=== PATIENT | male | born 1985 | race Two or more races ===

== ENCOUNTER 2025-02-09 20:00 | Emergency (ER) | payer MEDICAID, SELFPAY ==
[2025-02-09 20:20] VITALS: BP 121/69; PULSE 95; RESP 18; TEMP 36.6; O2SAT 96
--- NOTE | 2025-02-09 20:49 | PD.EDRME ---
Rapid Medical Screening Exam RME Arrival date/time: 02/09/25 20:00 40M with history of DM presents to ED after being sent by PCP for possible blood transfusion. POC Hgb at PCP was around 6. Patient denies recent unintentional weight loss, obvious source of bleeding, and red/black stools. Chief Complaint: General Adult/Misc Complain Vital signs: Vital Signs Temperature 97.9 F 02/09/25 20:20 Pulse Rate 95 02/09/25 20:20 Respiratory Rate 18 02/09/25 20:20 Blood Pressure 121/69 02/09/25 20:20 Pulse Oximetry (%) 96 02/09/25 20:20 Oxygen Delivery Method Room Air 02/09/25 20:20
[2025-02-09 21:06] LABS: Basophils % (Auto) 0 % (0-2.5); Eosinophils % (Auto) 1 % (0-10); Immature Granulocytes % (Auto) 0 % (0-0); Immature Granulocytes Auto 0.01 Thou/mm3 (0.00-0.00); Lymphocytes # (Auto) 1.7 Thou/mm3 (1.0-4.8); Lymphocytes % (Auto) 66 % (10-50); Mean Corpuscular HGB Conc 33.8 g/dl (31.0-37.0); Mean Corpuscular Volume 103 fL (80-100); Monocytes # (Auto) 0.3 Thou/mm3 (0.0-0.8); Monocytes % (Auto) 12 % (0-12); Neutrophils # (Auto) 0.5 Thou/mm3 (1.8-7.7); Neutrophils % (Auto) 20 % (37-80); Nucleated Red Blood Cell % 4 /100 WBC (0); Platelet Count 192 Thou/mm3 (140-440); RDW Standard Deviation 93.3 fL (35.1-43.9); Red Blood Count 2.06 Miln/mm3 (4.50-5.90)
[2025-02-09 21:20] LABS: Collection Type, Urine Clean Catch
[2025-02-09 21:26] LABS: Alanine Aminotransferase 21 U/L (10-49); Albumin, Serum 4.2 gm/dL (3.5-5.0); Albumin/Globulin Ratio 1.4 (1.2-2.2); Alkaline Phosphatase 102 U/L (46-116); Anion Gap 7 (7-16); Aspartate Amino Transferase 20 U/L (0-34); BUN/Creatinine Ratio 15 Ratio (12-20); Bilirubin,Total 0.3 mg/dL (0.3-1.2); Blood Urea Nitrogen 15 mg/dL (9-23); Calcium 9.5 mg/dL (8.3-10.6); Calcium (Corrected) 9.5 mg/dL (8.5-10.1); Carbon Dioxide 27.4 mMol/L (20.0-31.0); Chloride 105 mMol/L (98-107); Globulin 3.1 gm/dL (2.3-3.5); Glucose 244 mg/dL (74-106); Osmolality,Calculated 286 (275-295); Potassium 3.7 mMol/L (3.4-5.1); Sodium 139 mMol/L (136-145); Total Protein 7.3 gm/dL (5.7-8.2); eGFR > 60 See Note
[2025-02-09 21:27] LABS: Bilirubin,Urine Negative (Negative); Blood,Urine Negative (Negative); Clarity,Urine Clear (Clear/Hazy); Color,Urine Lt-Yellow (Lt Yel-Yel); Glucose, Urine 4+ (Negative); Ketones,Urine Negative (Negative); Leukocyte Esterase,Urine Negative (Negative); Nitrite,Urine Negative (Negative); PH,Urine 6.5 (5.0-7.0); Protein,Urine Trace (Neg - Trace); RBC,Urine 2 /hpf (0-3); Specific Gravity,Urine 1.031 (1.001-1.035); Squamous Epithelial Cell,Urine 4 /hpf (0-5); Urobilinogen,Urine Negative mg/dL (0.0-1.0); WBC,Urine < 1 /hpf (0-5)
[2025-02-09 22:08] LABS: Hematocrit 21.3 % (41.0-53.0); Hemoglobin 7.2 g/dL (13.5-16.0); White Blood Count 2.6 Thou/mm3 (3.8-10.6)
[2025-02-09 23:25] VITALS: BP 135/82; PULSE 72; RESP 15; TEMP 36.6; O2SAT 100
[2025-02-10] VITALS (10 sets, daily range): BP systolic 115–146; BP diastolic 78–88; PULSE 54–73; RESP 15–20; TEMP 36.4–36.8; O2SAT 98–100
--- NOTE | 2025-02-10 02:09 | PD.EDADULT ---
ED General RME/HPI General Chief complaint: General Adult/Misc Complain Stated complaint: POSSIBLE BLOOD TRANSFUSION Arrival date/time: 02/09/25 20:00 Limitations: no limitations RME / HPI RME / HPI narrative: 02/09/25 20:00 40M with history of DM presents to ED after being sent by PCP for possible blood transfusion. POC Hgb at PCP was around 6. Patient denies recent unintentional weight loss, obvious source of bleeding, and red/black stools. ------- Dr. Khan's Main ED Evaluation: 40yo male with a history of DM presents to the ED for a possible blood transfusion. Patient states he recently had outpatient labs done by his PCP and was sent over for evaluation due to having a low hemoglobin of 6. He denies any palpitations, chest pain, shortness of breath, dizziness, N/V, hematuria, hematemesis, rectal bleeding or any other associated symptoms. No known allergies. Related Data Previous Rx's ?Medication ?Instructions ?Recorded azithromycin 250 mg tablet See Rx Instructions PO .COMPLEX #6 07/28/24 tabs Allergies Allergy/AdvReac Type Severity Reaction Status Date / Time No Known Allergies Allergy Verified 02/09/25 20:01 Review of Systems Review of Systems Systems Reviewed: All systems reviewed, normal except as documented Past Medical History Past Medical History CARDIAC: Negative Congestive Heart Failure RESPIRATORY: Negative Chronic Obstructive Pulmonary Disease (COPD) GENITOURINARY: Negative Renal Disease ENDOCRINE: Positive Diabetes Mellitus Type 2; Negative Diabetes Mellitus Type 1 Social History SMOKING STATUS: Never smoker SECOND HAND EXPOSURE: No ED Exam Narrative Physical exam: Patient appears pale, otherwise no acute distress. General Limitations: Present no limitations General appearance: Present alert; Absent obtunded or in distress Head Head exam: Present atraumatic Eye Eye exam: Present normal appearance, PERRL and EOMI; Absent scleral icterus ENT ENT exam: Present normal exam, normal oropharynx and mucous membranes moist Neck Neck exam: Present normal inspection, full ROM and trachea midline Chest Chest inspection: Present normal inspection and symmetric chest wall rise Respiratory Respiratory exam: Present normal lung sounds bilaterally Cardiovascular Cardiovascular exam: Present regular rate, normal rhythm and normal heart sounds Abdominal Exam Abdominal exam: Present soft and normal bowel sounds Extremities Exam Extremities exam: Present normal inspection and full ROM Back Exam Back exam: Present normal inspection and full ROM Neurological Exam Neurological exam: Present alert, oriented X3 and CN II-XII intact Psychiatric Psychiatric exam: Present normal affect and normal mood Skin Skin exam: Present warm, dry, intact and other (Normal cap refill) Course Course Course Narrative: Patient is placed in the bed. All labs are sent. Hemoglobin shows that the number is low at 7.2/23. The patient denies prior blood per rectum or black stools. We discussed plus minuses for transfusion at this time the patient accepts transfusion. 0242-Blood transfusion is ordered Quality Measures none Orders Category Date Time Status Transfuse,blood/blood products NOW Care 02/10/25 02:11 Completed CBC Stat Lab 02/09/25 20:52 Completed CMP [Comprehensive Metabolic Panel] Stat Lab 02/09/25 20:52 Completed Packed Cells [Red Blood Cells] Stat Lab 02/10/25 02:11 Completed Path Review Blood Smear Stat Lab 02/09/25 20:52 Completed Type and Screen Stat Lab 02/09/25 20:52 Completed Urinalysis Stat Lab 02/09/25 21:10 Completed Vital Signs Vital signs: Vital Signs Temperature 97.9 F 02/09/25 20:20 Pulse Rate 95 02/09/25 20:20 Respiratory Rate 18 02/09/25 20:20 Blood Pressure 121/69 02/09/25 20:20 Pulse Oximetry (%) 96 02/09/25 20:20 Oxygen Delivery Method Room Air 02/09/25 20:20 [facility] Patient data [place] records [place] [facility] [place] (Per chart review, patient has no previous ED visits or admissions to this facility.) Clinical information provided by:: patient Social determinants that could affect healthcare access:: none Patient has the following chronic illnesses:: DM How is presenting disease/condition affected by chronic disease/condition?: uneffected by Evaluation data The following diagnostics were reviewed and interpreted by me:: lab results Lab and/or radiology exams considered but not ordered:: none Interpretation Summary: HnH is low at 7.2/21.3, Platelets are normal, Glucose is 244, UA is unremarkable, according to my interpretation. Medications Medications considered but not ordered:: none Medication administrations:: 1U PRBCs Consultations Consultation(s) initiated? (list below): No Diagnosis Differential Diagnosis ED Complaint MDM: chronic anemia, undiagnosed GI bleed, anemia secondary to diabetes Most likely diagnosis given after review of the tests above:: see clinical impression below Admission Indicated Admission indicated?: not indicated Explain why admission is indicated or not indicated:: No criteria for admission. Admission Request Was there a request for admission?: No Disposition Plan Disposition Plan: Discharge Discharge Attestation Discharge Attestation: The patient and all family members were given an opportunity to ask questions and understood the discharge instructions. Discharge instructions specifically effects, indications for sooner follow up or return to the emergency department, and the expected course of current diagnosis. Patient condition: Stable Medical Decision Making Differential Diagnosis Differential Diagnosis: chronic anemia, undiagnosed GI bleed, anemia secondary to diabetes Lab Data 02/09/25 20:52 02/09/25 20:52 Labs: Lab Results 02/09/25 02/09/25 Range/Units 20:52 21:10 WBC 2.6 L (3.8-10.6) Thou/mm3 RBC 2.06 L (4.50-5.90) Miln/mm3 Hgb 7.2 L (13.5-16.0) g/dL Hct 21.3 L* (41.0-53.0) % MCV 103 H (80-100) fL MCH 35.0 (25.0-35.0) pg MCHC 33.8 (31.0-37.0) g/dl RDW Std Deviation 93.3 H (35.1-43.9) fL Plt Count 192 (140-440) Thou/mm3 Neut % (Auto) 20 L (37-80) % Lymph % (Auto) 66 H (10-50) % Josephine % (Auto) 12 (0-12) % Eos % (Auto) 1 (0-10) % Baso % (Auto) 0 (0-2.5) % Neut # (Auto) 0.5 L (1.8-7.7) Thou/mm3 Lymph # (Auto) 1.7 (1.0-4.8) Thou/mm3 Josephine # (Auto) 0.3 (0.0-0.8) Thou/mm3 Eos # (Auto) 0.0 (0.0-0.5) Thou/mm3 Baso # (Auto) 0.0 (0.0-0.2) Thou/mm3 Immature Gran # (Auto) 0.01 H (0.00-0.00) Thou/mm3 Absolute Nucleated RBC 0.10 H (0.00-0.00) Thou/mm3 Immature Gran % 0 (0-0) % Nucleated RBC % 4 H (0) /100 WBC Smear Path Review Sent to Pathologist Sodium 139 (136-145) mMol/L Potassium 3.7 (3.4-5.1) mMol/L Chloride 105 (98-107) mMol/L Carbon Dioxide 27.4 (20.0-31.0) mMol/L Anion Gap 7 (7-16) BUN 15 (9-23) mg/dL Creatinine 1.0 (0.6-1.3) mg/dL Estim Creat Clear Calc Not Performed. eGFR > 60 (60 - ) See Note BUN/Creatinine Ratio 15 (12-20) Ratio Glucose 244 H (74-106) mg/dL Calculated Osmolality 286 (275-295) Calcium 9.5 (8.3-10.6) mg/dL Corrected Calcium 9.5 (8.5-10.1) mg/dL Total Bilirubin 0.3 (0.3-1.2) mg/dL AST 20 (0-34) U/L ALT 21 (10-49) U/L Alkaline Phosphatase 102 (46-116) U/L Total Protein 7.3 (5.7-8.2) gm/dL Albumin 4.2 (3.5-5.0) gm/dL Globulin 3.1 (2.3-3.5) gm/dL Albumin/Globulin Ratio 1.4 (1.2-2.2) Ur Collection Type Clean Catch Urine Color Lt-Yellow (Lt Yel-Yel) Urine Clarity Clear (Clear/Hazy) Urine pH 6.5 (5.0-7.0) Ur Specific [place] 1.031 (1.001-1.035) Urine Protein Trace (Neg - Trace) Urine Glucose (UA) 4+ A (Negative) Urine Ketones Negative (Negative) Urine Blood Negative (Negative) Urine Nitrite Negative (Negative) Urine Bilirubin Negative (Negative) Urine Urobilinogen (Auto) Negative (0.0-1.0) mg/dL Ur Leukocyte Esterase Negative (Negative) Urine RBC 2 (0-3) /hpf Urine WBC < 1 (0-5) /hpf Ur Squamous Epith Cells 4 (0-5) /hpf Urine Bacteria None (None) Blood Type O Positive Antibody Screen NEGATIVE Crossmatch See Detail Blood Bank Wristband ID Yes Discharge Plan Plan Patient Disposition: HOME (Self Care) Prescriptions/Referrals Prescriptions/Med Rec: No Action azithromycin 250 mg tablet See Rx Instructions PO .COMPLEX Qty: 6 0RF Rx Instructions: For 250 mg dose pack: take 500 mg today (day 1), then 250 mg for 4 days (days 2-5) PO Referrals: Family healthcare network [Other] - In 1 week (You may need referral to specialist to figure out why you are having anemia.) No Primary/Family,Physician [Primary Care Provider] - In 1 week Problem List Clinical Impression: Anemia Patient/Caregiver Discharge Instructions Education Materials: Anemia Additional Instructions: Please follow-up with your primary care to continue the workup for your anemia. Return to the emergency department for any worsening symptoms, or any other concerns Print Language: Khmer Stand Alone Forms: Melly Award Info., Patient Portal Info Letter
--- NOTE | 2025-02-10 07:27 | PC.NURSE ---
Report received from pm nurse, patient lying in gurney queitly, no distress noted, patient to er stating he was sent by pmd for low H/H patient states he has h/o anemia, denies blood in stool, denies n/v, skin is warm dry and pink, patient has PRBC'S running via 18g left forearm, no s/s of adverse reaction, patient denies pain, patient has no other needs at this time. Call light within reach.
[2025-02-10 11:52] LABS: Path Review Blood Smear Sent to Pathologist
== END 2025-02-10 09:37 | disposition home or self-care (01) ==
PROVIDERS: Physician Assistant; Emergency Provider Emergency Medicine
DX: D64.9 Anemia, unspecified (principal); E11.9 Type 2 diabetes mellitus without complications
CPT/HCPCS: 36415; 36430; 80053; 81001; 85025; 86850; 86900; 86901; 86923; 99285; P9016

== ENCOUNTER 2025-06-14 16:08 | Inpatient (IN) | payer MEDICAID, SELFPAY ==
[2025-06-14 16:09] VITALS: BMI 23.8
[2025-06-14 16:58] VITALS: BP 111/68; PULSE 104; RESP 18; TEMP 37.2; O2SAT 98
--- NOTE | 2025-06-14 18:14 | PD.EDRME ---
Rapid Medical Screening Exam RME Arrival date/time: 06/14/25 16:08 Chief Complaint: Weakness Time Seen by Provider: 06/14/25 17:40 Vital signs: Vital Signs Temperature 98.9 F 06/14/25 16:58 Pulse Rate 104 H 06/14/25 16:58 Respiratory Rate 18 06/14/25 16:58 Blood Pressure 111/68 06/14/25 16:58 Pulse Oximetry (%) 98 06/14/25 16:58 Oxygen Delivery Method Room Air 06/14/25 16:58 Vital signs reviewed by provider: Yes RME Narrative: 40-year-old insulin-dependent diabetic male presents to the ED with a complaint of chest pain and epigastric pain that comes on every 5 minutes since this past . He has had associated mild shortness of breath as well as reflux symptoms up into his throat. He has had a cough as well as the need to clear his throat. He has had vomiting but no diarrhea. He denies any fever or chills. I have greeted and performed a focused initial assessment of this patient. A comprehensive ED assessment and evaluation of the patient, analysis of all test results, and completion of the medical decision making process will be conducted by additional ED providers.
--- NOTE | 2025-06-14 18:18 | XR_ITS ---
Examination: PA chest single view TECHNIQUE: Upright PA chest single view. Date and time: June 14, 2025, 1856 hours. INDICATIONS: Chest pain today coughing 3 days FINDINGS: Normal heart size. No pneumonia or pulmonary edema. Osseous structures intact. IMPRESSION: No pneumonia or pulmonary edema
--- NOTE | 2025-06-14 18:18 | XR_ITS ---
Examination: Abdomen sonogram, complete Date and time of exam: June 14, 2025 1917 hours INDICATIONS: Jaundice right upper abdominal pain beginning one week ago. Technique: Multiple real-time grayscale transabdominal sonographic images of the abdomen have been obtained. Findings: Contracted gallbladder Gallbladder wall 0.4 cm Common bile duct 0.2 cm Pancreatic head 2.6 cm Liver 13.9 cm fatty infiltration no focal liver lesions Normal hepatopedal portal venous flow Patent IVC Right kidney 8.5 cm cortex 1.3 cm Left kidney 9.7 cm renal cortex 1.8 cm Spleen obscured by bowel gas IMPRESSION: Recommend repeating the gallbladder portion of the study with fasting Normal common bile duct Liver normal size fatty infiltration
[2025-06-14 19:13] VITALS: BP 108/69; PULSE 96; RESP 19; TEMP 36.7; O2SAT 100
[2025-06-14 19:14] LABS: Beta Hydroxybutyrate 0.0 mmol/L (<0.6)
--- NOTE | 2025-06-14 19:21 | PC.NURSE ---
medical tech at bedside
[2025-06-14 19:34] LABS: Alanine Aminotransferase 92 U/L (10-49); Albumin, Serum 3.7 gm/dL (3.5-5.0); Albumin/Globulin Ratio 1.5 (1.2-2.2); Alkaline Phosphatase 112 U/L (46-116); Amylase 127 U/L (30-118); Anion Gap 9 (7-16); Aspartate Amino Transferase 39 U/L (0-34); BUN/Creatinine Ratio 10 Ratio (12-20); Bilirubin,Total 0.4 mg/dL (0.3-1.2); Blood Urea Nitrogen 10 mg/dL (9-23); Calcium 8.3 mg/dL (8.3-10.6); Calcium (Corrected) 8.5 mg/dL (8.5-10.1); Carbon Dioxide 22.4 mMol/L (20.0-31.0); Chloride 112 mMol/L (98-107); Creatinine (Component) 1.0 mg/dL (0.6-1.3); Estimated Creatinine Clearance 68.8 mL/min (>60); Globulin 2.5 gm/dL (2.3-3.5); Glucose 136 mg/dL (74-106); Lipase 73 U/L (12-53); Magnesium 1.7 mg/dL (1.6-2.6); Osmolality,Calculated 285 (275-295); Phosphorous 3.2 mg/dL (2.4-5.1); Potassium 3.7 mMol/L (3.4-5.1); Sodium 143 mMol/L (136-145); Total Protein 6.2 gm/dL (5.7-8.2); Troponin I < 0.020 ng/mL (0.0-0.045); eGFR > 60 See Note
[2025-06-14 19:54] LABS: Amphetamine/Methamp Scrn,U Negative (Negative); Barbiturate Screen,Urine Negative (Negative); Benzodiazepines Screen,Urine Negative (Negative); Benzoylecgonine Screen, Ur Negative (Negative); Fentanyl Screen,Urine Negative (Negative); Opiate Screen,Urine Negative (Negative); THC Screen,Urine Negative (Negative)
[2025-06-14] MEDS: ONDANSETRON INJ 2 MG/ML INJ 2 ML 4 MG IVP (20:28)
[2025-06-14] MEDS: SODIUM CHLORIDE 0.9% 1000 ML 1,000 ML 999 ML IV (20:29)
[2025-06-14 20:33] VITALS: BP 103/62; PULSE 94; RESP 18; TEMP 36.7; O2SAT 100
--- NOTE | 2025-06-14 20:45 | EDNOTE_ITS ---
ED Chest Pain RME/HPI General Chief Complaint: Weakness Stated Complaint: WEAKNESS/ N/V Time Seen by Provider: 06/14/25 17:40 Arrival date/time: 06/14/25 16:08 RME / HPI RME / HPI narrative: 40-year-old insulin-dependent diabetic male presents to the ED with a complaint of chest pain and epigastric pain that comes on every 5 minutes since this past . He has had associated mild shortness of breath as well as reflux symptoms up into his throat. He has had a cough as well as the need to clear his throat. He has had vomiting but no diarrhea. He denies any fever or chills. I have greeted and performed a focused initial assessment of this patient. A comprehensive ED assessment and evaluation of the patient, analysis of all test results, and completion of the medical decision making process will be conducted by additional ED providers. DR. RAHMAN MAIN ED EVALUATION: 40 y/o male with Hx of Type II DM presents to ED c/o non-radiating, centralized chest pain with cough, dizziness, and some vomiting x 5 days. Denies fever without a formal temperature and diarrhea. Patient experienced chills on one occasion after a shower. Patient has also been eating less stating he feels something stuck in his chest when he coughs and swallows. Related Data Allergies Allergy/AdvReac Type Severity Reaction Status Date / Time No Known Allergies Allergy Verified 02/09/25 20:01 Review of Systems Review of Systems Systems Reviewed: All systems reviewed, normal except as documented Past Medical History Past Medical History ENDOCRINE: Positive Endocrine Disorders and Diabetes Mellitus Type 2 ED Exam Narrative Physical exam: GENERAL APPEARANCE: alert and oriented x 4, well-developed, well-nourished, no acute distress VITALS: All vitals were reviewed and the pulse ox is 100% on room air, which is normal according to my interpretation. HEENT: Normocephalic, atraumatic; pupils equal, round, reactive to light; EOMI; mucous membranes pink, moist; oropharynx clear NECK: Supple LUNGS: CTABL; no wheezes, no rales, no rhonchi HEART: Regular rate, regular rhythm; normal S1, S2; no murmurs ABDOMEN: non distended; normal BS; soft, mild epigastric tenderness, no guarding, no rebound; no masses, no organomegaly, no hernia BACK: no CVA tenderness EXTREMITIES: atraumatic; no edema NEUROLOGIC: awake; alert and oriented x4; cranial nerves II-XII grossly intact; no focal sensory or motor deficits PSYCHIATRIC: appropriate mood and affect SKIN: warm, dry, palor; no rashes Course Course Course Narrative: CXR is ordered for determining the etiology of shortness of breath. Quality Measures none Orders Category Date Time Status Bedside Blood Glucose NOW Care 06/14/25 19:11 Active EKG (ED ONLY) *Do not use* NOW Care 06/14/25 18:19 Completed IV [Insert IV] NOW Care 06/14/25 18:18 Active NPO STAT Care 06/14/25 18:18 Active Transfuse,blood/blood products NOW Care 06/14/25 22:39 Active Consult to Gastroenterology Stat Cons 06/14/25 22:58 Ordered EKG (ED Only) Stat Exams 06/14/25 18:18 Ordered US abdomen Stat Exams 06/14/25 18:18 Completed XR chest 1V portable Stat Exams 06/14/25 18:18 Completed Acetone [Beta Hydroxybutyrate] Stat Lab 06/14/25 18:51 Completed Amylase Stat Lab 06/14/25 18:51 Completed BNP [B-Type Natriuretic Peptide] Stat Lab 06/14/25 22:09 Completed CBC Stat Lab 06/14/25 22:09 Results Comprehensive Metabolic Panel Stat Lab 06/14/25 18:51 Completed Drug Screen,Urine Stat Lab 06/14/25 19:17 Completed Folate Stat Lab 06/14/25 20:26 Completed Iron Panel Stat Lab 06/14/25 20:26 Completed Lipase Stat Lab 06/14/25 18:51 Completed Magnesium Stat Lab 06/14/25 18:51 Completed Phosphorous Stat Lab 06/14/25 18:51 Completed Red Blood Cells Stat Lab 06/14/25 22:50 Results Troponin I Stat Lab 06/14/25 18:51 Completed Troponin I Stat Lab 06/14/25 22:09 Completed Type and Screen Stat Lab 06/14/25 22:50 Results Vitamin B12 Stat Lab 06/14/25 20:26 Completed Lidocaine 2% Viscous [Xylocaine 2% Viscous] Med 06/14/25 21:03 Discontinued 15 ml PO X1 ONE Ondansetron Inj [Zofran Inj] Med 06/14/25 18:18 Discontinued 4 mg IVP X1 ONE Sodium Chloride 0.9% 1000 ml [Ns] 1,000 ml Med 06/14/25 18:18 Discontinued IV 999 mls/hr mg Hyd/Al Hyd/Stephanie Susp [Maalox Susp] Med 06/14/25 21:03 Discontinued 30 ml PO X1 ONE Vital Signs Vital signs: Vital Signs Temperature 98.9 F 06/14/25 16:58 Pulse Rate 104 H 06/14/25 16:58 Respiratory Rate 18 06/14/25 16:58 Blood Pressure 111/68 06/14/25 16:58 Pulse Oximetry (%) 98 06/14/25 16:58 Oxygen Delivery Method Room Air 06/14/25 16:58 PROCEDURES: Stool Hemoccult Procedural Steps Taken: stool placed in appropriate test area, developer placed on stool and control areas and controls appropriately positive and negative Hemoccult result: positive Chest Pain MDM Narrative MDM Narrative:: Scribe Attestation: Shanta Viera, am scribing for and in the presence of Dr. Rahman. Provider Notation: Although this document has been carefully reviewed, there may still be some phonetic and other typographical errors.? These errors are purely grammatical due to imperfections in the software program and should not be construed in any way to? compromise the substance of the patient's medical care during this visit. Patient data External records reviewed:: [facility] previous records (Reviewed prior ED records from 02/10/25. Patient was seen for Anemia.) Clinical information provided by:: patient Social determinants that could affect healthcare access:: none Patient has the following chronic illnesses:: Type II DM How is presenting disease/condition affected by chronic disease/condition?: exacerbated by Evaluation data The following diagnostics were reviewed and interpreted by me:: lab results and radiology exam(s) Lab and/or radiology exams considered but not ordered:: None Interpretation Summary: RADIOLOGY Chest X-Ray: FINDINGS: Normal heart size. No pneumonia or pulmonary edema. Osseous structures intact. IMPRESSION: No pneumonia or pulmonary edema Abdomen US: Findings: Contracted gallbladder Gallbladder wall 0.4 cm Common bile duct 0.2 cm Pancreatic head 2.6 cm Liver 13.9 cm fatty infiltration no focal liver lesions Normal hepatopedal portal venous flow Patent IVC Right kidney 8.5 cm cortex 1.3 cm Left kidney 9.7 cm renal cortex 1.8 cm Spleen obscured by bowel gas IMPRESSION: Recommend repeating the gallbladder portion of the study with fasting Normal common bile duct Liver normal size fatty infiltration Medications / Prescriptions Medications or Prescriptions considered but not ordered:: None Medication administrations:: Medication Administration History Acetaminophen (Acetaminophen 325 Mg Tablet) 650 mg PO Q6H PRN PRN Reason: PAIN SCALE 1-3 (mild Stop: 07/14/25 23:28 Dextrose (Dextrose 50%-Water Inj 50 Ml Syringe) 25 ml IV Q15MIN PRN PRN Reason: BG 50-70 responsive npo pt Stop: 07/14/25 23:40 Dextrose (Dextrose 50%-Water Inj 50 Ml Syringe) 50 ml IV Q15MIN PRN PRN Reason: BG <50 OR BG <70 & pt unresponsive Stop: 07/14/25 23:40 Glucagon (Glucagon Inj 1 Mg Vial) 1 mg IM Q15MIN PRN PRN Reason: BG <70, and no IV access Magnesium Sulfate (Magnesium Sulfate Ivpb) 4 gm in 50 mls @ 12.5 mls/hr IV X1 ONE Stop: 06/15/25 03:34 Last Admin: 06/15/25 01:01 Dose: 12.5 mls/hr Documented By: CCT Insulin Human Lispro (Insulin Lispro (Admelog) 1 Unit/0.01 Ml Unit) 0 unit SC [facility]; Protocol Stop: 07/15/25 07:29 Ondansetron HCl (Ondansetron Inj 2 Mg/Ml Inj 2 Ml) 4 mg IVP Q6H PRN; Protocol PRN Reason: NAUSEA OR VOMITING Stop: 07/14/25 23:28 Sennosides (Senna Tablet) 1 tab PO QDAY PRN; Protocol PRN Reason: constipation Stop: 07/14/25 23:28 Discontinued Medications Al Hydrox/Mg Hydrox/Simethicone (Mg Hyd/Al Hyd/Stephanie (Maalox Reg) Susp 30 Ml Udc) 30 ml PO X1 ONE Stop: 06/14/25 21:04 Last Admin: 06/14/25 21:17 Dose: 30 ml Documented By: CCT Sodium Chloride (Ns) 1,000 mls @ 999 mls/hr IV .Q1H1M ONE Stop: 06/14/25 19:18 Last Infusion: 06/14/25 21:30 Dose: Infused Documented By: Admin: 06/14/25 20:29 Dose: 999 mls/hr Documented By: CCT Lidocaine HCl (Lidocaine Viscous 2% 15 Ml Udc) 15 ml PO X1 ONE Stop: 06/14/25 21:04 Last Admin: 06/14/25 21:17 Dose: 15 ml Documented By: CCT Ondansetron HCl (Ondansetron Inj 2 Mg/Ml Inj 2 Ml) 4 mg IVP X1 ONE; Protocol Stop: 06/14/25 18:19 Last Admin: 06/14/25 20:28 Dose: 4 mg Documented By: CCT See above Consultations Consultation(s) initiated? (list below): Yes Consultation #1 (Physician, Specialty, Details): Discussed with Dr. Kennedy for consult. Reviewed the patient?s HPI, PMHx, lab and/or radiology results. Treatment plan was discussed. Time: 22:51 Consultation #2 (Physician, Specialty, Details): Discussed with Dr. Hussein's resident for admission. Reviewed the patient?s HPI, PMHx, lab and/or radiology results. Discussed treatment plan. Will consult an admission to the hospitalist. Time: 22:56 Diagnosis Chest Pain Differential Diagnosis: atypical chest pain, costochondritis, chest p ain and other (PNA, Bronchitis, Anemia, GI bleed) Most likely diagnosis given after review of the tests above:: Symptomatic anemia Admission Indicated Admission indicated?: indicated Explain why admission is indicated or not indicated:: Symptomatic anemia Admission Request Was there a request for admission?: Yes Admission Attestation Admission request attestation: Discussed case with [] from Hospitalist service regarding admission. Discussed patients ED course, exam findings, labs, and radiology results. The Hospitalist [agrees,declines] to accept the patient for admission. Disposition Plan Disposition Plan: Admit Discharge Plan Plan Patient Disposition: Admit Acute Care w/in Hospital Problem List Clinical Impression: Symptomatic anemia
[2025-06-14 20:49] VITALS: BP 117/64; PULSE 101; RESP 16; TEMP 36.8; O2SAT 100
[2025-06-14 21:03] LABS: Basophils # (Auto) 0.0 Thou/mm3 (0.0-0.2); Basophils % (Auto) 0 % (0-2.5); Eosinophils # (Auto) 0.0 Thou/mm3 (0.0-0.5); Neutrophils # (Auto) 0.4 Thou/mm3 (1.8-7.7); Nucleated Red Blood Cell % 16 /100 WBC (0); Red Blood Count < 0.90 Miln/mm3 (4.50-5.90)
[2025-06-14] MEDS: LIDOCAINE VISCOUS 2% 15 ML UDC PO (21:17)
[2025-06-14] MEDS: MG HYD/AL HYD/SIME (Maalox Reg) SUSP 30 ML UDC PO (21:17)
[2025-06-14 21:18] LABS: B-Type Natriuretic Peptide 67 pg/mL (0-100)
[2025-06-14 22:21] LABS: Eosinophils % (Auto) 1 % (0-10); Immature Granulocytes Auto 0.02 Thou/mm3 (0.00-0.00); Lymphocytes # (Auto) 1.5 Thou/mm3 (1.0-4.8); Lymphocytes % (Auto) 69 % (10-50); Mean Corpuscular HGB Conc 32.9 g/dl (31.0-37.0); Mean Corpuscular Hemoglobin 39.1 pg (25.0-35.0); Mean Corpuscular Volume 119 fL (80-100); Monocytes # (Auto) 0.2 Thou/mm3 (0.0-0.8); Monocytes % (Auto) 11 % (0-12); Neutrophils % (Auto) 19 % (37-80); Nucleated Red Blood Cell # 0.35 Thou/mm3 (0.00-0.00); Platelet Count 138 Thou/mm3 (140-440); RDW Standard Deviation 112.9 fL (35.1-43.9)
[2025-06-14 22:22] VITALS: BP 109/69; PULSE 105; RESP 22; TEMP 36.9; O2SAT 98
[2025-06-14 22:42] LABS: Troponin I < 0.020 ng/mL (0.0-0.045)
--- NOTE | 2025-06-14 23:07 | PC.NURSE ---
Resdient Dr. Bello at bedside to speak to pt regarding admission. Pt is alert/oriented x3. Respirations are even and unlabored. No s/s of acute distress noted.
[2025-06-14 23:36] LABS: Iron 184 mcg/dL (65-175); Percent Iron Saturation 60 % (20-55); Total Iron Binding Capacity 303 mcg/dL (250-425); Unsaturated Iron Binding 119 (225-295)
[2025-06-14 23:40] LABS: Folate 18.26 ng/mL (>5.38); Vitamin B12 383 pg/mL (211-911)
--- NOTE | 2025-06-14 23:52 | PD.RESHP ---
Documentation for date of: 06/14/25 [facility] History of Present Illness History of present illness: Paulie Luna is a 40-year-old M with a PMH of T2DM on insulin in the past and anemia who presents today with generalized weakness. He says he began feeling dizzy a week ago on Saturday and felt overexerted. He reports being able to take less steps before needing to stop and catch his breath and that he has never had a prior episode similar to this. He also endorses having night sweats over his entire body this morning, an episode of vomiting yesterday where he produced mostly saliva, and a fluttering sensation near the carotids with physical exertion. He denies any recent travel history or sick contacts. In the ED, vitals showed: BP 111/68 HR 104 RR 18 Temp 98.9 SpO2 98% on room air ED Course: CBC showed low WBC 2.2 with lymphocytic predominance, critically low RBC 0.90, critically low Hgb 2.5, critically low Hct 7.6, high MCV 119, high RDW 112.9, slightly low platelet count 138 and the abnormal presence of immature granulocytes and nucleated RBCs. CMP showed slightly high chloride 112, slightly high glucose 136, slightly high AST 39, high ALT 92, high amylase 127, and high lipase 73. Iron panel showed high iron 184, normal TIBC 303, high iron saturation 60%, low unsaturated iron binding 119. UDS was negative for everything. Patient was given 1 L NS bolus x1 and po lidocaine HCl 15 mL x1. On Imaging: Abdominal ultrasound showed a normal-sized liver with fatty infiltration (repeat study recommended with fasting). CXR was unremarkable. Patient was admitted for the work-up and management of symptomatic anemia. GI (Dr. Kennedy) was consulted and is closely following the case. Review of Systems Review of Systems Narrative Review of Systems: General: Endorses fatigue and generalized weakness. Endorsed night sweats. Denies fevers or chills HEENT: Denies congestion or sore throat Heart: Endorses chest pain. Endorses pedal edema. Denies palpitations Lungs: Endorses shortness of breath. Endorses cough productive of green sputum. Abdomen: Endorses nausea and vomiting mostly saliva. Endorses constipation. Endorses yellow discoloration of nonwatery stools. Denies abdominal pain, diarrhea, or blood in stool Genitourinary: Denies frequency, urgency, dysuria, or hematuria Neurology: Endorses leg numbness. Denies any changes in vision or difficulty speaking Review of systems otherwise negative except what is mentioned above. Past Medical History Past Medical History CARDIAC: Negative Congestive Heart Failure RESPIRATORY: Negative Chronic Obstructive Pulmonary Disease (COPD) GENITOURINARY: Negative Renal Disease ENDOCRINE: Positive Endocrine Disorders and Diabetes Mellitus Type 2; Negative Diabetes Mellitus Type 1 Social History SMOKING STATUS: Never smoker SECOND HAND EXPOSURE: No Past Medical History Comments PMH COMMENT: PMH: diabetes, anemia PSH: none Medications: received a prescription for an antitussive that he does not currently take Allergies: none FH: dad and brothers have T2DM SH: endorses binge drinking on weekends (10+ drinks in total), does not smoke, 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 Skin: Cool, dry, intact, no obvious rash. Head: Normocephalic, atraumatic. Eye: Conjunctival pallor present. PERRL. Throat: Oral mucosa moist. No obvious lesions in oropharynx. Cardiovascular: Slightly tachycardic. Regular rhythm, no murmur, +S1/S2. Respiratory: Lungs are clear to auscultation, respirations unlabored, no crackles, no wheezing. Gastrointestinal: Soft, nontender, non-distended. No guarding or rebound tenderness. Extremities: Palmar pallor present. 2+ pitting pedal edema. No cyanosis, no clubbing. 2+ radial pulse bilaterally, 2+ posterior tibial pulse bilaterally. Neuro: No focal deficits observed. Conversant, moving all extremities. No overt cerebellar signs/incoordination. Psychiatric: Cooperative, appropriate affect. Results: Labs 06/14/25 22:09 06/14/25 18:51 Labs: Short CBC 06/14/25 Range/Units 22:09 WBC 2.2 L (3.8-10.6) Thou/mm3 Hgb 2.5 L* (13.5-16.0) g/dL Hct 7.6 L* (41.0-53.0) % Plt Count 138 L (140-440) Thou/mm3 BMP 06/14/25 18:51 Sodium 143 Potassium 3.7 Chloride 112 H Carbon Dioxide 22.4 BUN 10 Creatinine 1.0 Glucose 136 H Calcium 8.3 Cardiac Enzymes 06/14/25 06/14/25 Range/Units 18:51 22:09 Troponin I < 0.020 < 0.020 (0.0-0.045) ng/mL Liver Function 06/14/25 Range/Units 18:51 Total Bilirubin 0.4 (0.3-1.2) mg/dL AST 39 H (0-34) U/L ALT 92 H (10-49) U/L Alkaline Phosphatase 112 (46-116) U/L Albumin 3.7 (3.5-5.0) gm/dL Quality Measures Quality Measures none Medications Home Medications and Allergies Home Medications ?Medication ?Instructions ?Recorded ?Confirmed ?Type albuterol sulfate 90 mcg/actuation 1 puff inhalation Q6H PRN 06/15/25 06/15/25 History aerosol inhaler shortness of breath or wheezing Allergies Allergy/AdvReac Type Severity Reaction Status Date / Time No Known Allergies Allergy Verified 02/09/25 20:01 Visit Medications Acetaminophen (Acetaminophen 325 Mg Tablet) 650 mg PO Q6H PRN PRN Reason: PAIN SCALE 1-3 (mild Stop: 07/14/25 23:28 Dextrose (Dextrose 50%-Water Inj 50 Ml Syringe) 25 ml IV Q15MIN PRN PRN Reason: BG 50-70 responsive npo pt Stop: 07/14/25 23:40 Dextrose (Dextrose 50%-Water Inj 50 Ml Syringe) 50 ml IV Q15MIN PRN PRN Reason: BG <50 OR BG <70 & pt unresponsive Stop: 07/14/25 23:40 Glucagon (Glucagon Inj 1 Mg Vial) 1 mg IM Q15MIN PRN PRN Reason: BG <70, and no IV access Magnesium Sulfate (Magnesium Sulfate Ivpb) 4 gm in 50 mls @ 12.5 mls/hr IV X1 ONE Stop: 06/15/25 03:34 Insulin Human Lispro (Insulin Lispro (Admelog) 1 Unit/0.01 Ml Unit) 0 unit SC [facility]; Protocol Stop: 07/15/25 07:29 Ondansetron HCl (Ondansetron Inj 2 Mg/Ml Inj 2 Ml) 4 mg IVP Q6H PRN; Protocol PRN Reason: NAUSEA OR VOMITING Stop: 07/14/25 23:28 Sennosides (Senna Tablet) 1 tab PO QDAY PRN; Protocol PRN Reason: constipation Stop: 07/14/25 23:28 Discontinued Medications Al Hydrox/Mg Hydrox/Simethicone (Mg Hyd/Al Hyd/Stephanie (Maalox Reg) Susp 30 Ml Udc) 30 ml PO X1 ONE Stop: 06/14/25 21:04 Last Admin: 06/14/25 21:17 Dose: 30 ml Sodium Chloride (Ns) 1,000 mls @ 999 mls/hr IV .Q1H1M ONE Stop: 06/14/25 19:18 Last Infusion: 06/14/25 21:30 Dose: Infused Lidocaine HCl (Lidocaine Viscous 2% 15 Ml Udc) 15 ml PO X1 ONE Stop: 06/14/25 21:04 Last Admin: 06/14/25 21:17 Dose: 15 ml Ondansetron HCl (Ondansetron Inj 2 Mg/Ml Inj 2 Ml) 4 mg IVP X1 ONE; Protocol Stop: 06/14/25 18:19 Last Admin: 06/14/25 20:28 Dose: 4 mg Assessment & Plan Assessment Paulie Luna is a 40-year-old M with a PMH of T2DM on insulin in the past and anemia who presents today with generalized weakness. Patient was admitted for the work-up and management of symptomatic anemia. #Symptomatic macrocytic anemia #Pancytopenia #Possible myelosuppression Upon admission, patient's WBC was low at 2.2 and had critically low RBC 0.90, Hgb 2.5, Hct 7.6 but platelet count was only slightly lower at 138 (pancytopenic). Anemia is macrocytic in nature (MCV 119) with high RDW 112.9 and there is an abnormal presence of immature granulocytes and nucleated RBCs, possibly indicating issues with bone marrow. Iron panel showed high iron 184, normal TIBC 303, high iron saturation 60%, and low unsaturated iron binding of 119. FOBT was positive. Patient has a prior admission in January 2025 where his Hgb was already low at 7.2 and he was given a blood transfusion. Differential Dx: malignancy (acute leukemias, myelodysplastic syndromes, multiple myeloma, etc.), infectious suppression (EBV, hepatitis), autoimmune (SLE, RA, sarcoidosis), malnutrition (vitamin B12, folate, alcoholism), hereditary (storage diseases) At this juncture, etiology of patient's anemia is unknown. -Ordered peripheral blood smear, reticulocyte count, ferritin levels, B12 and folate levels, and thyroid levels -Transfuse hemoglobin if Hgb<7 -Placed on neutropenic precautions (consider consulting ID for their recommendations on possible need for prophylactic antibiotics) -Consider consulting hematology (Dr. Briones) for further work-up recommendations -GI (Dr. Kennedy) has been consulted, awaiting recommendations -Follow up on patient's immunization status #T2DM Upon admission, patient's blood glucose was slightly high at 136 and UA showed 4+ glucose. -Started on insulin sliding scale #Hypomagnesemia Upon admission, patient's magnesium was low at 1.7. -Replete as necessary Hospital Management: Disposition: undergoing work-up and management of symptomatic anemia Fluids: none Diet: NPO DVT Prophylaxis: SCDs (anemic) CODE STATUS: Full Code I have examined the patient and conferred with my attending, Dr. Hussein, and my senior resident, Dr. Rios, regarding them. Rodney Bello DO PGY-1 Internal Medicine Attending Provider Attestation/Addendum And out on after examination of the patient and review of the clinical data I feel that this patient needs admission to the hospital for further treatment/evaluation. I have discussed and was present for the essential components of the history, physical examination, diagnosis, and treatment plan with the resident. I agree with the patient's care as documented by the resident and amended herein by me. Benjamin Hussein DO. Although this document has been carefully reviewed, there may still be some phonetic and other typographical errors. These errors are purely grammatical due to imperfections in the software program and should not be construed in any way to compromise the substance of the patient's medical care during this visit. Patient seen and evaluated in the ED. The patient is a 40-year-old male with a reported past medical history of type 2 diabetes on insulin in the past, and anemia, presented to the ED for feelings of worsening generalized weakness and worsening pedal edema. He also endorsed associated chest pain since as well as symptoms of GERD. Upon initial workup the patient was noted to be severely anemic and pancytopenic. It was noted that on his emergency department visit on 02/10/2025 he presented to the ED at the request of his PCP for possible blood transfusion for anemia however unknown underlying cause at this time. At that visit his hemoglobin was 6. At present the patient feels dizzy however denies any chest pain at time of bedside visit, palpitations, fever, chills, blurry vision or headache. In the ED, initial labs were significant for a WBC of 2.2, hemoglobin of 2.5, hematocrit of 7.6 and a platelet count of 138. MCV was 119. CMP demonstrated a normal sodium 143, potassium 3.7, chloride 112, bicarb 22, BUN 10 and a creatinine of 1. Lipase was 73, U tox unremarkable, UA demonstrated 4+ glucose. Liver enzymes revealed AST 39, ALT 92, alk phos 112 and a normal T. bili. Gallbladder ultrasound demonstrated fatty liver and a chest x-ray was unremarkable. The ED ordered a liter of NS and for the patient to be transfused 4 units PRBCs. Patient will subsequently be admitted to telemetry for pancytopenia, consisting of severe anemia and neutropenia, unclear etiology at this time with high MCV, the differential includes B12/folate deficiencies, possible liver disease, thyroid disease, MDS, MM, acute leukemia, Red cell aplasia, aplastic anemia, etc. Will continue to transfuse for hemoglobin less than 7, we have ordered a peripheral smear, reticulocyte count, B12 and folate levels, thyroid studies and place the patient on neutropenic precautions. IDSA guidelines do not specifically cover this scenario, the 2009/2017 guidelines only cover cancer and chemotherapy related neutropenia which this patient may in fact have however even with those guidelines his ANC is greater than 100 however I do project it to remain below 500 for the foreseeable future. His ANC back in January 2025 was 500. As such, day team may consider infectious disease consult for any prophylactic antibiotics that may be recommended however I am not going to start them tonight left the patient becomes febrile. Will also consult gastroenterology considering his FOBT was positive in the ED. And I recommend a team to consult hematology tomorrow, Dr. Briones for assistance in further workup. Will continue to monitor closely, patient is stable at present. Also of note, we will need to revisit the patient's vaccination status likely tomorrow if she is not feeling well tonight and has having trouble remembering
[2025-06-15] VITALS (26 sets, daily range): BP systolic 104–126; BP diastolic 63–86; PULSE 58–97; RESP 12–20; TEMP 35.6–36.9; O2SAT 97–100; BMI 25.9
[2025-06-15 00:18] LABS: Hemoglobin 2.5 g/dL (13.5-16.0)
[2025-06-15 00:19] LABS: Hematocrit 7.6 % (41.0-53.0); White Blood Count 2.2 Thou/mm3 (3.8-10.6)
[2025-06-15 00:47] LABS: Free T4 (Free Thyroxine) 0.81 ng/dL (0.89-1.76); Thyroid Stimulating Hormone 1.49 uIU/mL (0.55-4.78)
[2025-06-15 00:52] LABS: Band Neutrophils (Manual) 1 % (0-6); Basophils (Manual) 2 % (0-2); Lymphocytes (Manual) 63 % (20-44); Macrocytosis 3+; Metamyelocytes (Manual) 1 % (0-0); Monocytes (Manual) 6 % (2-9); Neutrophils (Manual) 24 % (50-70); Other Cell Type 2.0 %; Promyelocytes (Manual) 1 % (0-0)
[2025-06-15 00:53] LABS: Anisocytosis 3+
[2025-06-15 00:54] LABS: Ovalocytes 1+
[2025-06-15 00:55] LABS: Hypochromasia Few; Schistocytes Few
[2025-06-15] MEDS: Magnesium Sulfate 4 GM Ivpb 4 GM/50 ML BAG IV (01:01)
[2025-06-15 01:03] LABS: Immature Reticulocyte Fraction 25.2 % (2.3-13.4); Reticulocyte % (Auto) 2.3 % (0.5-1.5); Reticulocyte Absolute Auto 19.0 Biln/L (25.0-75.0); Reticulocyte Hgb Content 40.1 pg (28.0-35.0)
[2025-06-15 01:09] LABS: INR 1.0 (0.9-1.3); Partial Thromboplastin Time 23.1 Seconds (22.0-36.0); Prothrombin Time 11.2 Seconds (9.0-12.2)
[2025-06-15 01:22] LABS: Path Review Blood Smear Sent to Pathologist
[2025-06-15 06:18] LABS: Ferritin 310 ng/mL (10.5-307.3)
[2025-06-15 06:32] LABS: Basophils # (Auto) 0.0 Thou/mm3 (0.0-0.2); Basophils % (Auto) 1 % (0-2.5); Eosinophils # (Auto) 0.0 Thou/mm3 (0.0-0.5); Eosinophils % (Auto) 1 % (0-10); Immature Granulocytes Auto 0.03 Thou/mm3 (0.00-0.00); Lymphocytes # (Auto) 1.4 Thou/mm3 (1.0-4.8); Lymphocytes % (Auto) 76 % (10-50); Mean Corpuscular HGB Conc 34.9 g/dl (31.0-37.0); Mean Corpuscular Hemoglobin 34.1 pg (25.0-35.0); Mean Corpuscular Volume 98 fL (80-100); Monocytes # (Auto) 0.2 Thou/mm3 (0.0-0.8); Monocytes % (Auto) 11 % (0-12); Neutrophils # (Auto) 0.2 Thou/mm3 (1.8-7.7); Neutrophils % (Auto) 11 % (37-80); Nucleated Red Blood Cell # 0.35 Thou/mm3 (0.00-0.00); Nucleated Red Blood Cell % 19 /100 WBC (0); Platelet Count 110 Thou/mm3 (140-440); RDW Standard Deviation 51.7 fL (35.1-43.9); Red Blood Count 1.76 Miln/mm3 (4.50-5.90)
[2025-06-15 06:34] LABS: Alanine Aminotransferase 73 U/L (10-49); Albumin, Serum 3.3 gm/dL (3.5-5.0); Albumin/Globulin Ratio 1.4 (1.2-2.2); Alkaline Phosphatase 87 U/L (46-116); Anion Gap 9 (7-16); Aspartate Amino Transferase 28 U/L (0-34); BUN/Creatinine Ratio 11 Ratio (12-20); Bilirubin,Total 0.5 mg/dL (0.3-1.2); Blood Urea Nitrogen 9 mg/dL (9-23); Calcium 8.2 mg/dL (8.3-10.6); Calcium (Corrected) 8.8 mg/dL (8.5-10.1); Carbon Dioxide 21.7 mMol/L (20.0-31.0); Cardiac Risk Estimate 2.9 RATIO (4.0-6.7); Chloride 113 mMol/L (98-107); Cholesterol 70 mg/dL (132-200); Creatinine (Component) 0.8 mg/dL (0.6-1.3); Estimated Creatinine Clearance 85.5 mL/min (>60); Globulin 2.3 gm/dL (2.3-3.5); Glucose 88 mg/dL (74-106); HDL Cholesterol 24 mg/dL (40-60); LDL Cholesterol,Calculated 36 mg/dL (0-130); Osmolality,Calculated 284 (275-295); Potassium 3.8 mMol/L (3.4-5.1); Sodium 144 mMol/L (136-145); Total Protein 5.6 gm/dL (5.7-8.2); Triglycerides 49 mg/dL (30-150); eGFR > 60 See Note
[2025-06-15 06:49] LABS: Collection Type, Urine Clean Catch
[2025-06-15 06:51] LABS: Hematocrit 17.2 % (41.0-53.0); Hemoglobin 6.0 g/dL (13.5-16.0); White Blood Count 1.9 Thou/mm3 (3.8-10.6)
[2025-06-15 07:13] LABS: Bilirubin,Urine Negative (Negative); Blood,Urine Negative (Negative); Clarity,Urine Clear (Clear/Hazy); Color,Urine Lt-Yellow (Lt Yel-Yel); Glucose, Urine Negative (Negative); Ketones,Urine Negative (Negative); Leukocyte Esterase,Urine Negative (Negative); Nitrite,Urine Negative (Negative); PH,Urine 6.0 (5.0-7.0); Protein,Urine Negative (Neg - Trace); RBC,Urine < 1 /hpf (0-3); Specific Gravity,Urine 1.014 (1.001-1.035); Squamous Epithelial Cell,Urine 1 /hpf (0-5); Urobilinogen,Urine Negative mg/dL (0.0-1.0); WBC,Urine < 1 /hpf (0-5)
[2025-06-15 08:54] LABS: Misc Send Out* See Sep Rpt
--- NOTE | 2025-06-15 10:07 | PC.SS ---
Patient Paulie Luna is a 40 Year old male admitted for Anemia and Weakness. SS met with patient at bedside to discuss discharge plan and verify demographic information. Patient reports he lives at home with his life partner. Patient reports that his surrogate decision maker is his sister, Kayla Luna, [phone]. Choice of pharmacy is [facility]. Patient does not have a PCP. Patient is able to ambulate and does not utilize any source of DME to assist with ambulation. At time of discharge patient will return back home. family will provide transportation. Next of Kin: Sister, Kayla Luna [phone] Discharge plan: Home
--- NOTE | 2025-06-15 10:32 | XR_ITS ---
Examination: CT abdomen with intravenous contrast CT pelvis with intravenous contrast 2-D coronal reconstructions 2-D sagittal reconstructions Date and time of exam:June 15, 2025 12:29 PM INDICATIONS: Diagnosis cirrhosis, generalized weakness anemia abdominal pain 2 days. CTDI: vol (mGy) 5.35 DLP: (mGycm) 305 Technique: Multiple axial sections of the abdomen and pelvis have been obtained. 64 slice high-resolution scanner used. 3 mm axial sections have been obtained, post intravenous injection 60 cc [id number] 2-D sagittal, coronal reconstructions obtained. Low dose protocols were performed. One or more of the following dose reduction techniques were used; automated exposure control, adjustment of the mA and/or KV according to patient size, use of iterative reconstruction technique. Findings: Heart failure pattern with cardiomegaly vascular congestion and basilar pulmonary edema and small pleural effusions Cirrhosis, liver irregular in contour with fatty infiltration Tiny gallstones Gallbladder wall is thickened and edematous Spleen is not enlarged No pancreatic or adrenal mass No hydronephrosis or renal calculi Aorta normal size Trace ascites Normal appendix No bowel obstruction No prostatomegaly IMPRESSION: Heart failure pattern Cirrhosis Acute calculus cholecystitis, consider HIDA scan or MRCP follow-up
[2025-06-15] MEDS: FOLIC ACID 1 MG TABLET PO ×2 (11:03→21:22)
[2025-06-15] MEDS: PANTOPRAZOLE 40 MG TABLET PO (11:03)
[2025-06-15] MEDS: cefTRIAXone/D5w 1gm IV premix 1 GM/50 ML BAG IV (11:03)
[2025-06-15] MEDS: THIAMINE 100 MG TABLET PO (11:03)
[2025-06-15 14:22] LABS: Basophils # (Auto) 0.0 Thou/mm3 (0.0-0.2); Basophils % (Auto) 1 % (0-2.5); Eosinophils # (Auto) 0.0 Thou/mm3 (0.0-0.5); Eosinophils % (Auto) 0 % (0-10); Hematocrit 27.3 % (41.0-53.0); Hemoglobin 9.4 g/dL (13.5-16.0); Immature Granulocytes Auto 0.03 Thou/mm3 (0.00-0.00); Lymphocytes # (Auto) 1.2 Thou/mm3 (1.0-4.8); Lymphocytes % (Auto) 69 % (10-50); Mean Corpuscular HGB Conc 34.4 g/dl (31.0-37.0); Mean Corpuscular Hemoglobin 31.5 pg (25.0-35.0); Mean Corpuscular Volume 92 fL (80-100); Monocytes # (Auto) 0.2 Thou/mm3 (0.0-0.8); Monocytes % (Auto) 11 % (0-12); Neutrophils # (Auto) 0.3 Thou/mm3 (1.8-7.7); Neutrophils % (Auto) 18 % (37-80); Nucleated Red Blood Cell # 0.33 Thou/mm3 (0.00-0.00); Nucleated Red Blood Cell % 19 /100 WBC (0); Platelet Count 98 Thou/mm3 (140-440); RDW Standard Deviation 47.8 fL (35.1-43.9); Red Blood Count 2.98 Miln/mm3 (4.50-5.90)
[2025-06-15 14:34] LABS: White Blood Count 1.8 Thou/mm3 (3.8-10.6)
[2025-06-15 14:38] LABS: INR 1.0 (0.9-1.3); Prothrombin Time 11.0 Seconds (9.0-12.2)
--- NOTE | 2025-06-15 15:22 | PC.SS ---
SS follow up note; Endoscopy pending ID consult pending. SS also attempted to contact financial counselor in regards to having patient apply for medical. SS left voicemail with contact number.
[2025-06-15] MEDS: FUROSEMIDE INJ 10 MG/ML VIAL 2 ML 20 MG IVP (15:25)
--- NOTE | 2025-06-15 18:57 | ESCONSULT_ITS ---
HPI Data of Consult Consult date: 06/15/25 Requesting Physician: Rahat Hussein DO Admitting Provider: Rahat Hussein DO Attending Provider: Rahat Hussein DO Primary Care Provider: Physician No Primary/Family Consult Narrative Reason for consult: Anemia History of present illness: Patient is a 40-year-old male with past medical history of diabetes (type unknown) and anemia. Patient states that starting last Saturday he began to feel short of breath while walking at work, with dizziness (like the room was spinning) but did not pass out. He went to [facility] on Saturday, and had some bloodwork done at that time. Patient still felt ill, then came to er yesterday. Per nursing, patient has received 4 units packed RBCs, was receiving 1 unit platelets, and will receive 1 unit FFP tonight. Patient is on reverse isolation. cc:: cc: Rahat Hussein DO Review of Systems Review of Systems Narrative Review of Systems: General: Endorses fatigue and generalized weakness. Heart: Endorses chest pain. Lungs: Endorses shortness of breath. Skin: Endorses pedal edema. Abdomen: Denies abdominal pain, diarrhea, or blood in stool Past Medical History Past Medical History Comments PMH COMMENT: PMH: diabetes, anemia PSH: none SH: endorses previous drinking (3-4 drinks/day during week, 4-5 drinks/day in on weekend), does not smoke, previous cocaine use Exam Vital Signs Temp Pulse Resp BP Pulse Ox O2 Del Method 96.7 F L 60 15 121/75 99 Room Air 06/15/25 16:00 06/15/25 16:00 06/15/25 16:00 06/15/25 16:00 06/15/25 16:00 06/15/25 16:00 Routine Respiratory Exam Respiratory: Present chest non-tender, lungs clear, normal breath sounds and no resp distress Routine Cardiovascular Exam Cardiovascular: Present RRR, S1 and S2 Routine Abdominal Exam Abdominal: Present soft and normoactive bowel sounds Comments: nontender Routine Extremities Exam Extremities: Present edema Comments: Trace pedal edema Results Labs 06/15/25 14:00 06/15/25 05:10 Labs: Short CBC 06/14/25 06/15/25 06/15/25 Range/Units 22:09 05:10 14:00 WBC 2.2 L 1.9 L 1.8 L (3.8-10.6) Thou/mm3 Hgb 2.5 L* 6.0 L* D 9.4 L D (13.5-16.0) g/dL Hct 7.6 L* 17.2 L* 27.3 L D (41.0-53.0) % Plt Count 138 L 110 L D 98 L (140-440) Thou/mm3 BMP 06/14/25 06/15/25 18:51 05:10 Sodium 143 144 Potassium 3.7 3.8 Chloride 112 H 113 H Carbon Dioxide 22.4 21.7 BUN 10 9 Creatinine 1.0 0.8 Glucose 136 H 88 Calcium 8.3 8.2 L Cardiac Enzymes 06/14/25 06/14/25 Range/Units 18:51 22:09 Troponin I < 0.020 < 0.020 (0.0-0.045) ng/mL Liver Function 06/14/25 06/15/25 Range/Units 18:51 05:10 Total Bilirubin 0.4 0.5 (0.3-1.2) mg/dL AST 39 H 28 (0-34) U/L ALT 92 H 73 H (10-49) U/L Alkaline Phosphatase 112 87 D (46-116) U/L Albumin 3.7 3.3 L (3.5-5.0) gm/dL Urine 06/15/25 Range/Units 06:29 Urine Color Lt-Yellow (Lt Yel-Yel) Urine Clarity Clear (Clear/Hazy) Urine pH 6.0 (5.0-7.0) Ur Specific [place] 1.014 (1.001-1.035) Urine Protein Negative (Neg - Trace) Urine Glucose (UA) Negative (Negative) Quality Measures Quality Measures none Medications Home Medications and Allergies Home Medications ?Medication ?Instructions ?Recorded ?Confirmed ?Type albuterol sulfate 90 mcg/actuation 1 puff inhalation Q 6H PRN 06/15/25 06/15/25 History aerosol inhaler shortness of breath or wheez ing Allergies Allergy/AdvReac Type Severity Reaction Status Date / Time No Known Allergies Allergy Verified 02/09/25 20:01 Visit Medications Acetaminophen (Acetaminophen 325 Mg Tablet) 650 mg PO Q6H PRN PRN Reason: PAIN SCALE 1-3 (mild Stop: 07/14/25 23:28 Dextrose (Dextrose 50%-Water Inj 50 Ml Syringe) 25 ml IV Q15MIN PRN PRN Reason: BG 50-70 responsive npo pt Stop: 07/14/25 23:40 Dextrose (Dextrose 50%-Water Inj 50 Ml Syringe) 50 ml IV Q15MIN PRN PRN Reason: BG <50 OR BG <70 & pt unresponsive Stop: 07/14/25 23:40 Folic Acid (Folic Acid 1 Mg Tablet) 1 mg PO BID [facility] Stop: 06/20/25 10:44 Last Admin: 06/15/25 11:03 Dose: 1 mg Glucagon (Glucagon Inj 1 Mg Vial) 1 mg IM Q15MIN PRN PRN Reason: BG <70, and no IV access Ceftriaxone Sodium/Dextrose (Rocephin/D5w 1gm Iv Premix) 1 gm in 50 mls @ 100 mls/hr IV QDAY [facility] Stop: 06/22/25 10:33 Last Admin: 06/15/25 11:03 Dose: 100 mls/hr Insulin Human Lispro (Insulin Lispro (Admelog) 1 Unit/0.01 Ml Unit) 0 unit SC [facility]; Protocol Stop: 07/15/25 07:29 Last Admin: 06/15/25 17:25 Dose: Not Given Lorazepam (Lorazepam 0.5 Mg Tablet) 0.5 mg PO Q4HR PRN PRN Reason: CIWA Score 2-6 Stop: 06/20/25 15:21 Lorazepam (Lorazepam 0.5 Mg Tablet) 1 mg PO Q4HR PRN PRN Reason: CIWA SCORE 7-11 Stop: 06/20/25 15:21 Lorazepam (Lorazepam 0.5 Mg Tablet) 2 mg PO Q4HR PRN PRN Reason: CIWA SCORE 12-15 Stop: 06/20/25 15:21 Ondansetron HCl (Ondansetron Inj 2 Mg/Ml Inj 2 Ml) 4 mg IVP Q6H PRN; Protocol PRN Reason: NAUSEA OR VOMITING Stop: 07/14/25 23:28 Pantoprazole Sodium (Pantoprazole 40 Mg Tablet) 40 mg PO QDAY [facility] Stop: 07/15/25 10:44 Last Admin: 06/15/25 11:03 Dose: 40 mg Sennosides (Senna Tablet) 1 tab PO QDAY PRN; Protocol PRN Reason: constipation Stop: 07/14/25 23:28 Thiamine HCl (Thiamine 100 Mg Tablet) 100 mg PO QDAY NITZA Stop: 07/15/25 10:44 Last Admin: 06/15/25 11:03 Dose: 100 mg Discontinued Medications Acetaminophen (Acetaminophen 325 Mg Tablet) 650 mg PO Q6H PRN PRN Reason: PAIN SCALE 1-3 (mild Stop: 07/14/25 23:28 Al Hydrox/Mg Hydrox/Simethicone (Mg Hyd/Al Hyd/Stephanie (Maalox Reg) Susp 30 Ml Udc) 30 ml PO X1 ONE Stop: 06/14/25 21:04 Last Admin: 06/14/25 21:17 Dose: 30 ml Cyanocobalamin (Cyanocobalamin Inj 1,000 Mcg/Ml Vial) 1,000 mcg IM X1 ONE Stop: 06/15/25 07:07 Last Admin: 06/15/25 09:27 Dose: 1,000 mcg Furosemide (Furosemide Inj 10 Mg/Ml Vial 2 Ml) 20 mg IVP X1 ONE Stop: 06/15/25 14:50 Last Admin: 06/15/25 15:25 Dose: 20 mg Sodium Chloride (Ns) 1,000 mls @ 999 mls/hr IV .Q1H1M ONE Stop: 06/14/25 19:18 Last Infusion: 06/14/25 21:30 Dose: Infused Magnesium Sulfate (Magnesium Sulfate Ivpb) 4 gm in 50 mls @ 12.5 mls/hr IV X1 ONE Stop: 06/15/25 03:34 Last Admin: 06/15/25 01:01 Dose: 12.5 mls/hr Lidocaine HCl (Lidocaine Viscous 2% 15 Ml Udc) 15 ml PO X1 ONE Stop: 06/14/25 21:04 Last Admin: 06/14/25 21:17 Dose: 15 ml Ondansetron HCl (Ondansetron Inj 2 Mg/Ml Inj 2 Ml) 4 mg IVP X1 ONE; Protocol Stop: 06/14/25 18:19 Last Admin: 06/14/25 20:28 Dose: 4 mg Assessment & Plan Plan Patient is a 40-year-old male with past medical history of diabetes (type unknown) and anemia, presenting for dizziness and shortness of breath. GI consulted due to low hemoglobin on admission (2.5). #Pancytopenia of unknown origin On admission, patient had a hemoglobin of 2.5 (requiring 4 units of PRBCs), MCV of 119, platelet count of 138 downtrending to 98 (requiring 1 unit of platelets), WBC count of 2.2 downtrending to 1.8; patient will also receive 1 unit of FFP tonight. Ferritin is 310, B12 is 383. Fecal occult blood test positive. Plan: Though FOBT is positive, pancytopenic nature of anemia suggest potential non-GI causes. Will perform EGD tomorrow, with potential colonoscopy afterwards. Patient will be n.p.o. after midnight for procedure. Suggest consultation with interventional radiology for bone marrow biopsy. #Diabetes Plan: Per primary team Attending Provider Attestation/Addendum 40 years old male evaluated at the request of the ER physician and the internal medicine team for a very low hemoglobin hematocrit and pancytopenia Gallbladder ultrasound shows fatty liver size 13.9 cm and a contracted gallbladder CT scan of the abdomen pelvis showed cirrhotic liver disease congestive heart failure gallbladder wall thickening and cardiomegaly and heart failure B12 folate level is normal iron saturation is 60% which is normal patient definitely FOBT positive pancytopenia may be related to underlying chronic liver disease/cirrhotic liver disease due to previous consumption of alcohol FOBT positivity with very low hemoglobin hematocrit still has to be explained recommend the following consent obtained for fiberoptic esophagogastroduodenoscopy with possible biopsy possible therapeutic intervention under intravenous moderate sedation scheduled for tomorrow N.p.o. midnight tonight also recommend IR guided bone marrow biopsy and aspirate thank you very much for the opportunity to participate in the care of this patient
--- NOTE | 2025-06-15 19:40 | ESPR_ITS ---
<Statement entered by Adryan Grimaldo MD - 06/16/25 07:39> I discussed and supervised with the technology intern physician who took care of this patient. I personally saw and examined the patient. I agree with most of the assessment and plan. Disclaimer: Despite multiple revisions, due to the dictation software being used, the document bellow may not be free of grammatical errors including phonetic/typographic errors. However, this does not deter from our commitment to providing health care in the patient's best interest in mind. Plan of care discussed with attending Physician Dr. Kyle Grimaldo MD PGY-3 Documentation for date of: 06/15/25 Subjective Subjective Interval history: 40-year-old male with history of type 2 diabetes, chronic anemia, and chronic cough, admitted for generalized weakness, fatigue, and dizziness. He reports feeling slightly better today after transfusion. Denies chest pain, fever, chills, or SOB this morning. Denies bleeding, bruising, or GI symptoms overnight. Awaiting bone marrow biopsy by IR per Dr. Villagomez. Exam Vital Signs Temp Pulse Resp BP Pulse Ox O2 Del Method 96.7 F L 60 15 121/75 99 Room Air 06/15/25 16:00 06/15/25 16:00 06/15/25 16:00 06/15/25 16:00 06/15/25 16:00 06/15/25 16:00 Narrative Exam General: Appears lethargic but alert; no acute distress. Skin: Cool, dry, intact; no rash or bruising noted. Head: Normocephalic, atraumatic. Eyes: Conjunctival pallor present. Pupils equal, round, reactive to light. Mouth/Throat: Oral mucosa moist. No oropharyngeal lesions. Cardiovascular: Slight tachycardia. Regular rhythm. No murmurs. Normal S1/S2. No JVD. Respiratory: Lungs clear to auscultation bilaterally. No crackles, wheezes, or rales. Abdomen: Soft, non-tender, non-distended. No guarding, rebound, or hepatosplenomegaly. Extremities: Palmar pallor noted. 2+ bilateral pedal edema. No cyanosis or clubbing. Pulses 2+ radial and posterior tibial bilaterally. Neuro: Alert, oriented x3. Moves all extremities spontaneously. No focal deficits. No cerebellar signs or tremor. Psychiatric: Cooperative, normal mood and affect. No agitation or confusion. Objective Labs 06/18/25 04:20 06/18/25 04:20 Labs: Laboratory Results - last 24 hr 06/14/25 06/14/25 06/14/25 19:17 20:26 22:09 WBC 2.2 L RBC < 0.90 L* Hgb 2.5 L* Hct 7.6 L* MCV 119 H MCH 39.1 H MCHC 32.9 RDW Std Deviation 112.9 H Plt Count 138 L Neut % (Auto) 19 L Lymph % (Auto) 69 H [place] % (Auto) 11 Eos % (Auto) 1 Baso % (Auto) 0 Neut # (Auto) 0.4 L Lymph # (Auto) 1.5 [place] # (Auto) 0.2 Eos # (Auto) 0.0 Baso # (Auto) 0.0 Immature Gran # (Auto) 0.02 H Absolute Nucleated RBC 0.35 H Immature Gran % 1 H Neutrophils % (Manual) 24 L Monocytes % (Manual) 6 Basophils % (Manual) 2 Metamyelocytes % 1 H Promyelocytes % 1 H Nucleated RBC % 16 H Band Neutrophils 1 Lymphocytes (Manual) 63 H Differential Comment Other Cell Type 2.0 Hypochromasia Few Anisocytosis 3+ Macrocytosis 3+ Ovalocytes 1+ Schistocytes Few Smear Path Review Retic Count (auto) Absolute Retic Immature Retic Fraction Retic Hgb Content CHr PT INR APTT Sodium Potassium Chloride Carbon Dioxide Anion Gap BUN Creatinine Estim Creat Clear Calc eGFR BUN/Creatinine Ratio Glucose Estimated Ave Glu mg/dL Cancelled Hemoglobin A1c Cancelled Calculated Osmolality Calcium Corrected Calcium Iron 184 H TIBC 303 Iron Saturation 60 H Unsat Iron Binding 119 L Ferritin Total Bilirubin AST ALT Alkaline Phosphatase Troponin I < 0.020 B-Natriuretic Peptide 67 Total Protein Albumin Globulin Albumin/Globulin Ratio Triglycerides Cholesterol LDL Cholesterol, Calc HDL Cholesterol Cholesterol/HDL Ratio Vitamin B12 383 Folate 18.26 TSH Free T4 Ur Collection Type Urine Color Urine Clarity Urine pH Ur Specific [place] Urine Protein Urine Glucose (UA) Urine Ketones Urine Blood Urine Nitrite Urine Bilirubin Urine Urobilinogen (Auto) Ur Leukocyte Esterase Urine RBC Urine WBC Ur Squamous Epith Cells Urine Bacteria Urine Opiates Screen Negative Urine Fentanyl Screen Negative Ur Barbiturates Screen Negative U Amphetamin/Meth Scrn Negative U Benzodiazepines Scrn Negative U Cocaine Metab Screen Negative U Marijuana (THC) Screen Negative Blood Type Antibody Screen Crossmatch Blood Bank Wristband ID Blood Bank Comment 06/14/25 06/14/25 06/15/25 22:50 23:57 05:10 WBC 1.9 L RBC 1.76 L* Hgb 6.0 L* D Hct 17.2 L* MCV 98 MCH 34.1 MCHC 34.9 RDW Std Deviation 51.7 H Plt Count 110 L D Neut % (Auto) 11 L Lymph % (Auto) 76 H [place] % (Auto) 11 Eos % (Auto) 1 Baso % (Auto) 1 Neut # (Auto) 0.2 L Lymph # (Auto) 1.4 [place] # (Auto) 0.2 Eos # (Auto) 0.0 Baso # (Auto) 0.0 Immature Gran # (Auto) 0.03 H Absolute Nucleated RBC 0.35 H Immature Gran % 2 H Neutrophils % (Manual) Monocytes % (Manual) Basophils % (Manual) Metamyelocytes % Promyelocytes % Nucleated RBC % 19 H Band Neutrophils Lymphocytes (Manual) Differential Comment Other Cell Type Hypochromasia Anisocytosis Macrocytosis Ovalocytes Schistocytes Smear Path Review Sent to Pathologist Retic Count (auto) 2.3 H Absolute Retic 19.0 L Immature Retic Fraction 25.2 H Retic Hgb Content CHr 40.1 H PT 11.2 INR 1.0 APTT 23.1 Sodium 144 Potassium 3.8 Chloride 113 H Carbon Dioxide 21.7 Anion Gap 9 BUN 9 Creatinine 0.8 Estim Creat Clear Calc 85.5 eGFR > 60 BUN/Creatinine Ratio 11 L Glucose [address] Glu mg/dL Hemoglobin A1c Calculated Osmolality 284 Calcium 8.2 L Corrected Calcium 8.8 Iron TIBC Iron Saturation Unsat Iron Binding Ferritin 310 H Total Bilirubin 0.5 AST 28 ALT 73 H Alkaline Phosphatase 87 D Troponin I B-Natriuretic Peptide Total Protein 5.6 L Albumin 3.3 L Globulin 2.3 Albumin/Globulin Ratio 1.4 Triglycerides 49 Cholesterol 70 L LDL Cholesterol, Calc 36 HDL Cholesterol 24 L Cholesterol/HDL Ratio 2.9 L Vitamin B12 Folate TSH 1.49 Free T4 0.81 L Ur Collection Type Urine Color Urine Clarity Urine pH Ur Specific [place] Urine Protein Urine Glucose (UA) Urine Ketones Urine Blood Urine Nitrite Urine Bilirubin Urine Urobilinogen (Auto) Ur Leukocyte Esterase Urine RBC Urine WBC Ur Squamous Epith Cells Urine Bacteria Urine Opiates Screen Urine Fentanyl Screen Ur Barbiturates Screen U Amphetamin/Meth Scrn U Benzodiazepines Scrn U Cocaine Metab Screen U Marijuana (THC) Screen Blood Type O Positive Antibody Screen NEGATIVE Crossmatch See Detail Blood Bank Wristband ID Yes Blood Bank Comment PLATP Ready 06/15/25 06/15/25 06:29 14:00 WBC 1.8 L RBC 2.98 L Hgb 9.4 L D Hct 27.3 L D MCV 92 MCH 31.5 MCHC 34.4 RDW Std Deviation 47.8 H Plt Count 98 L Neut % (Auto) 18 L Lymph % (Auto) 69 H [place] % (Auto) 11 Eos % (Auto) 0 Baso % (Auto) 1 Neut # (Auto) 0.3 L Lymph # (Auto) 1.2 [place] # (Auto) 0.2 Eos # (Auto) 0.0 Baso # (Auto) 0.0 Immature Gran # (Auto) 0.03 H Absolute Nucleated RBC 0.33 H Immature Gran % 2 H Neutrophils % (Manual) Monocytes % (Manual) Basophils % (Manual) Metamyelocytes % Promyelocytes % Nucleated RBC % 19 H Band Neutrophils Lymphocytes (Manual) Differential Comment Other Cell Type Hypochromasia Anisocytosis Macrocytosis Ovalocytes Schistocytes Smear Path Review Retic Count (auto) Absolute Retic Immature Retic Fraction Retic Hgb Content CHr PT 11.0 INR 1.0 APTT Sodium Potassium Chloride Carbon Dioxide Anion Gap BUN Creatinine Estim Creat Clear Calc eGFR BUN/Creatinine Ratio Glucose Estimated Ave Glu mg/dL Hemoglobin A1c Calculated Osmolality Calcium Corrected Calcium Iron TIBC Iron Saturation Unsat Iron Binding Ferritin Total Bilirubin AST ALT Alkaline Phosphatase Troponin I B-Natriuretic Peptide Total Protein Albumin Globulin Albumin/Globulin Ratio Triglycerides Cholesterol LDL Cholesterol, Calc HDL Cholesterol Cholesterol/HDL Ratio Vitamin B12 Folate TSH Free T4 Ur Collection Type Clean Catch Urine Color Lt-Yellow Urine Clarity Clear Urine pH 6.0 Ur Specific [place] 1.014 Urine Protein Negative Urine Glucose (UA) Negative Urine Ketones Negative Urine Blood Negative Urine Nitrite Negative Urine Bilirubin Negative Urine Urobilinogen (Auto) Negative Ur Leukocyte Esterase Negative Urine RBC < 1 Urine WBC < 1 Ur Squamous Epith Cells 1 Urine Bacteria None Urine Opiates Screen Urine Fentanyl Screen Ur Barbiturates Screen U Amphetamin/Meth Scrn U Benzodiazepines Scrn U Cocaine Metab Screen U Marijuana (THC) Screen Blood Type Antibody Screen Crossmatch Blood Bank Wristband ID Blood Bank Comment Quality Measures Quality Measures VTE prophylaxis Assessment & Plan Assessment Current Active Medications: Generic Name Dose Route Start Last Admin Trade Name Ashley PRN Reason Stop Dose Admin Acetaminophen 650 mg 06/15/25 08:12 Acetaminophen 325 Mg Tablet PO 07/14/25 23:28 Q6H PRN PAIN SCALE 1-3 (mild Dextrose 25 ml 06/14/25 23:41 Dextrose 50%-Water Inj 50 Ml Syringe IV 07/14/25 23:40 Q15MIN PRN BG 50-70 responsive npo pt Dextrose 50 ml 06/14/25 23:41 Dextrose 50%-Water Inj 50 Ml Syringe IV 07/14/25 23:40 Q15MIN PRN BG <50 OR BG <70 & pt unresponsive Folic Acid 1 mg 06/15/25 10:45 06/15/25 11:03 Folic Acid 1 Mg Tablet PO 06/20/25 10:44 1 mg BID NITZA Administration Glucagon 1 mg 06/14/25 23:41 Glucagon Inj 1 Mg Vial IM Q15MIN PRN BG <70, and no IV access Ceftriaxone Sodium/Dextrose 1 gm in 50 mls @ 100 mls/hr 06/15/25 10:34 06/15/25 11:03 Rocephin/D5w 1gm Iv Premix IV 06/22/25 10:33 100 mls/hr QDAY NITZA Administration Insulin Human Lispro 0 unit 06/15/25 07:30 06/15/25 17:25 Insulin Lispro (Admelog) 1 Unit/0.01 Ml Unit SC 07/15/25 07:29 Not Given ACHS NITZA Protocol Lorazepam 0.5 mg 06/15/25 15:22 Lorazepam 0.5 Mg Tablet PO 06/20/25 15:21 Q4HR PRN CIWA Score 2-6 Lorazepam 1 mg 06/15/25 15:22 Lorazepam 0.5 Mg Tablet PO 06/20/25 15:21 Q4HR PRN CIWA SCORE 7-11 Lorazepam 2 mg 06/15/25 15:22 Lorazepam 0.5 Mg Tablet PO 06/20/25 15:21 Q4HR PRN CIWA SCORE 12-15 Ondansetron HCl 4 mg 06/14/25 23:29 Ondansetron Inj 2 Mg/Ml Inj 2 Ml IVP 07/14/25 23:28 Q6H PRN NAUSEA OR VOMITING Protocol Pantoprazole Sodium 40 mg 06/15/25 10:45 06/15/25 11:03 Pantoprazole 40 Mg Tablet PO 07/15/25 10:44 40 mg QDAY NITZA Administration Sennosides 1 tab 06/14/25 23:29 Senna Tablet PO 07/14/25 23:28 QDAY PRN constipation Protocol Thiamine HCl 100 mg 06/15/25 10:45 06/15/25 11:03 Thiamine 100 Mg Tablet PO 07/15/25 10:44 100 mg QDAY NITZA Administration Plan 40-year-old male with type 2 diabetes, chronic anemia, and chronic cough, admitted for symptomatic macrocytic anemia and pancytopenia. Now post- transfusion with improving hemoglobin, but persistent leukopenia and thrombocytopenia. Bone marrow biopsy pending with IR. Awaiting GI evaluation for occult GI bleed. #Symptomatic Macrocytic Anemia + Pancytopenia Critically low Hgb at admission (2.5) with macrocytosis (MCV 119), pancytopenia, and low retic response suggests hypoproliferative marrow. peripheral smear shows nucleated RBCs, immature granulocytes. Etiology likely marrow-based (e.g., MDS, leukemia, aplastic anemia). Hgb improved to 9.4 (from 2.5) after 4 units PRBC. Hct now 27.3. MCV trending down (now 92 from 119). Persistent WBC 1.8, Plt 98. Retic % high, but absolute retic low. No overt bleeding or hemolysis. High iron, high saturation, normal B12/folate/TSH, mildly elevated ferritin. Plan: * Transfuse PRBCs to keep Hgb >7 (3 units given, 4th pending) * Bone marrow biopsy accepted by Dr. Villagomez (IR), pending * Peripheral smear sent * Continue neutropenic precautions * Monitor daily CBC and retic * Follow up iron panel, smear path review #GI Bleed (Occult) FOBT positive. No overt GI bleeding. Denies melena or hematochezia. GI (Dr. Kennedy) consulted and following. Plan: * GI to evaluate for source * Monitor for signs of overt bleeding * Consider EGD/colonoscopy depending on stability #Neutropenia WBC 1.9. ANC likely <1000. No current signs of infection. Risk for opportunistic infection if ANC <500. Plan: * Continue neutropenic precautions * Monitor for fever/infectious symptoms * Consider ID consult if febrile or ANC drops further * IDSA neutropenic risk score (if febrile): pending, currently afebrile #Thrombocytopenia Platelets trended from 138 --> 110 -->98 . Denies bleeding, bruising. Stable for now. Plan: * Monitor platelet count daily * No transfusion unless <10 or actively bleeding * Bleeding precautions * Trend with ongoing bone marrow workup #Possible Alcohol-Related Liver Disease #Liver Cirrhosis Reports drinking 3?4 drinks/week, last drink 1 month ago; however, prior history of binge drinking. LFTs mildly elevated. Fatty liver on US. Need to assess for cirrhosis. 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 No clinical signs of hypothyroidism. Plan: * Monitor thyroid function over time * No treatment at this time * Reassess if symptoms emerge #Type 2 Diabetes Mellitus UA with 4+ glucose. BG 136 on admission. Patient on sliding scale Plan: * Consider Continuing insulin 10u with meals * Check glucose before meals/bed * Educate on home glucose monitoring #Chronic Cough Productive cough for 6?7 years. Denies fever or new symptoms. On chronic meds: azithro, benzonatate, montelukast, methylpred, promethazine. Plan: * Continue home cough regimen * Rule out active infection (currently afebrile) * Pulm referral outpatient for chronic cough evaluation #History of Anemia Previous admission in January 2025 for low Hgb (7.2) requiring transfusion. No prior workup completed at that time. Plan: * Document prior anemia episode * Current workup ongoing #Health Maintenance Code: Full Diet: Regular, Dispo: Inpatient, pending marrow biopsy DVT Prophylaxis: SCDs only GI prophylaxis: Consider PPI if steroids continued Vaccines: Review status during hospitalization ----- Plan discussed with attending physician Dr. Wright and senior resident Dr. Dillan Ritchie MD PGY-1 Internal Medicine Attending Provider Attestation/Addendum I attest that I was physically present for the evaluation, physical examination, lab and imaging review of the patient with the residents. I discussed the case with the residents and agree with the findings and plans of care as documented above. Christopher Wright MD
--- NOTE | 2025-06-15 19:53 | PD.RESDS ---
Planned Discharge Date 06/15/25 DS: Providers Provider Date of admission: 06/14/25 23:29 Primary care physician: Physician No Primary/Family Admitting Provider: Rahat Hussein DO Attending Provider on Admission: Rahat Hussein DO Consults: 06/14/25 22:58 Consult to Gastroenterology Stat Comment: Consulting Provider: James Kennedy 06/15/25 09:12 Consult to Hematology Routine Comment: Consulting Provider: Montserrat Briones Attending Provider on DC: RESIDENT Anita Discharging Provider: RESIDENT Anita Hospital Course Hospital Course Hospital course: Patient is a 40-year-old male with past medical history of diabetes (type unknown) and anemia. Patient states that starting last Saturday he began to feel short of breath while walking at work, with dizziness (like the room was spinning) but did not pass out. He went to [facility] on Saturday, and had some bloodwork done at that time. Patient still felt ill, then came to [facility] yesterday. Patient has received 4 units packed RBCs, was receiving 1 unit platelets, and will receive 1 unit FFP tonight. Time Spent with Patient Time attestation: Total time spent providing and/or coordinating discharge services: Exam Vital Signs Temp Pulse Resp BP Pulse Ox O2 Del Method 96.7 F L 60 15 121/75 99 Room Air 06/15/25 16:00 06/15/25 16:00 06/15/25 16:00 06/15/25 16:00 06/15/25 16:00 06/15/25 16:00 Discharge Plan Prescriptions/Referrals Prescriptions/Med Rec: No Action albuterol sulfate 90 mcg/actuation HFA aerosol inhaler 1 puff INHALATION Q6H PRN (Reason: shortness of breath or wheezing) Patient Comments: INHALE 1 PUFF POR V A ORAL CADA CUATRO HORAS CUANDO SEA NECESARIO Referrals: No Primary/Family,Physician [Primary Care Provider] - Patient/Caregiver Discharge Instructions Print Language: Czech
[2025-06-16] VITALS (29 sets, daily range): BP systolic 100–151; BP diastolic 60–81; PULSE 51–99; RESP 12–20; TEMP 36.2–36.9; O2SAT 95–100; BMI 25.9
[2025-06-16 06:20] LABS: Basophils # (Auto) 0.0 Thou/mm3 (0.0-0.2); Basophils % (Auto) 1 % (0-2.5); Eosinophils # (Auto) 0.0 Thou/mm3 (0.0-0.5); Eosinophils % (Auto) 1 % (0-10); Hematocrit 27.3 % (41.0-53.0); Hemoglobin 9.8 g/dL (13.5-16.0); Immature Granulocytes Auto 0.04 Thou/mm3 (0.00-0.00); Lymphocytes # (Auto) 1.2 Thou/mm3 (1.0-4.8); Lymphocytes % (Auto) 57 % (10-50); Mean Corpuscular HGB Conc 35.9 g/dl (31.0-37.0); Mean Corpuscular Hemoglobin 32.6 pg (25.0-35.0); Mean Corpuscular Volume 91 fL (80-100); Monocytes # (Auto) 0.3 Thou/mm3 (0.0-0.8); Monocytes % (Auto) 16 % (0-12); Neutrophils # (Auto) 0.5 Thou/mm3 (1.8-7.7); Neutrophils % (Auto) 23 % (37-80); Nucleated Red Blood Cell # 0.36 Thou/mm3 (0.00-0.00); Nucleated Red Blood Cell % 17 /100 WBC (0); Platelet Count 132 Thou/mm3 (140-440); RDW Standard Deviation 49.6 fL (35.1-43.9); Red Blood Count 3.01 Miln/mm3 (4.50-5.90)
[2025-06-16 06:25] LABS: INR 1.0 (0.9-1.3); Partial Thromboplastin Time 26.2 Seconds (22.0-36.0); Prothrombin Time 11.2 Seconds (9.0-12.2)
[2025-06-16 06:34] LABS: White Blood Count 2.1 Thou/mm3 (3.8-10.6)
[2025-06-16 06:49] LABS: Alanine Aminotransferase 139 U/L (10-49); Albumin, Serum 3.6 gm/dL (3.5-5.0); Albumin/Globulin Ratio 1.3 (1.2-2.2); Alkaline Phosphatase 130 U/L (46-116); Anion Gap 9 (7-16); Aspartate Amino Transferase 84 U/L (0-34); BUN/Creatinine Ratio 9 Ratio (12-20); Bilirubin,Total 0.7 mg/dL (0.3-1.2); Blood Urea Nitrogen 8 mg/dL (9-23); Calcium 8.6 mg/dL (8.3-10.6); Calcium (Corrected) 8.9 mg/dL (8.5-10.1); Carbon Dioxide 26.5 mMol/L (20.0-31.0); Chloride 106 mMol/L (98-107); Creatinine (Component) 0.9 mg/dL (0.6-1.3); Estimated Creatinine Clearance 76.0 mL/min (>60); Globulin 2.7 gm/dL (2.3-3.5); Glucose 69 mg/dL (74-106); Magnesium 1.9 mg/dL (1.6-2.6); Osmolality,Calculated 277 (275-295); Phosphorous 3.8 mg/dL (2.4-5.1); Potassium 3.6 mMol/L (3.4-5.1); Sodium 141 mMol/L (136-145); Total Protein 6.3 gm/dL (5.7-8.2); eGFR > 60 See Note
[2025-06-16] MEDS: DEXTROSE 50%-WATER INJ 50 ML SYRINGE 25 ML IV ×2 (07:48→17:19)
--- NOTE | 2025-06-16 08:33 | XR_ITS ---
Examination: CT-guided percutaneous bone marrow aspiration right posterior superior iliac crest CT-guided percutaneous bone biopsy deep right posterior superior iliac crest INDICATIONS: Anemia unknown etiology Date and time of procedure: June 16, 2025 0937 hours Informed consent provided. A timeout was completed verifying correct patient, procedure, site and positioning. Technique: Axial 3 mm sections were obtained for localization of the lung abnormality. Appropriate area is marked. The patient's site was prepped and draped in sterile fashion Maximal sterile barrier technique utilized, including hand hygiene Local anesthesia was obtained with 1% lidocaine. Low dose protocols were performed. One or more of the following dose reduction techniques were used; automated exposure control, adjustment of the mA and/or KV according to patient size, use of iterative reconstruction technique. Utilizing CT fluoroscopic guidance 14-gauge bone biopsy needle placed in the right posterior superior iliac crest 5 cc marrow aspirate and 5 cm bone core obtained Patient appears in stable condition during this procedure. At completion of the procedure, the patient is in satisfactory condition. Estimated blood loss 2 cc Complete pathology report to follow. Impression: Successful CT-guided percutaneous bone marrow aspiration right posterior superior iliac crest Successful CT-guided percutaneous bone biopsy deep right posterior superior iliac crest
[2025-06-16] MEDS: fentaNYL CIT INJ 50 mCg/ML AMP 2ML 100 MCG IVP (09:57)
[2025-06-16 10:21] LABS: Flow Cytometry* See Sep Rpt
[2025-06-16 10:46] LABS: Hepatitis A Antibody IgM Non Reactive (Non React); Hepatitis B Core Antibody IgM Non Reactive (Non React); Hepatitis B Surface Antigen Non Reactive (Non React); Hepatitis C Antibody Non Reactive (Non React)
--- NOTE | 2025-06-16 11:11 | PC.NURSE ---
1018 patient is awake, alert, breathing unlabored, s/p bone marrow biopsy and aspiration, dressing to lower back dry with no bleeding, report given to Melly RN, patient trasnferred bakc to room 279
[2025-06-16] MEDS: cefTRIAXone/D5w 1gm IV premix 1 GM/50 ML BAG IV (11:23)
[2025-06-16] MEDS: FOLIC ACID 1 MG TABLET PO ×2 (11:24→21:43)
[2025-06-16] MEDS: THIAMINE 100 MG TABLET PO (11:24)
[2025-06-16] MEDS: PANTOPRAZOLE 40 MG TABLET PO (11:24)
[2025-06-16] MEDS: ACETAMINOPHEN 325 MG TABLET 650 MG PO (13:48)
--- NOTE | 2025-06-16 14:34 | PC.SS ---
SS follow up note; Patient is pending an endoscopy, pending EGD with Dr. Kennedy. Patient will discharge home when medically cleared.
--- NOTE | 2025-06-16 16:13 | ESPR_ITS ---
<Statement entered by Adryan Grimaldo MD - 06/16/25 16:44> Patient was seen and examined at the bedside. No acute overnight events reported. Hemoglobin improved around 9. Patient endorses mild abdominal discomfort. Patient had underwent bone marrow biopsy today. Restaurant Lead however deferred doing the procedure although it was already done later since he is attributing pancytopenia to liver cirrhosis more however will follow with biopsy results. Patient will be continued on Lasix 20 mg p.o. daily due to history of liver cirrhosis. Currently awaiting EGD per GI recs. I discussed and supervised with the hospitality internship physician who took care of this patient. I personally saw and examined the patient. I agree with most of the assessment and plan. Disclaimer: Despite multiple revisions, due to the dictation software being used, the document bellow may not be free of grammatical errors including phonetic/typographic errors. However, this does not deter from our commitment to providing health care in the patient's best interest in mind. Plan of care discussed with attending Physician Dr. Kyle Grimaldo MD PGY-3 Documentation for date of: 06/16/25 Subjective Subjective Interval history: 40-year-old male with history of type 2 diabetes, chronic anemia, and chronic alcohol use, admitted for symptomatic macrocytic anemia and pancytopenia. Patient is currently undergoing bone marrow aspiration with IR (Dr. Villagomez). He is NPO for EGD scheduled today by GI. No overnight events reported. No new bleeding, chest pain, fever, or other complaints noted by nursing. Exam Vital Signs Temp Pulse Resp BP Pulse Ox O2 Del Method O2 Flow Rate 97.6 F 71 18 111/62 96 Room Air 3 06/16/25 16:06/16/25 16:06/16/25 16:06/16/25 16:06/16/25 16:06/16/25 16:06/16/25 10:15 Narrative Exam General: Appears lethargic but alert; no acute distress. Skin: Cool, dry, intact; no rash or bruising noted. Head: Normocephalic, atraumatic. Eyes: Conjunctival pallor present. Pupils equal, round, reactive to light. Mouth/Throat: Oral mucosa moist. No oropharyngeal lesions. Cardiovascular: Slight tachycardia. Regular rhythm. No murmurs. Normal S1/S2. No JVD. Respiratory: Lungs clear to auscultation bilaterally. No crackles, wheezes, or rales. Abdomen: Soft, non-tender, non-distended. No guarding, rebound, or hepatosplenomegaly. Extremities: Palmar pallor noted. 2+ bilateral pedal edema. No cyanosis or clubbing. Pulses 2+ radial and posterior tibial bilaterally. Neuro: Alert, oriented x3. Moves all extremities spontaneously. No focal deficits. No cerebellar signs or tremor. Psychiatric: Cooperative, normal mood and affect. No agitation or confusion. Objective Labs 06/18/25 04:20 06/18/25 04:20 Labs: Laboratory Results - last 24 hr 06/14/25 06/16/25 22:50 05:20 WBC 2.1 L RBC 3.01 L Hgb 9.8 L Hct 27.3 L MCV 91 MCH 32.6 MCHC 35.9 RDW Std Deviation 49.6 H Plt Count 132 L D Neut % (Auto) 23 L Lymph % (Auto) 57 H [place] % (Auto) 16 H Eos % (Auto) 1 Baso % (Auto) 1 Neut # (Auto) 0.5 L Lymph # (Auto) 1.2 [place] # (Auto) 0.3 Eos # (Auto) 0.0 Baso # (Auto) 0.0 Immature Gran # (Auto) 0.04 H Absolute Nucleated RBC 0.36 H Immature Gran % 2 H Nucleated RBC % 17 H PT 11.2 INR 1.0 APTT 26.2 Sodium 141 Potassium 3.6 Chloride 106 Carbon Dioxide 26.5 Anion Gap 9 BUN 8 L Creatinine 0.9 Estim Creat Clear Calc 76.0 eGFR > 60 BUN/Creatinine Ratio 9 L Glucose 69 L Calculated Osmolality 277 Calcium 8.6 Corrected Calcium 8.9 Phosphorus 3.8 Magnesium 1.9 Total Bilirubin 0.7 AST 84 H ALT 139 H Alkaline Phosphatase 130 H D Total Protein 6.3 Albumin 3.6 Globulin 2.7 Albumin/Globulin Ratio 1.3 Hepatitis A IgM Ab Non Reactive Hep Bs Antigen Non Reactive Hep B Core IgM Ab Non Reactive Hepatitis C Antibody Non Reactive Blood Type O Positive Antibody Screen NEGATIVE Crossmatch See Detail Blood Bank Wristband ID Yes Blood Bank Comment FFP Ready Quality Measures Quality Measures VTE prophylaxis Assessment & Plan Assessment Current Active Medications: Generic Name Dose Route Start Last Admin Trade Name Freq PRN Reason Stop Dose Admin Acetaminophen 650 mg 06/15/25 08:12 06/16/25 13:48 Acetaminophen 325 Mg Tablet PO 07/14/25 23:28 650 mg Q6H PRN Administration PAIN SCALE 1-3 (mild Dextrose 25 ml 06/14/25 23:41 06/16/25 07:48 Dextrose 50%-Water Inj 50 Ml Syringe IV 07/14/25 23:40 25 ml Q15MIN PRN Administration BG 50-70 responsive npo pt Dextrose 50 ml 06/14/25 23:41 Dextrose 50%-Water Inj 50 Ml Syringe IV 07/14/25 23:40 Q15MIN PRN BG <50 OR BG <70 & pt unresponsive Folic Acid 1 mg 06/15/25 10:45 06/16/25 11:24 Folic Acid 1 Mg Tablet PO 06/20/25 10:44 1 mg BID NITZA Administration Furosemide 20 mg 06/16/25 15:45 06/16/25 15:57 Furosemide 20 Mg Tablet PO 07/16/25 15:44 20 mg QAM NITZA Administration Glucagon 1 mg 06/14/25 23:41 Glucagon Inj 1 Mg Vial IM Q15MIN PRN BG <70, and no IV access Ceftriaxone Sodium/Dextrose 1 gm in 50 mls @ 100 mls/hr 06/15/25 10:34 06/16/25 11:53 Rocephin/D5w 1gm Iv Premix IV 06/22/25 10:33 Infused QDAY NITZA Infusion Insulin Human Lispro 0 unit 06/16/25 12:00 06/16/25 12:00 Insulin Lispro (Admelog) 1 Unit/0.01 Ml Unit SC 07/16/25 11:59 Not Given Q6HR [facility] Protocol Lorazepam 0.5 mg 06/15/25 15:22 Lorazepam 0.5 Mg Tablet PO 06/20/25 15:21 Q4HR PRN CIWA Score 2-6 Lorazepam 1 mg 06/15/25 15:22 Lorazepam 0.5 Mg Tablet PO 06/20/25 15:21 Q4HR PRN CIWA SCORE 7-11 Lorazepam 2 mg 06/15/25 15:22 Lorazepam 0.5 Mg Tablet PO 06/20/25 15:21 Q4HR PRN CIWA SCORE 12-15 Ondansetron HCl 4 mg 06/14/25 23:29 Ondansetron Inj 2 Mg/Ml Inj 2 Ml IVP 07/14/25 23:28 Q6H PRN NAUSEA OR VOMITING Protocol Pantoprazole Sodium 40 mg 06/15/25 10:45 06/16/25 11:24 Pantoprazole 40 Mg Tablet PO 07/15/25 10:44 40 mg QDAY NITZA Administration Sennosides 1 tab 06/14/25 23:29 Senna Tablet PO 07/14/25 23:28 QDAY PRN constipation Protocol Thiamine HCl 100 mg 06/15/25 10:45 06/16/25 11:24 Thiamine 100 Mg Tablet PO 07/15/25 10:44 100 mg QDAY NITZA Administration Plan 40-year-old male with type 2 diabetes, chronic anemia, and chronic cough, admitted for symptomatic macrocytic anemia and pancytopenia. Post-transfusion with improving hemoglobin, but persistent leukopenia and transaminitis. Bone marrow biopsy is currently in progress with IR. Awaiting EGD today for evaluation of occult GI bleed. General Surgery consulted for CT-diagnosed acute cholecystitis, deferred intervention due to cirrhosis. #Symptomatic Macrocytic Anemia + Pancytopenia Critically low Hgb at admission (2.5) with macrocytosis (MCV 119), pancytopenia, and low retic response suggests hypoproliferative marrow. Peripheral smear showed nucleated RBCs, immature granulocytes. Etiology likely marrow-based (e.g., MDS, leukemia, aplastic anemia). Hgb now 9.8; Hct 27.3; MCV 91. WBC remains low at 1.8. Plt up to 132. Plan: * Transfuse only if Hgb <7 or symptomatic * Bone marrow biopsy in progress (Dr. Villagomez) * Await path review of peripheral smear * Monitor CBC and retic daily * Continue neutropenic precautions #GI Bleed (Occult) FOBT positive. No overt bleeding. GI consulted; EGD scheduled today. Plan for colonoscopy depending on results. Plan: * NPO for EGD * Monitor H&H and clinical signs * Proceed with colonoscopy if EGD negative or inconclusive #Neutropenia WBC remains low at 1.8. Afebrile. Neutropenic precautions in place. Plan: * Continue neutropenic precautions * Monitor for fever/infection * ID consult if ANC <500 or febrile #Thrombocytopenia Platelets improved to 132. No bleeding symptoms. Plan: * Monitor daily * No transfusion unless <10 or active bleeding * Continue bleeding precautions #Liver Cirrhosis / Possible Alcohol-Related Liver Disease CT confirmed cirrhosis. History of past binge drinking, last drink 1 month ago. LFTs rising (AST 84, ALT 139). Hepatitis panel negative. 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 Surgery (Dr. Velazquez) deferred intervention due to cirrhosis. Will reconsider if varices are found on EGD. Plan: * Proceed with EGD today * Re-consult Surgery if varices seen * Monitor for abdominal pain, leukocytosis, fever #Subclinical Hypothyroidism TSH normal; free T4 low at 0.81. No clinical signs. Plan: * Monitor * No treatment at this time #Type 2 Diabetes Mellitus UA 4+ glucose. BG stable. Home insulin 10u with meals. Plan: * On insulin sliding scale * Monitor pre-meal/bedtime BG * Consider checking A1c #Chronic Cough 6?7 years, productive. No current fever or new symptoms. Plan: * Continue outpatient meds * Consider outpatient pulmonary referral #History of Anemia Previous admission in January 2025 (Hgb 7.2). No formal workup done then. Plan: * Document as chronic condition * Current marrow workup ongoing #Health Maintenance * Code: Full * Dispo: Inpatient, pending EGD and marrow results * Diet: NPO for EGD * DVT Prophylaxis: SCDs only * GI Prophylaxis: PPI if methylpred continued * Vaccines: Review on stabilization ----- Plan discussed with attending physician Dr. Wright and senior resident Dr. Dillan Ritchie MD PGY-1 Internal Medicine Attending Provider Attestation/Addendum I attest that I was physically present for the evaluation, physical examination, lab and imaging review of the patient with the residents. I discussed the case with the residents and agree with the findings and plans of care as documented above. Christopher Wright MD
--- NOTE | 2025-06-16 16:53 | ESCONSULT_ITS ---
HPI Consult details Consult date: 06/16/25 Reason for consultation narrative: Patient was seen in consultation because of cholecystitis Meds Home Medications and Allergies Home Medications ?Medication ?Instructions ?Recorded ?Confirmed ?Type albuterol sulfate 90 mcg/actuation 1 puff inhalation Q 6H PRN 06/15/25 06/15/25 History aerosol inhaler shortness of breath or wheez ing Allergies Allergy/AdvReac Type Severity Reaction Status Date / Time No Known Allergies Allergy Verified 06/16/25 08:04 Exam Vital Signs Temp Pulse Resp BP Pulse Ox O2 Del Method O2 Flow Rate 97.6 F 71 18 111/62 96 Room Air 3 06/16/25 16:00 06/16/25 16:00 06/16/25 16:00 06/16/25 16:00 06/16/25 16:00 06/16/25 16:00 06/16/25 10:15 Assessment & Plan Additional Assessment Additional comments: Impression: Patient does not have any pain in the gallbladder shows no gallstones. There is thickening of the gallbladder wall with contraction and it is a nonspecific finding Plan Plan: I do not know whether the patient has cirrhosis but he does not require surgical intervention for the contracted gallbladder
--- NOTE | 2025-06-16 20:27 | SUR.PHASEI ---
2026 Patient arrived to recovery resting comfortably in [facility], oxygen 2L via nasal cannula initiated, breathing unlabored, vital signs stable, denies pain and nausea, report received from Shayna GAUTAM
--- NOTE | 2025-06-16 21:20 | SUR.PHASEI ---
2114 Report given to David GAUTAM, patient meets discharge criteria from recovery, awake and responding to staff, breathing unlabored, vital signs stable, denies pain and nausea 2119 Patient transported via gurney to room 355 without incident, patient able to ambulate from rney to bed with stand-by assist, patient resting comfortably in bed with David GAUTAM at bedside when this card writer hand left patients room
[2025-06-16] MEDS: NA SU/NAHCO3/KC/PEG (Golytely) 4,000 ML BTL 4000 ML PO (21:47)
[2025-06-17] VITALS (20 sets, daily range): BP systolic 99–177; BP diastolic 32–93; PULSE 57–85; RESP 15–20; TEMP 36.1–36.8; O2SAT 93–100; BMI 25.8; BMI 25.9
[2025-06-17 06:38] LABS: Basophils # (Auto) 0.0 Thou/mm3 (0.0-0.2); Basophils % (Auto) 1 % (0-2.5); Eosinophils # (Auto) 0.0 Thou/mm3 (0.0-0.5); Eosinophils % (Auto) 1 % (0-10); Hematocrit 29.6 % (41.0-53.0); Hemoglobin 10.1 g/dL (13.5-16.0); Immature Granulocytes Auto 0.03 Thou/mm3 (0.00-0.00); Lymphocytes # (Auto) 1.1 Thou/mm3 (1.0-4.8); Lymphocytes % (Auto) 68 % (10-50); Mean Corpuscular HGB Conc 34.1 g/dl (31.0-37.0); Mean Corpuscular Hemoglobin 32.4 pg (25.0-35.0); Mean Corpuscular Volume 95 fL (80-100); Monocytes # (Auto) 0.2 Thou/mm3 (0.0-0.8); Monocytes % (Auto) 15 % (0-12); Neutrophils # (Auto) 0.2 Thou/mm3 (1.8-7.7); Neutrophils % (Auto) 14 % (37-80); Nucleated Red Blood Cell # 0.21 Thou/mm3 (0.00-0.00); Nucleated Red Blood Cell % 13 /100 WBC (0); Platelet Count 111 Thou/mm3 (140-440); RDW Standard Deviation 52.0 fL (35.1-43.9); Red Blood Count 3.12 Miln/mm3 (4.50-5.90)
[2025-06-17 06:48] LABS: White Blood Count 1.7 Thou/mm3 (3.8-10.6)
[2025-06-17 07:04] LABS: Alanine Aminotransferase 239 U/L (10-49); Albumin, Serum 3.4 gm/dL (3.5-5.0); Albumin/Globulin Ratio 1.2 (1.2-2.2); Alkaline Phosphatase 122 U/L (46-116); Anion Gap 12 (7-16); Aspartate Amino Transferase 129 U/L (0-34); BUN/Creatinine Ratio 6 Ratio (12-20); Bilirubin,Total 0.6 mg/dL (0.3-1.2); Blood Urea Nitrogen 5 mg/dL (9-23); Calcium 8.7 mg/dL (8.3-10.6); Calcium (Corrected) 9.2 mg/dL (8.5-10.1); Carbon Dioxide 22.9 mMol/L (20.0-31.0); Chloride 106 mMol/L (98-107); Creatinine (Component) 0.9 mg/dL (0.6-1.3); Estimated Creatinine Clearance 75.9 mL/min (>60); Globulin 2.8 gm/dL (2.3-3.5); Glucose 91 mg/dL (74-106); Magnesium 1.7 mg/dL (1.6-2.6); Osmolality,Calculated 278 (275-295); Phosphorous 3.0 mg/dL (2.4-5.1); Potassium 4.0 mMol/L (3.4-5.1); Sodium 141 mMol/L (136-145); Total Protein 6.2 gm/dL (5.7-8.2); eGFR > 60 See Note
[2025-06-17] MEDS: cefTRIAXone/D5w 1gm IV premix 1 GM/50 ML BAG IV (08:46)
[2025-06-17] MEDS: FOLIC ACID 1 MG TABLET PO ×2 (08:46→20:40)
[2025-06-17] MEDS: THIAMINE 100 MG TABLET PO (08:46)
[2025-06-17] MEDS: PANTOPRAZOLE 40 MG TABLET PO (08:46)
[2025-06-17] MEDS: Magnesium Sulfate 4 GM Ivpb 4 GM/50 ML BAG IV (08:47)
--- NOTE | 2025-06-17 10:05 | ECHO_ITS ---
Transthoracic Echo Report Ht (in): 57 Wt (lb): 123 Exam Location: Echo Lab Status: Inpatient Systems Test Analyst: Marcia Fernandez Indications: Procedure Performed: BP: 107 / 69 HR: 64 Technical Quality: Technically difficult study MEASUREMENTS (Male / Female) Normal Values 2D ECHO LV Diastolic Diameter PLAX 4.7 cm 4.2 - 5.9 / 3.9 - 5.3 cm LV Systolic Diameter PLAX 3.1 cm IVS Diastolic Thickness 0.7 cm 0.6 - 1.0 / 0.6 - 0.9 cm LVPW Diastolic Thickness 0.8 cm 0.6 - 1.0 / 0.6 - 0.9 cm LV Relative Wall Thickness 0.3 LVOT Diameter 1.8 cm Aortic Root Diameter 2.6 cm LA Systolic Diameter LX 2.6 cm 3.0 - 4.0 / 2.7 - 3.8 cm LA Volume Index 17.5 cm?/m? 16 - 28 cm?/m? M-MODE Aortic Root Diameter MM 2.6 cm LA Systolic Diameter MM 3.2 cm LA Ao Ratio MM 1.2 AV Cusp Separation MM 1.5 cm DOPPLER AV Peak Velocity 173.0 cm/s AV Peak Gradient 12.0 mmHg AV Mean Gradient 6.0 mmHg AV Velocity Time Integral 39.1 cm LVOT Peak Velocity 136.5 cm/s LVOT Peak Gradient 7.5 mmHg LVOT Velocity Time Integral 26.2 cm LVOT Cardiac Index 2814.1 cm?/min?m? AV Area Cont Eq vti 1.7 cm? AV Area Cont Eq pk 2.0 cm? MV Area PHT 4.2 cm? MR Peak Velocity 390.0 cm/s MR Peak Gradient 60.8 mmHg Mitral E Point Velocity 115.0 cm/s Mitral A Point Velocity 81.5 cm/s Mitral E to A Ratio 1.4 LV E' Lateral Velocity 14.1 cm/s Mitral E to LV E' Lateral Ratio 8.2 LV E' Septal Velocity 10.1 cm/s Mitral E to LV E' Septal Ratio 11.4 TR Peak Velocity 232.5 cm/s TR Peak Gradient 21.6 mmHg PV Peak Velocity 115.0 cm/s PV Peak Gradient 5.3 mmHg FINDINGS Left Ventricle Normal left ventricular size, wall thickness, systolic function with no obvious regional wall motion abnormalities. Normal left ventricular diastolic filling pattern for age. The ejection fraction is visually estimated at 55-60%. Right Ventricle The right ventricle is normal in size and systolic function. Left Atrium The left atrium is normal by two-dimensional, color flow and Doppler imaging with no structural abnormalities, no thrombus formation present. Right Atrium The right atrium is normal by two-dimensional imaging, color flow and Doppler imaging with no structural abnormalities, no thrombus formation present. Atrial Septum The interatrial septum appears normal with no evidence of a shunt. Aorta The aorta is normal by two-dimensional, color flow and Doppler interrogation. Mitral Valve The mitral valve is normal by two-dimensional, color flow and Doppler interrogation. Trace mitral regurgitation. Aortic Valve The aortic valve is trileaflet and normal by two-dimensional, color flow and Doppler interrogation. There is no significant aortic valve regurgitation. Tricuspid Valve The tricuspid valve is normal by two-dimensional, color flow and Doppler interrogation. There is mild tricuspid valve regurgitation. Pulmonic Valve The pulmonic valve is not well visualized. There is no significant pulmonic valve regurgitation. Vessels The pulmonary artery appears normal. The inferior vena cava pulmonary and hepatic veins appear normal. Pericardium The pericardium is normal by two-dimensional imaging. There is no significant pericardial effusion. CONCLUSIONS Indication: Cardiomegaly with HF pattern Normal LV size and wall thickness. Normal left ventricular diastolic function. Estimated EF at 55-60%. The RV is normal in size and systolic function. Trace mitral and trace tricuspid regurgitation Veronica Abarca (Electronically Signed) Final Date: 17 June 2025 21:42
--- NOTE | 2025-06-17 14:37 | ESPR_ITS ---
<Statement entered by Yoseph Saucedo MD - 06/17/25 19:00> Patient seen and examined at bedside. I discussed and supervised with the editorial intern physician who took care of this patient. I personally saw and examined the patient. I agree with most of the assessment and plan. Colonoscopy performed,only showed hemorrhoids. Pending bone marrow aspiration path report. Pending biopsy of duodenal mass found on EGD. Plan of care discussed with attending Dr. Calhoun. Yoseph Saucedo MD PGY-2 Documentation for date of: 06/17/25 Subjective Subjective Interval history: Patient seen and evaluated this morning. Reports continued improvement and feeling overall well. No abdominal pain, nausea, vomiting, or change in bowel habits. Denies chest pain, dizziness, or shortness of breath. Tolerating clear liquids. No bleeding reported. No post-EGD or bone marrow biopsy complaints. States he was informed of an upcoming colonoscopy and has started the prep. Exam Vital Signs Temp Pulse Resp BP Pulse Ox O2 Del Method O2 Flow Rate 97.0 F 64 20 107/69 97 Room Air 2 06/17/25 12:00 06/17/25 12:00 06/17/25 12:00 06/17/25 12:00 06/17/25 12:06/17/25 12:06/16/25 20:42 Narrative Exam General: Appears lethargic but alert; no acute distress. Skin: Cool, dry, intact; no rash or bruising noted. Head: Normocephalic, atraumatic. Eyes: Conjunctival pallor present. Pupils equal, round, reactive to light. Mouth/Throat: Oral mucosa moist. No oropharyngeal lesions. Cardiovascular: Regular rhythm. No murmurs. Normal S1/S2. No JVD. Respiratory: Lungs clear to auscultation bilaterally. No crackles, wheezes, or rales. Abdomen: Soft, non-tender, non-distended. No guarding, rebound, or hepatosplenomegaly. Extremities: No edema. No cyanosis or clubbing. Pulses 2+ radial and posterior tibial bilaterally. Neuro: Alert, oriented x3. Moves all extremities spontaneously. No focal deficits. No cerebellar signs or tremor. Psychiatric: Cooperative, normal mood and affect. No agitation or confusion. Objective Labs 06/18/25 04:20 06/18/25 04:20 Labs: Laboratory Results - last 24 hr 06/17/25 05:36 WBC 1.7 L RBC 3.12 L Hgb 10.1 L Hct 29.6 L MCV 95 MCH 32.4 MCHC 34.1 RDW Std Deviation 52.0 H Plt Count 111 L Neut % (Auto) 14 L Lymph % (Auto) 68 H [place] % (Auto) 15 H Eos % (Auto) 1 Baso % (Auto) 1 Neut # (Auto) 0.2 L Lymph # (Auto) 1.1 [place] # (Auto) 0.2 Eos # (Auto) 0.0 Baso # (Auto) 0.0 Immature Gran # (Auto) 0.03 H Absolute Nucleated RBC 0.21 H Immature Gran % 2 H Nucleated RBC % 13 H Sodium 141 Potassium 4.0 Chloride 106 Carbon Dioxide 22.9 Anion Gap 12 BUN 5 L Creatinine 0.9 Estim Creat Clear Calc 75.9 eGFR > 60 BUN/Creatinine Ratio 6 L Glucose 91 Calculated Osmolality 278 Calcium 8.7 Corrected Calcium 9.2 Phosphorus 3.0 Magnesium 1.7 Total Bilirubin 0.6 AST 129 H ALT 239 H Alkaline Phosphatase 122 H Total Protein 6.2 Albumin 3.4 L Globulin 2.8 Albumin/Globulin Ratio 1.2 Quality Measures Quality Measures VTE prophylaxis Assessment & Plan Assessment Current Active Medications: Generic Name Dose Route Start Last Admin Trade Name Freq PRN Reason Stop Dose Admin Acetaminophen 650 mg 06/15/25 08:12 06/16/25 13:48 Acetaminophen 325 Mg Tablet PO 07/14/25 23:28 650 mg Q6H PRN Administration PAIN SCALE 1-3 (mild Dextrose 25 ml 06/14/25 23:41 06/16/25 17:19 Dextrose 50%-Water Inj 50 Ml Syringe IV 07/14/25 23:40 25 ml Q15MIN PRN Administration BG 50-70 responsive npo pt Dextrose 50 ml 06/14/25 23:41 Dextrose 50%-Water Inj 50 Ml Syringe IV 07/14/25 23:40 Q15MIN PRN BG <50 OR BG <70 & pt unresponsive Folic Acid 1 mg 06/15/25 10:45 06/17/25 08:46 Folic Acid 1 Mg Tablet PO 06/20/25 10:44 1 mg BID NITZA Administration Furosemide 20 mg 06/16/25 15:45 06/17/25 08:46 Furosemide 20 Mg Tablet PO 07/16/25 15:44 20 mg QAM NITZA Administration Glucagon 1 mg 06/14/25 23:41 Glucagon Inj 1 Mg Vial IM Q15MIN PRN BG <70, and no IV access Ceftriaxone Sodium/Dextrose 1 gm in 50 mls @ 100 mls/hr 06/15/25 10:34 06/17/25 08:46 Rocephin/D5w 1gm Iv Premix IV 06/22/25 10:33 100 mls/hr QDAY NITZA Administration Insulin Human Lispro 0 unit 06/17/25 07:30 06/17/25 11:33 Insulin Lispro (Admelog) 1 Unit/0.01 Ml Unit SC 07/17/25 07:29 Not Given ACHS NTIZA Protocol Lorazepam 0.5 mg 06/15/25 15:22 Lorazepam 0.5 Mg Tablet PO 06/20/25 15:21 Q4HR PRN CIWA Score 2-6 Lorazepam 1 mg 06/15/25 15:22 Lorazepam 0.5 Mg Tablet PO 06/20/25 15:21 Q4HR PRN CIWA SCORE 7-11 Lorazepam 2 mg 06/15/25 15:22 Lorazepam 0.5 Mg Tablet PO 06/20/25 15:21 Q4HR PRN CIWA SCORE 12-15 Ondansetron HCl 4 mg 06/14/25 23:29 Ondansetron Inj 2 Mg/Ml Inj 2 Ml IVP 07/14/25 23:28 Q6H PRN NAUSEA OR VOMITING Protocol Pantoprazole Sodium 40 mg 06/15/25 10:45 06/17/25 08:46 Pantoprazole 40 Mg Tablet PO 07/15/25 10:44 40 mg QDAY NITZA Administration Sennosides 1 tab 06/14/25 23:29 Senna Tablet PO 07/14/25 23:28 QDAY PRN constipation Protocol Thiamine HCl 100 mg 06/15/25 10:45 06/17/25 08:46 Thiamine 100 Mg Tablet PO 07/15/25 10:44 100 mg QDAY NITZA Administration Plan 40-year-old male with type 2 diabetes, chronic anemia, and chronic alcohol use, admitted for symptomatic macrocytic anemia and pancytopenia. EGD revealed a duodenal mass (biopsied), and bone marrow aspiration was completed by IR. CT abdomen showed cirrhosis, heart failure pattern, and cholecystitis. Colonoscopy scheduled. Patient continues to improve clinically. #Symptomatic Macrocytic Anemia + Pancytopenia Patient presented with macrocytic anemia and pancytopenia. Peripheral smear showed immature granulocytes and nucleated RBCs. Retic % elevated but absolute count low. Iron studies and B12/folate/TSH unremarkable. Bone marrow biopsy completed, pathology pending. Plan: * Monitor CBC and retic daily * Maintain neutropenic precautions * No transfusions needed currently * Await marrow pathology and smear review #Duodenal Mass (Possible GI Source) FOBT positive. EGD revealed large frond-like/villous duodenal bulb mass, biopsied. No active bleeding. Gastritis also noted. GI following. Plan: * Await duodenal biopsy pathology * Patient on clear liquid diet and GoLytely bowel prep * Colonoscopy planned with consent for possible biopsy/polypectomy * Monitor for overt GI bleeding or drop in H/H #Neutropenia Persistent leukopenia. Patient remains afebrile and asymptomatic. Plan: * Continue neutropenic precautions * Monitor for fever or infection * No ID consult or antibiotics unless febrile or ANC drops #Thrombocytopenia Platelets remain mildly low. No bleeding reported. Plan: * Monitor platelet trend * No transfusion unless bleeding or critically low * Continue bleeding precautions #Liver Cirrhosis / Alcohol-Related Liver Disease Cirrhotic liver seen on CT. Hepatitis panel negative. AST elevated, ALT normalized. Albumin slightly low. History of prior binge drinking. Imaging also showed CHF pattern and cardiomegaly. 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 No current symptoms. Surgery deferred due to cirrhosis. Will reconsider if GI findings evolve. Plan: * Monitor for RUQ pain, fever, or leukocytosis * Reconsult surgery if clinical change or if biopsy alters plan * Consider HIDA/MRCP outpatient if symptoms develop #Type 2 Diabetes Mellitus On insulin at home. Glucose stable during hospitalization. Plan: * Continue insulin with meals * Monitor fingerstick glucose #Subclinical Hypothyroidism Low-normal free T4 with normal TSH. Asymptomatic. Plan: * Monitor thyroid function * No intervention at this time #Chronic Cough Longstanding, stable. No acute infectious symptoms. Plan: * Continue current medications * Consider outpatient pulmonary referral #History of Anemia (Resolved) Previously transfused in January 2025. Anemia now improving. Plan: * Document as part of chronic problem list * No acute issues currently #Symptomatic Anemia / Transfusion Need (Resolved) Transfused on admission. Currently stable and transfusion-independent. Plan: * No transfusion indicated #Electrolyte Abnormalities (Magnesium) Magnesium low-normal at 1.7. Plan: * Repleting with 4g IV today * Monitor daily #Health Maintenance * Code status: Full * Disposition: Inpatient, clinically stable, pending biopsy results * Diet: Clear liquids for colonoscopy * DVT prophylaxis: SCDs only * GI prophylaxis: Continue PPI (on Protonix) * Vaccines: To be reviewed prior to discharge Attending Provider Attestation/Addendum Isis Viera DO, attest that I was physically present for the leblanc portions of the service and evaluated the patient with the resident and I reviewed and discussed the case with the resident and agree with the resident's findings and plans of care as documented above Patient seen and evaluated this AM. He underwent endoscopy yesterday during which patient was found to have a duodenal mass and biopsy was obtained. Patient underwent bone marrow BX yesterday as well. He jeremias any weight loss, loss of appetite and states that he works in [employer], but does not get much time to eat due to work. He denies any fevers or chills. He endorses drinking 10-11 beers on weekends. Patient is currently undergoing colon prep for colonoscopy this evening. Case was discussed with hematology and suspects bone marrow suppression from patient's alcohol use. Will f/u with colonoscopy results and bx results. H/H has otherwise been stable
[2025-06-17] MEDS: INSULIN LISPRO (AdmeLOG) 1 UNIT/0.01 ML UNIT SC (20:40)
[2025-06-18] VITALS: PULSE 70
[2025-06-18 04:00] VITALS: BP 96/69; PULSE 68; RESP 17; TEMP 36.5; O2SAT 95
[2025-06-18 05:35] VITALS: BMI 25.0
[2025-06-18 06:40] LABS: Basophils # (Auto) 0.0 Thou/mm3 (0.0-0.2); Basophils % (Auto) 0 % (0-2.5); Eosinophils # (Auto) 0.0 Thou/mm3 (0.0-0.5); Eosinophils % (Auto) 1 % (0-10); Hematocrit 30.2 % (41.0-53.0); Hemoglobin 10.3 g/dL (13.5-16.0); Immature Granulocytes Auto 0.02 Thou/mm3 (0.00-0.00); Lymphocytes # (Auto) 1.5 Thou/mm3 (1.0-4.8); Lymphocytes % (Auto) 69 % (10-50); Mean Corpuscular HGB Conc 34.1 g/dl (31.0-37.0); Mean Corpuscular Hemoglobin 32.6 pg (25.0-35.0); Mean Corpuscular Volume 96 fL (80-100); Monocytes # (Auto) 0.3 Thou/mm3 (0.0-0.8); Monocytes % (Auto) 13 % (0-12); Neutrophils # (Auto) 0.4 Thou/mm3 (1.8-7.7); Neutrophils % (Auto) 17 % (37-80); Nucleated Red Blood Cell # 0.15 Thou/mm3 (0.00-0.00); Nucleated Red Blood Cell % 7 /100 WBC (0); Platelet Count 116 Thou/mm3 (140-440); RDW Standard Deviation 51.1 fL (35.1-43.9); Red Blood Count 3.16 Miln/mm3 (4.50-5.90)
[2025-06-18 06:53] LABS: White Blood Count 2.2 Thou/mm3 (3.8-10.6)
[2025-06-18 07:01] LABS: Alanine Aminotransferase 171 U/L (10-49); Albumin, Serum 3.8 gm/dL (3.5-5.0); Albumin/Globulin Ratio 1.7 (1.2-2.2); Alkaline Phosphatase 116 U/L (46-116); Anion Gap 9 (7-16); Aspartate Amino Transferase 51 U/L (0-34); BUN/Creatinine Ratio 8 Ratio (12-20); Bilirubin,Total 0.4 mg/dL (0.3-1.2); Blood Urea Nitrogen 8 mg/dL (9-23); Calcium 9.0 mg/dL (8.3-10.6); Calcium (Corrected) 9.2 mg/dL (8.5-10.1); Carbon Dioxide 26.1 mMol/L (20.0-31.0); Chloride 105 mMol/L (98-107); Creatinine (Component) 1.0 mg/dL (0.6-1.3); Estimated Creatinine Clearance 65.3 mL/min (>60); Globulin 2.3 gm/dL (2.3-3.5); Glucose 99 mg/dL (74-106); Magnesium 2.4 mg/dL (1.6-2.6); Osmolality,Calculated 277 (275-295); Phosphorous 4.1 mg/dL (2.4-5.1); Potassium 4.1 mMol/L (3.4-5.1); Sodium 140 mMol/L (136-145); Total Protein 6.1 gm/dL (5.7-8.2); eGFR > 60 See Note
--- NOTE | 2025-06-18 07:32 | ESCONSULT_ITS ---
RE: WALTER BURGOS : 1985 DATE OF CONSULTATION: 06/15/2025 REFERRING PHYSICIAN: Bony Ritchie MD REASON FOR CONSULTATION: Pancytopenia. HISTORY OF PRESENT ILLNESS: Mr. Jeremy Apodaca is a 40-year-old gentleman with past medical history of diabetes mellitus type 2, on insulin in the past and anemia who came in today with a generalized weakness. He was feeling dizzy. A week ago on Saturday, he felt overexerted. He was able to take a few steps and then he has to stop and catch his breath. He did not have any kind of episode like this before. He denies any vomiting or use of nonsteroidal anti-inflammatory. He mentioned to me that he was taking iron pill. He was told he had anemia, but then he stopped taking that because his anemia got better and then recently he started taking them again, but he cannot give a lot of information. He denies gastroesophageal reflux disease or any episode of acute or chronic blood loss. He had an episode of vomiting the day before prior to admission where he produced mostly saliva and had a fluttering sensation near the carotids with physical exertion. In the emergency room, his blood count showed WBC of 2.2 with lymphocytic predominance, hemoglobin of 2.5, hematocrit of 7.6, MCV of 119, RDW of 112.9, low platelet count of 138,000 with abnormal presence of immature granulocytes and nucleated RBCs. His serum iron was 184. Total iron binding capacity was 303. Iron saturation was 60. PAST MEDICAL HISTORY: Significant for diabetes mellitus. No other major illness or surgeries. SOCIAL HISTORY: He is a nonsmoker. 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 FAMILY HISTORY: There is no history of cancer blood disorder in the family. ALLERGIES: NO KNOWN ALLERGIES. PHYSICAL EXAMINATION: GENERAL: He is alert. He is afebrile. VITAL SIGNS: Heart is stable. HEENT: Pupil are reactive to light. Sclerae are nonicteric. Conjunctiva is pale. NECK: Neck is supple. There is no JVD or palpable masses. LUNGS: There is good air entry bilaterally. They are clear to auscultation and percussion. HEART: Regular. ABDOMEN: Soft. Bowel sounds are present. EXTREMITIES: 3+ pedal pulses. No cyanosis or edema seen. CENTRAL NERVOUS SYSTEM: The patient is able to move and follow simple commands. RECOMMENDATION: His blood work done today. LABORATORY DATA: He had received blood transfusion, which showed WBC count of 1.8, hemoglobin 9.4, hematocrit 27.3 with normal indices, platelet count of 98,000. On 06/14/2025, his WBC count was 2.2, hemoglobin was 2.5, hematocrit was 7.6, and platelet count was 138,000. His vitamin B12 and folate levels are within normal limits along with iron studies and his differential on day one showed neutrophil count of 19%, lymphocyte count of 69%. Most of the differential was within normal limits. No immature cells were seen. His retic count was 2.3%. His chemistry panel on 06/15/2025 with sodium of 144, potassium 3.8, chloride was 113, BUN 9, creatinine 0.9, ferritin was 310, total bilirubin 0.5, ALT 73, which is elevated. Alkaline phosphatase 87. His sodium was 143, potassium 3.7, chloride was 112, BUN was 10, creatinine 1. Blood sugar was 136. Total bilirubin was 0.4, AST was 39, ALT was 92, alkaline phosphatase 112, TSH was 1.49 on 06/14. IMAGING: CT of the abdomen and pelvis showed a fatty liver infiltration. No other pathology was noted and chest x-ray did not show any type of infiltrate. ASSESSMENT AND PLAN: The patient has a severe myelosuppression and he has a pancytopenia. At the moment, he is receiving platelet transfusion, but he is not having any active bleeding, so one should stay away from platelet transfusion if he is not having any type of bleeding, but his hemoglobin has come up, but one has to find out why he becomes so much anemic. He could be having a problem because of possibly gastrointestinal bleed and he may not be aware of. He does not want to admit, but his leukocyte count is also low, so that has to be worked up. I did mention to the resident that they may consider a bone marrow aspiration to see why he is having such severe suppression of the bone marrow. I agree with your present plan of treatment. I thank you, Dr. Ritchie for letting me participate in the care of this interesting patient. If you have any questions, please feel free to contact me. DT: 17:44:27 TT: 18:53:00 Ref: [id number] - TID: [id number] MTDD
[2025-06-18 07:36] VITALS: BP 116/69; PULSE 83; RESP 17; TEMP 36.5; O2SAT 99
[2025-06-18 08:00] VITALS: PULSE 69
[2025-06-18 08:30] VITALS: BP 116/69; PULSE 83
[2025-06-18] MEDS: FOLIC ACID 1 MG TABLET PO (08:30)
[2025-06-18] MEDS: THIAMINE 100 MG TABLET PO (08:30)
[2025-06-18] MEDS: PANTOPRAZOLE 40 MG TABLET PO (08:30)
[2025-06-18] MEDS: cefTRIAXone/D5w 1gm IV premix 1 GM/50 ML BAG IV (08:31)
[2025-06-18 11:59] VITALS: BP 115/73; PULSE 76; RESP 16; TEMP 36.5; O2SAT 99
--- NOTE | 2025-06-18 13:32 | ESDS_ITS ---
<Statement entered by Isis Calhoun DO - 06/19/25 08:53> I, Isis Calhoun DO, attest that I was physically present for the leblanc portions of the service and evaluated the patient with the resident and I reviewed and discussed the case with the resident and agree with the resident's findings and plans of care as documented above <Statement entered by Yoseph Saucedo MD - 06/18/25 16:39> Patient seen and examined at bedside. I discussed and supervised with the sports marketing internship physician who took care of this patient. I personally saw and examined the patient. I agree with most of the assessment and plan. Plan of care discussed with attending Dr. Calhoun. Yoseph Saucedo MD PGY-2 Planned Discharge Date 06/18/25 DS: Providers Provider Date of admission: 06/14/25 23:29 Primary care physician: Physician No Primary/Family Admitting Provider: Rahat Hussein DO Attending Provider on Admission: Isis Calhoun DO Consults: 06/14/25 22:58 Consult to Gastroenterology Stat Comment: Consulting Provider: James Kennedy 06/15/25 09:12 Consult to Hematology Routine Comment: Consulting Provider: Montserrat Briones 06/16/25 10:33 Consult to General Surgery Routine Comment: pt with cirrhosis,fth acalculus cholecystitis,eval Consulting Provider: Mohsen Mayen Attending Provider on DC: Isis Calhoun DO Discharging Provider: RESIDENT Leslie DS: Diagnosis Problem List Completed Was Problem List Reviewed/Reconciled?: Yes Hospital Course Hospital Course Hospital course: Mr. Paulie Luna is a 40-year-old male with a history of type 2 diabetes mellitus, chronic anemia, chronic alcohol use, and a longstanding cough who presented with generalized weakness, fatigue, and dizziness. He reported progressive exertional intolerance and had a near-syncopal episode two days prior to admission. Initial workup revealed severe macrocytic anemia and pancytopenia, with a hemoglobin of 2.5, MCV of 119, and WBC and platelet counts also reduced. Peripheral smear showed nucleated RBCs and immature granulocytes. Iron studies were notable for high saturation; B12, folate, and TSH were normal. Reticulocyte percentage was elevated but absolute count was low, consistent with hypoproliferative anemia. The patient was transfused 4 units of PRBCs, resulting in improved hemoglobin levels (up to 10.3 at discharge). He remained clinically stable throughout admission without bleeding, hemodynamic instability, or active infection. He was placed on neutropenic precautions due to persistent leukopenia. A broad workup was initiated to evaluate the cause of pancytopenia: * Bone marrow aspiration was completed by Interventional Radiology (Dr. Villagomez). Pathology is pending. * GI evaluation was initiated due to a positive fecal occult blood test. EGD revealed a frond-like/villous mass in the duodenal bulb, which was biopsied. There was no active bleeding or evidence of esophageal varices. Colonoscopy showed a normal colon with only hemorrhoids on perianal exam. No specimens were collected. * Heme/Onc (Dr. Briones) was consulted and agreed with the ongoing plan, emphasizing the need for marrow pathology to further characterize the pancytopenia. * CT abdomen/pelvis showed findings of cirrhosis, a CHF pattern, and acute calculous cholecystitis. General Surgery (Dr. Velazquez) deferred intervention due to cirrhosis and advised reconsultation only if esophageal varices were found (none were). * Transthoracic echocardiogram showed normal LV and RV size and function, EF 55?60%, with only trace mitral and tricuspid regurgitation. Liver function tests were elevated on admission but trended down appropriately over the course of hospitalization. Magnesium was mildly low and repleted. Blood glucose remained stable on insulin. The patient tolerated a regular diet, remained afebrile, and reported complete symptom resolution. At the time of discharge, Mr. Luna is clinically stable, symptom-free, and ready for outpatient follow-up pending final pathology results. Diagnosis During Admission #Macrocytic Anemia #Pancytopenia #Duodenal Mass #Gastritis #Hemorrhoids #Cirrhosis #Elevated Liver Enzymes #Acute Calculous Cholecystitis #Cardiomegaly #Type 2 Diabetes Mellitus #Subclinical Hypothyroidism #Chronic Cough #History Of Anemia #Magnesium Deficiency #Neutropenia #Thrombocytopenia (resolved) #Symptomatic Anemia With Transfusion (resolved) Discharge Plans -Take folic acid and thiamine once daily -Takes Lasix 20 mg once in the morning -Take Protonix 40 mg once a day daily -Use albuterol as needed for wheezing or shortness of breath -Follow-up with GI specialist, Dr. Kennedy as outpatient within a week to follow- up with your duodenal biopsy results -Follow-up with account classification clerk, Dr. Hodge as outpatient within a week to follow- up with bone marrow biopsy results -Follow-up with your PCP as outpatient within a week -In case of emergency, call 911 or come back to the ED -In case if you do not have a PCP, call [facility] [place], and schedule an appointment from Saturday to Saturday from 9 to 4 PM, , next week morning ----- Plan discussed with attending physician Dr. Calhoun and senior resident Dr. Med MD PGY-1 Internal Medicine Time Spent with Patient Time attestation: Total time spent providing and/or coordinating discharge services: Time spent: Greater than 30 minutes Exam Vital Signs Temp Pulse Resp BP Pulse Ox O2 Del Method O2 Flow Rate 97.7 F 76 16 115/73 99 Room Air 3 06/18/25 11:59 06/18/25 11:59 06/18/25 11:59 06/18/25 11:59 06/18/25 11:59 06/18/25 11:59 06/17/25 16:45 Narrative Exam General: Alert, in no acute distress, comfortably resting in bed. Skin: Warm, dry, intact; no rashes, bruising, or petechiae. HEENT: Pupils equal, round, reactive to light; conjunctival pallor present; oropharynx moist, no lesions. Neck: No JVD or lymphadenopathy. Cardiovascular: Regular rate and rhythm, no murmurs, rubs, or gallops. Respiratory: Clear to auscultation bilaterally; no wheezes, rales, or rhonchi. Abdomen: Soft, non-tender, non-distended; no hepatosplenomegaly, no rebound or guarding. Extremities: No edema; pulses 2+ in all extremities; no cyanosis or clubbing. Neurologic: Alert and oriented x3; no focal deficits; moves all extremities. Psychiatric: Normal mood and affect; cooperative. Discharge Plan Plan Patient Disposition: HOME (Self Care) Care Plan Goals: Take folic acid and thiamine once daily Takes Lasix 20 mg once in the morning Take Protonix 40 mg once a day daily Use albuterol as needed for wheezing or shortness of breath Follow-up with GI specialist, Dr. Kennedy as outpatient within a week to follow-up with your duodenal biopsy results Follow-up with account classification clerk, Dr. Hodge as outpatient within a week to follow- up with bone marrow biopsy results Follow-up with your PCP as outpatient within a week In case of emergency, call 911 or come back to the ED In case if you do not have a PCP, call [facility] [address] [place], and schedule an appointment from Saturday to Saturday from 9 to 4 PM, , next week morning [place] folic acid y thiamine carolyn vez al d?a. [place] Lasix 20 mg carolyn vez por la ma?steffen. [place] Protonix 40 mg carolyn vez al d?a. Use albuterol seg?n sea necesario para la sibilancia o la dificultad para respirar. Consulte con el gastroenter?logo Dr. Kennedy alissa paciente ambulatorio dentro de carolyn semana para revisar los resultados de alvarez biopsia duodenal. Consulte con el hemat?logo Dr. Hodge alissa paciente ambulatorio dentro de carolyn semana para revisar los resultados de alvarez biopsia de m?dula ?sea. Consulte con alvarez m?dico de cabecera alissa paciente ambulatorio dentro de carolyn semana. En laila de emergencia, llame al 911 o regrese a urgencias. Si no tiene un m?dico de cabecera, llame al [facility], [address], [address], [place], y programe carolyn charles de lunes a viernes de 9:00 am a 16:00 pm, al [phone], o el jueves por la ma?steffen de la pr?xima semana. Prescriptions/Referrals Prescriptions/Med Rec: New folic acid 1 mg Tablet 1 mg PO BID Qty: 90 0RF furosemide 20 mg Tablet 20 mg PO QAM Qty: 90 0RF thiamine mononitrate (vit B1) 100 mg Tablet 100 mg PO QDAY Qty: 90 0RF pantoprazole 40 mg Tablet,Delayed Release (Dr/Ec) 40 mg PO QDAY Qty: 90 0RF Continued albuterol sulfate 90 mcg/actuation HFA aerosol inhaler 1 puff INHALATION Q6H PRN (Reason: shortness of breath or wheezing) Patient Comments: INHALE 1 PUFF POR V A ORAL CADA CUATRO HORAS CUANDO SEA NECESARIO Referrals: Montserrat Briones MD [Physician] - James Kennedy MD [Physician] - No Primary/Family,Physician [Primary Care Provider] - Jp Mari MD [Resident] - Patient/Caregiver Discharge Instructions Discharge Activity: activity as tolerated Education Materials: Anemia Print Language: [place] Leonean Stand Alone Forms: Melly Award Info., Patient Portal Info Letter Discharge Order Discharge Orders: Discharge (Routine); Ordered 06/18/25 Ordered By: Bony Ritchie Quality Discharge Quality Measures VTE prophylaxis
[2025-06-21 08:07] LABS: Folate, RBC* 998 ng/mL RBC (>280)
== END 2025-06-18 11:47 | disposition home or self-care (01) | DRG 241 ==
LOC: SERX 06-15 00:23 → SERHOLD 06-15 00:43 → S2NX 06-15 01:29 → S3NX 06-16 16:15
PROVIDERS: Physician Assistant; Radiology Diagnostic Radiology; Specialist; Student in an Organized Health Care Education/Training Program; Admitting Provider Student in an Organized Health Care Education/Training Program; Emergency Provider Emergency Medicine; Visit Provider Internal Medicine
PROC: (CPT 43239; principal; 2025-06-16 16:45)
PROC: 0DJD8ZZ Inspection of Lower Intestinal Tract, Via Natural or Artificial Opening Endoscopic (ICD-10-PCS; CPT 45378; principal; 2025-06-17 16:00)
DX: K29.70 Gastritis, unspecified, without bleeding (principal); K80.00 Calculus of gallbladder with acute cholecystitis without obstruction; D61.818 Other pancytopenia; E83.42 Hypomagnesemia; Z79.4 Long term (current) use of insulin; E11.65 Type 2 diabetes mellitus with hyperglycemia; D53.9 Nutritional anemia, unspecified; E03.8 Other specified hypothyroidism; E61.2 Magnesium deficiency; I50.9 Heart failure, unspecified; K64.9 Unspecified hemorrhoids; K74.60 Unspecified cirrhosis of liver; Z79.899 Other long term (current) drug therapy; D75.89 Other specified diseases of blood and blood-forming organs; K76.0 Fatty (change of) liver, not elsewhere classified
CPT/HCPCS: 36415; 71045; 74177; 76700; 77012; 80053; 80061; 80074; 80307; 81001; 82010; 82150; 82607; 82728; 82746; 82747; 83036; 83540; 83550; 83690; 83735; 83880; 84100; 84439; 84443; 84484; 85025; 85046; 85610; 85730; 86850; 86900; 86901; 86923; 86927; 86965; 87040; 93005; 93225; 93306; 96361; 96374; A4649; J0696; J1200; J1815; J1938; J2250; J2405; J3010; J3420; J3475; J3490; J7030; P9016; P9035; P9060; Q9967; A9270

== ENCOUNTER 2025-09-21 20:05 | Emergency (ER) | payer MEDICAID, SELFPAY ==
[2025-09-21 20:37] VITALS: BP 104/61; PULSE 96; RESP 16; TEMP 36.7; O2SAT 99
--- NOTE | 2025-09-21 20:41 | XR_ITS ---
Examination: Knee, right, 3 views Technique: Knee AP, lateral, oblique 3 views Date and time of exam: September 21, 2025, 210 hours INDICATIONS: Worsening knee pain 10 days. FINDINGS: Large knee effusion No fracture Recommend axial view of the patella to confirm normal position of the patella IMPRESSION: Large knee effusion, septic arthritis would be included in the differential This knee is amenable to fluoroscopically guided aspiration for culture and sensitivity as clinically warranted
--- NOTE | 2025-09-21 20:42 | PD.EDRME ---
Rapid Medical Screening Exam [facility] Arrival date/time: 09/21/25 20:05 40M with history of recent diagnosis of myelodysplastic syndrome, alcohol/drug abuse, and DM presents to ED with 1.5 week of worsening R knee pain and swelling. Patient denies fall/trauma and has not had surgery there before. Chief Complaint: Extremity Problem,Nontraumatic Vital signs: Vital Signs Temperature 98.1 F 09/21/25 20:37 Pulse Rate 96 09/21/25 20:37 Respiratory Rate 16 09/21/25 20:37 Blood Pressure 104/61 09/21/25 20:37 Pulse Oximetry (%) 99 09/21/25 20:37 Oxygen Delivery Method Room Air 09/21/25 20:37
[2025-09-21] MEDS: HYDROcodone/APAP 5/325 TABLET 1 TAB PO (20:55)
[2025-09-21 21:12] LABS: Basophils # (Auto) 0.0 Thou/mm3 (0.0-0.2); Basophils % (Auto) 0 % (0-2.5); Eosinophils # (Auto) 0.0 Thou/mm3 (0.0-0.5); Eosinophils % (Auto) 0 % (0-10); Immature Granulocytes Auto 0.03 Thou/mm3 (0.00-0.00); Lymphocytes # (Auto) 1.8 Thou/mm3 (1.0-4.8); Lymphocytes % (Auto) 72 % (10-50); Mean Corpuscular HGB Conc 33.7 g/dl (31.0-37.0); Mean Corpuscular Hemoglobin 30.3 pg (25.0-35.0); Mean Corpuscular Volume 90 fL (80-100); Monocytes # (Auto) 0.3 Thou/mm3 (0.0-0.8); Monocytes % (Auto) 11 % (0-12); Neutrophils # (Auto) 0.4 Thou/mm3 (1.8-7.7); Neutrophils % (Auto) 16 % (37-80); Nucleated Red Blood Cell # 0.05 Thou/mm3 (0.00-0.00); Nucleated Red Blood Cell % 2 /100 WBC (0); Platelet Count 185 Thou/mm3 (140-440); RDW Standard Deviation 46.5 fL (35.1-43.9); Red Blood Count 2.08 Miln/mm3 (4.50-5.90); White Blood Count 2.5 Thou/mm3 (3.8-10.6)
[2025-09-21 21:28] LABS: Hematocrit 18.7 % (41.0-53.0)
[2025-09-21 21:29] LABS: Alanine Aminotransferase 49 U/L (10-49); Albumin, Serum 4.1 gm/dL (3.5-5.0); Albumin/Globulin Ratio 1.7 (1.2-2.2); Alkaline Phosphatase 78 U/L (46-116); Anion Gap 8 (7-16); Aspartate Amino Transferase 41 U/L (0-34); BUN/Creatinine Ratio 12 Ratio (12-20); Bilirubin,Total 0.3 mg/dL (0.3-1.2); Blood Urea Nitrogen 12 mg/dL (9-23); C-Reactive Protein 6.3 mg/dL (0.0-0.9); Calcium 8.4 mg/dL (8.3-10.6); Calcium (Corrected) 8.4 mg/dL (8.5-10.1); Carbon Dioxide 25.1 mMol/L (20.0-31.0); Chloride 105 mMol/L (98-107); Creatinine (Component) 1.0 mg/dL (0.6-1.3); Globulin 2.4 gm/dL (2.3-3.5); Glucose 201 mg/dL (74-106); Osmolality,Calculated 281 (275-295); Potassium 3.8 mMol/L (3.4-5.1); Sodium 138 mMol/L (136-145); Total Protein 6.5 gm/dL (5.7-8.2); Uric Acid 3.4 mg/dL (3.7-9.2); eGFR > 60 See Note
[2025-09-21 21:30] LABS: Sed Rate (ESR) 67 mm/hr (0-15)
[2025-09-21 21:44] LABS: Hemoglobin 6.3 g/dL (13.5-16.0)
[2025-09-21 23:45] VITALS: BP 113/62; PULSE 85; RESP 18; TEMP 37; O2SAT 99
[2025-09-22] VITALS (10 sets, daily range): BP systolic 97–113; BP diastolic 60–76; PULSE 62–74; RESP 15–19; TEMP 36.4–37; O2SAT 100
--- NOTE | 2025-09-22 00:38 | EDNOTE_ITS ---
ED Extremity Problem RME/HPI General Chief complaint: Extremity Problem,Nontraumatic Stated complaint: RIGHT KNEE SWELLING Arrival date/time: 09/21/25 20:05 RME / HPI RME / HPI Narrative: 09/21/25 20:05 40M with history of recent diagnosis of myelodysplastic syndrome, alcohol/drug abuse, and DM presents to ED with 1.5 week of worsening R knee pain and swelling. Patient denies fall/trauma and has not had surgery there before. Dr. Mast?s Main ED Evaluation: 40yo male with a history of myelodysplastic syndrome, DM presents to the ED for a chief complaint of worsening right knee pain and swelling x 1 week. Patient was concerned when his pain and swelling continued to progressively get worse, so he came in for evaluation. Patient denies any fever, chills, or any other associated symptoms. Denies any recent falls or trauma to the area. Denies any history of similar symptoms. NKA. Related Data Home Medications ?Medication ?Instructions ?Recorded ?Confirmed albuterol sulfate 90 mcg/actuation 1 puff inhalation Q 6H PRN 06/15/25 06/15/25 aerosol inhaler shortness of breath or wheez ing Previous Rx's ?Medication ?Instructions ?Recorded folic acid 1 mg tablet 1 mg PO BID #90 tabs 5 furosemide 20 mg tablet 20 mg PO QAM #90 tabs pantoprazole 40 mg tablet,delayed 40 mg PO QDAY #90 ta bs 06/18/25 release thiamine mononitrate (vit B1) 100 100 mg PO QDAY #90 t abs 06/18/25 mg tablet Allergies Allergy/AdvReac Type Severity Reaction Status Date / Time No Known Allergies Allergy Verified 08/25/25 07:51 Review of Systems Review of Systems Systems Reviewed: All systems reviewed, normal except as documented Past Medical History Past Medical History NEUROLOGIC: Negative Neurological Disorders, Cerebrovascular Accident, Transient Ischemic Attacks (TIA), Dementia, Alzheimer's Disease, Parkinson's Disease, Brain Tumor, Meningitis, Seizures, Epilepsy, Multiple Sclerosis, Cerebral Palsy, Amyotrophic Lateral Sclerosis (ALS/Betsy Gehrig's), Guillain-[place] Syndrome, Spina Bifida, Paralysis, Peripheral Neuropathy, Cabral's Palsy, Subdural Hematoma, Migraine, Head Trauma, Spinal Cord Injury or Traumatic Brain Injury CARDIAC: Negative Cardiac Disorders, Myocardial Infarction, Cardiac Arrhythmia, Atrial Fibrillation, Angina, Heart Murmur, Coronary Artery Disease, Atherosclerotic Heart Disease, Peripheral Vascular Disease, Hypercholesterolemia, Aneurysm, Congestive Heart Failure, Congenital Heart Disease, Valvular Heart Disease, Rheumatic Fever, Cardiomyopathy, Edema, Pericar ditis, Cellulitis, Deep Vein Thrombosis, Hypertension, Hypotension or Varicose Veins RESPIRATORY: Positive Asthma; Negative Chronic Obstructive Pulmonary Disease (COPD), Bronchitis, Emphysema, Pneumonia, Pulmonary Fibrosis, Cystic Fibrosis, Tuberculosis, Pulmonary Embolism, Pulmonary Edema or Sleep Apnea GASTROINTESTINAL: Negative Gastrointestinal Disorders, Hepatitis, Cirrhosis, Pancreatitis, Celiac Disease, Gall Bladder Disease, Gastrointestinal Bleed, Esophageal Varices, Holcomb's Esophagus, Colitis, Ulcerative Colitis, Diverticulitis, Diverticulosis, Ulcer, Colorectal Cancer, Irritable Bowel, Crohn's Disease, Obstructive Bowel, Hiatal Hernia, Hemorrhoids, Gastroesophageal Reflux Disease or Obesity GENITOURINARY: Negative Genitourinary Disorders, Renal Disease, Kidney Stones, Polycystic Kidney Disease, Neurogenic Bladder, Inguinal Hernia, Dialysis, Prostate Cancer or Benign Prostatic Hyperplasia REPRODUCTIVE: Negative Breast Cancer, Genital Herpes, Gonorrhea, Syphilis or Testicular Cancer MUSCULOSKELETAL: Negative Musculoskeletal Disorders, Muscular Dystrophy, Myasthenia Gravis, Marfan's Syndrome, Bone Cancer, Arthritis, Rheumatoid Arthritis, Osteoporosis, Degenerative Disk Disease, Gout, Scoliosis, Carpal Tunnel Syndrome, Fibromyalgia, Fractures, Degenerative Joint Disease, Osteomyelitis or Poliovirus ENT: Negative Cataracts, Glaucoma, Blind, Retinal Detachment, Macular De generation, Ear Infection, Deafness, Head Trauma or Eye Prosthesis ENDOCRINE: Positive Endocrine Disorders and Diabetes Mellitus Type 2; Negative Diabetes Mellitus Type 1, Hypoglycemia, [place]'s Syndrome, [place]'s Disease, Hyperthyroidism, Hypothyroidism, Parathyroid Disease, Pituitary Disease, Systemic Lupus Erythematosus, Syndrome of Inappropriate Antidiuretic Hormone (SIADH), Adrenal Disease or Graves' Disease HEMATOLOGIC: Positive Anemia; Negative Blood Disorders, Leukemia, Hemophilia, Thalassemia, Sickle Cell Disease or Clotting Problems PSYCHO/SOCIAL: Negative Psychiatric Problems, Schizophrenia, Recreational Drug Use, Bipolar Disorder, Depression, Anxiety, Behavior Problems, Self-Mutilation, Attention Deficit Disorder, Attention Deficit Hyperactivity Disorder, Depression, Post Traumatic Stress Disorder or Eating Disorder OTHER HISTORY: Positive Blood Transfusions; Negative Hospitalization, Autoimmune Disease, Down Syndrome, Autism, Developmental Delay, Shingles, Falls, Blood Transfusion Reaction, Anesthesia Reactions, Organ Transplant, Chemotherapy, Radiation Therapy, Hyperbaric Therapy, MRSA, VRSA, Vancomycin-Resistant Enterococci, Human Immunodeficiency Virus (HIV), Chicken Pox, Measles, Mumps, Rubella (Kittitian Measles), Pertussis, Clostridium Difficile, Cancer, Breast Cancer, Colorectal Cancer, Lung Cancer, Prostate Cancer or Testicular Cancer Family History FAMILY HISTORY: Negative Family Psychiatric Problems, Family Respiratory Disorders, Family Cardiac Disorders, Family Gastrointestinal Problems, Family Cancer, Family Surgery or Family Anesthesia Reaction Surgical History SURGICAL: Negative Cardiac Surgery, Open Heart Surgery, Coronary Artery Bypass Graft, Valve Replacement, Vascular Surgery, Coronary Stent, Cardiac Catheterization, Pacemaker, Angiogram, Auto Implanted Cardiovert Defib, Carotid Endarterectomy, Endocrine Surgery, Thyroidectomy, Ear Surgery, Tympanostomy Tube, Eye Surgery, Nose Surgery, Oral Surgery, Tonsillectomy, Adenoidectomy, Cochlear Implant, Corneal Transplant, Throat Surgery, Abdominal Surgery, Tracheostomy, Gastric Bypass Surgery, Gastrostomy, Bowel Surgery, Nephrectomy, Transurethral Resection, Joint Replacement, Amputation, Open Reduction Internal Fixation, Arthroscopy, Neurologic Surgery, Brain Shunt, Mastectomy, Vasectomy or Organ Transplant Social History SMOKING STATUS: Never smoker SECOND HAND EXPOSURE: No ED Exam Narrative Physical exam: Generally patient is alert in no obvious distress, heart regular rate and rhythm, lungs clear to auscultation equal bilaterally, abdomen soft bowel sounds present nondistended nontender, extremities show swelling mostly above the right knee with minimal tenderness to flexion and extension. No overlying erythema. Neurologic exam Mindy Coma Scale is 15 without focal neurologic deficit Course Quality Measures none Orders Category Date Time Status Insert IV NOW Care 09/21/25 21:47 Active XR knee RT 3V Stat Exams 09/21/25 20:41 Completed Blood Culture (Lab) Stat Lab 09/21/25 22:00 Received Body Fld Culture & Gram Stain Routine Lab 09/22/25 01:24 Received CBC Stat Lab 09/21/25 20:55 Completed CMP [Comprehensive Metabolic Panel] Stat Lab 09/21/25 20:55 Completed CRP [C-Reactive Protein] Stat Lab 09/21/25 20:55 Completed ESR [Sed Rate (ESR)] Stat Lab 09/21/25 20:55 Completed Glucose,Synovial Fluid* Stat Lab 09/22/25 01:24 [address] Review Blood Smear Stat Lab 09/21/25 20:55 Completed Synovial Fluid, Cell Cnt/Diff Stat Lab 09/22/25 01:24 Completed Synovial Fluid, Crystals* Stat Lab 09/22/25 01:24 Received Type and Screen Stat Lab 09/21/25 22:06 Results Uric Acid Stat Lab 09/21/25 20:55 Completed rbc [Red Blood Cells] Stat Lab 09/21/25 22:06 Results HYDROcodone*/APAP 5/325 [[place] 5/325] Med 09/21/25 20:51 Discontinued 1 tab PO X1 ONE Lidocaine 1% 20 ml [Xylocaine 1% 20 ML] Med 09/22/25 00:47 Discontinued 10 ml INFL X1 ONE Vital Signs Vital signs: Vital Signs Temperature 98.1 F 09/21/25 20:37 Pulse Rate 96 09/21/25 20:37 Respiratory Rate 16 09/21/25 20:37 Blood Pressure 104/61 09/21/25 20:37 Pulse Oximetry (%) 99 09/21/25 20:37 Oxygen Delivery Method Room Air 09/21/25 20:37 Extremity Problem MDM Narrative MDM Narrative:: Scribe Attestation: 09/22/25 Mimi Hennessy am scribing for and in the presence of Dr. Mast. Patient has a history of myelodysplastic syndrome and has been anemic in the past. Hemoglobin is 6.3. Patient was typed and crossed and will be transfused with 2 units of packed RBCs. Procedure note: After consent was obtained a right knee arthrocentesis was performed after the skin was cleansed using Betadine to the lateral aspect of the right patella. It was then anesthetized 1% lidocaine without epinephrine. Using an 18-gauge needle the joint space was entered and approximately 200 cc of cloudy yellow fluid was removed from the right knee joint space. This was sent to lab for analysis and the WBC count was 7206. Patient does not have fever or leukocytosis. He is actually neutropenic due to his myelodysplastic syndrome. Tristan wrap was applied to the right knee. He denies having any trauma to the right knee. He is to use the Tristan wrap for comfort. Follow-up with his doctor. Return to ER as needed or if condition worsens. Patient data External records reviewed:: [facility] previous records (Per chart review, patient was admitted here on 08/25/25 for leukopenia.) Clinical information provided by:: patient Social determinants that could affect healthcare access:: none Patient has the following chronic illnesses:: myelodysplastic syndrome, DM How is presenting disease/condition affected by chronic disease/condition?: uneffected by Evaluation data The following diagnostics were reviewed and interpreted by me:: lab results and radiology exam(s) Lab and/or radiology exams considered but not ordered:: none Interpretation Summary: [facility] Report Signed Patient: WALTER BURGOS Record#: [id number] Birthdate: 1985 Age/Sex: 40 / M [facility] Att[facility] Dr: Ordering Physician: Sunday Bellamy PA-C Date of Service: 09/21/25 Procedure(s): XR knee RT 3V Accession Number(s): [id number] cc: Santhosh Telles MD; Darrel Ochoa MD; Sunday Bellamy PA-C~ Examination: Knee, right, 3 views Technique: Knee AP, lateral, oblique 3 views Date and time of exam: September 21, 2025, 210 hours INDICATIONS: Worsening knee pain 10 days. FINDINGS: Large knee effusion No fracture Recommend axial view of the patella to confirm normal position of the patella IMPRESSION: Large knee effusion, septic arthritis would be included in the differential This knee is amenable to fluoroscopically guided aspiration for culture and sensitivity as clinically warranted Dictated By: Darrel Ochoa MD Signed By: <Electronically signed by Darrel Ochoa MD in [place]> 09/21/252120 Medications / Prescriptions Medications or Prescriptions considered but not ordered:: none Medication administrations:: Medication Administration History Discontinued Medications Hydrocodone Bitart/Acetaminophen (Hydrocodone/Apap 5/325 Tablet) 1 tab PO X1 ONE Stop: 09/21/25 20:52 Last Admin: 09/21/25 20:55 Dose: 1 tab Documented By: SM Lidocaine HCl (Lidocaine Hcl 1% 20 Ml Vial) 10 ml INFL X1 ONE Stop: 09/22/25 00:48 see above Consultations Consultation(s) initiated? (list below): No Diagnosis Extremity Problem Differential Diagnosis: other (See MDM) Most likely diagnosis given after review of the tests above:: see clinical impression below Admission Indicated Admission indicated?: not indicated Admission Request Was there a request for admission?: No Disposition Plan Disposition Plan: Discharge Discharge Attestation Discharge Attestation: The patient and all family members were given an opportunity to ask questions and understood the discharge instructions. Discharge instructions specifically effects, indications for sooner follow up or return to the emergency department, and the expected course of current diagnosis. Patient condition: Stable Discharge Plan Plan Patient Disposition: HOME (Self Care) Prescriptions/Referrals Prescriptions/Med Rec: No Action albuterol sulfate 90 mcg/actuation HFA aerosol inhaler 1 puff INHALATION Q6H PRN (Reason: shortness of breath or wheezing) Patient Comments: INHALE 1 PUFF POR V A ORAL CADA CUATRO HORAS CUANDO SEA NECESARIO folic acid 1 mg Tablet 1 mg PO BID Qty: 90 0RF furosemide 20 mg Tablet 20 mg PO QAM Qty: 90 0RF thiamine mononitrate (vit B1) 100 mg Tablet 100 mg PO QDAY Qty: 90 0RF pantoprazole 40 mg Tablet,Delayed Release (Dr/Ec) 40 mg PO QDAY Qty: 90 0RF Referrals: Santhosh Telles MD [Primary Care Provider, Family Practice] - In 1 week Problem List Clinical Impression: Anemia, Effusion of right knee Patient/Caregiver Discharge Instructions Education Materials: ED Anemia Type Not Specified, ED Knee Effusion Additional Instructions: Use the Tristan wrap to the right knee for comfort. Follow-up with your doctor. Return to ER as needed or if condition worsens. Print Language: American Stand Alone Forms: [facility] Award Info., Patient Portal Info Letter
[2025-09-22] MEDS: LIDOCAINE HCL 1% 20 ML VIAL 10 ML INFL (01:20)
[2025-09-22 01:41] LABS: Path Review Blood Smear Sent to Pathologist
[2025-09-22 02:52] LABS: Source,Synovial Fluid Knee; Synovial Fluid Appearance Hazy; Synovial Fluid Color Yellow
[2025-09-22 03:12] LABS: Synovial Fluid Mononuclear 35 %; Synovial Fluid Polynuclear 65 %; Synovial Fluid RBC 1000 /cmm; Synovial Fluid WBC 7206 /cmm
--- NOTE | 2025-09-22 03:25 | PD.EDADDENDU ---
Emergency Room Addendum Addendum Narrative: Critical care time spent in this patient excluding other billable procedures was 35 minutes.
[2025-09-22 07:43] LABS: Misc Send Out* See Sep Rpt
[2025-09-22] MEDS: HYDROcodone/APAP 5/325 TABLET 1 TAB PO (07:57)
[2025-09-27 06:41] LABS: Glucose,Synovial Fluid* 99 mg/dL
== END 2025-09-22 09:08 | disposition home or self-care (01) ==
PROVIDERS: Physician Assistant; Emergency Provider Emergency Medicine; PCP Family Medicine
DX: D46.9 Myelodysplastic syndrome, unspecified (principal); M25.461 Effusion, right knee
CPT/HCPCS: 36415; 73562; 80053; 82945; 84550; 84560; 85025; 85652; 86140; 86850; 86900; 86901; 86923; 87040; 87070; 87077; 87186; 87205; 89051; 99282; J3490; P9016; A9270

== ENCOUNTER 2025-10-21 13:20 | Outpatient (AMB) | payer MEDICAID, SELFPAY ==
[2025-10-21 13:40] VITALS: BP 97/60; PULSE 79; RESP 18; TEMP 36.6; O2SAT 97; BMI 21.0
--- NOTE | 2025-10-21 13:40 | PD.ORTHCLVIS ---
Vital signs 10/21/25 13:40 Height 1.52 m Height Method Measured Weight 48.591 kg Weight Measurement Method Standing Scale BMI 21.0 BP 97/60 Blood Pressure Source Automatic Cuff Blood Pressure Location Right Upper Arm Position Sitting Respiration 18 Pulse 79 Pulse Source Monitor Temp 97.8 F Temp Source Temporal Artery Scan Pulse Oximetry (%) 97 Oxygen Delivery Method Room Air Med/Allergies Allergies & Medications Allergies No Known Allergies Allergy (Verified 10/21/25 13:42) Medication Reconciliation albuterol sulfate 90 mcg/actuation aerosol inhaler 1 puff inhalation Q6H PRN shortness of breath or wheezing 06/15/25 [History Confirmed 10/21/25] folic acid 1 mg tablet 1 mg PO BID #90 tabs 06/18/25 [Rx Confirmed 10/21/25] furosemide 20 mg tablet 20 mg PO QAM #90 tabs 06/18/25 [Rx Confirmed 10/21/25] pantoprazole 40 mg tablet,delayed release 40 mg PO QDAY #90 tabs 06/18/25 [Rx Confirmed 10/21/25] thiamine mononitrate (vit B1) 100 mg tablet 100 mg PO QDAY #90 tabs 06/18/25 [Rx Confirmed 10/21/25] naproxen 500 mg tablet 500 mg PO BID #60 tabs 10/21/25 [Rx] Exam Exam Patient is in no acute distress and is cooperative with the examination today. Breathing is nonlabored. Patient has a normal mood and affect. The patient has a gait that is nonantalgic Bilateral extremities were evaluated and demonstrates sensation intact to light touch. Palpable pedal pulses are present. No significant edema is present. Bilateral hips were examined. The patient has no pain with log roll of the hips. Internal rotation to 30 degrees and external rotation to 30 degrees is painless. Negative FADIR. Left knee was examined today. The left knee is in reasonable alignment. Range of motion from 0-120 degrees. Knee is stable to varus and valgus as well as AP translation with <5mm. Patient has a negative McMurrays. There is no pain with patellofemoral compression and no crepitus noted. The knee is nontender to palpation. The right knee was also examined. The right knee is in neutral alignment. Range of motion from 0-120 degrees. Knee is stable to varus and valgus as well as AP translation with <5mm. Patient has a negative McMurrays. There is no pain with patellofemoral compression and no crepitus noted. The knee is tender to palpation diffusely. RESULTS Labs - Cell count: 09/2025, [id number] with a PMN count of 65% - Blood culture: 09/2025, Positive for Salmonella - Synovial aspirations: 09/2025, No positive growth Assessment and Plan Problem List (1) Myelodysplasia (myelodysplastic syndrome): Status: Acute (2) Crystalline arthritis: Status: Acute Plan: ASSESSMENT AND PLAN 1. Right knee pain: Right knee pain is likely due to recurrent flares causing knee swelling. Synovial fluid analysis did not indicate an infection, and the presence of crystals suggests a diagnosis of gout or pseudogout. It is recommended to inform the primary care physician about the diagnosis of crystal and joint disease. A cortisone injection is advised for the affected knee today. Medications will be sent to manage the condition. The risks and benefits of the cortisone injection were discussed, including potential relief from pain and swelling versus possible side effects such as infection or increased pain. Lifestyle modifications such as avoiding foods high in purines and staying hydrated were recommended to help manage gout symptoms. 2. Myelodysplastic syndrome: Myelodysplastic syndrome may contribute to the symptoms experienced. No specific treatment plan was discussed during the visit for this condition. Office Procedures GNS Level of Care Nursing/Assessment Patient Status: Initial/New Patient Nursing Assessment/Reassesment: Medication Reconciliation, Update PMH in EMR and Vital Signs Coordination of Care: Complex Care and Chronic Disease 1-5, Education Complex Pt/Fam, Consent,records obtained, informed consent, Results/Orders obtained and Staff clarify orders Special Needs: Language special needs New Patient Charge New Patient Point Assignment: 1094 New Patient Point Charge: BILLING ADMINISTRATOR Level 3 ([id number]) MA Intake Visit Data Collection New Patient or Established: New Patient (never been to [facility]) Reason for Visit:: RT KNEE ARTHRITIS Seen by Clinical Staff ONLY (RN/MA): No Shuttle Car Operator Required: Yes PCP or OBGYN visit in last 3 months: Yes Hx Now: No Do You Feel Safe at Home: Yes Authorities Contacted: N/A Questionairres Past Medical History Past Medical History Have you ever been diagnosed with any of the following: Neurological Problems Cerebrovascular Accident (CVA): No Transient Ischemic Attacks (TIA): No Dementia: No Alzheimer's Disease: No Parkinson's Disease: No Brain Tumor: No Meningitis: No Seizures: No Epilepsy: No Multiple Sclerosis: No Cerebral Palsy: No Amyotrophic Lateral Sclerosis (ALS/Betsy Gehrig's): No Guillain-Linden Syndrome: No Spina Bifida: No Paralysis: No Peripheral Neuropathy: No Cabral's Palsy: No Subdural Hematoma: No Migraine: No Head Trauma: No Spinal Cord Injury: No Traumatic Brain Injury: No Cardiology Problems Myocardial Infarction: No Cardiac Arrhythmia: No Atrial Fibrillation: No Angina: No Heart Murmur: No Coronary Artery Disease: No Atherosclerotic Heart Disease: No Peripheral Vascular Disease: No Hypercholesterolemia: No Aneurysm: No Congestive Heart Failure: No Congenital Heart Disease: No Valvular Heart Disease: No Rheumatic Fever: No Cardiomyopathy: No Edema: No Pericarditis: No Cellulitis: No Deep Vein Thrombosis: No Hypertension: No Hypotension: No Varicose Veins: No Respiratory Problems Chronic Obstructive Pulmonary Disease (COPD): No Asthma: Yes Bronchitis: No Emphysema: No Pneumonia: No Pulmonary Fibrosis: No Tuberculosis: No Pulmonary Embolism: No Pulmonary Edema: No Sleep Apnea: No Stomache/Intestinal Problems Hepatitis: No Cirrhosis: No Pancreatitis: No Celiac Disease: No Gall Bladder Disease: No Gastrointestinal Bleed: No Esophageal Varices: No Holcomb's Esophagus: No Colitis: No Ulcerative Colitis: No Diverticulitis: No Diverticulosis: No Ulcer: No Colorectal Cancer: No Irritable Bowel: No Crohn's Disease: No Obstructive Bowel: No Hiatal Hernia: No Hemorrhoids: No Gastroesophageal Reflux Disease: No Obesity: No Genital/Urinary Problems Renal Disease: No Kidney Stones: No Polycystic Kidney Disease: No Neurogenic Bladder: No Inguinal Hernia: No Dialysis: No Prostate Cancer: No Benign Prostatic Hyperplasia: No Reproductive Problems Breast Cancer: No Genital Herpes: No Gonorrhea: No Syphilis: No Testicular Cancer: No Musculoskeletal Problems Muscular Dystrophy: No Myasthenia Gravis: No Marfan's Syndrome: No Bone Cancer: No Arthritis: No Rheumatoid Arthritis: No Osteoporosis: No Degenerative Disk Disease: No Gout: No Scoliosis: No Carpal Tunnel Syndrome: No Fibromyalgia: No Fractures: No Degenerative Joint Disease: No Osteomyelitis: No Poliovirus: No Head,Eye,Nose,Throat Problems Cataracts: No Glaucoma: No Blind: No Retinal Detachment: No Macular Degeneration: No Chronic Ear Infections: No Deafness: No Eye Prosthesis: No Endocrine Problems Diabetes Mellitus Type 1: No Diabetes Mellitus Type 2: Yes Hypoglycemia: No Hoopa's Syndrome: No Cumberland's Disease: No Hyperthyroidism: No Hypothyroidism: No Parathyroid Disease: No Pituitary Disease: No Systemic Lupus Erythematosus: No Syndrome of Inappropriate Antidiuretic Hormone: No Adrenal Disease: No Graves' Disease: No Blood Problems Anemia: Yes Leukemia: No Hemophilia: No Thalassemia: No Sickle Cell Disease: No Clotting Problems: No Psychologic Problems Schizophrenia: No Recreational Drug Use: No Bipolar Disorder: No Depression: No Anxiety: No Behavior Problems: No Self-Mutilation: No Attention Deficit Disorder: No Attention Deficit Hyperactivity Disorder: No Depression: No Post Traumatic Stress Disorder: No Eating Disorder: No Other Problems Hospitalization: No Down Syndrome: No Autism: No Developmental Delay: No Shingles: No Falls: No Blood Transfusions: Yes Blood Transfusion Reaction: No Anesthesia Reactions: No Organ Transplant: No Chemotherapy: No Radiation Therapy: No Hyperbaric Therapy: No MRSA: No VRSA: No Vancomycin-Resistant Enterococci: No Human Immunodeficiency Virus (HIV): No Chicken Pox: No Measles: No Mumps: No Rubella (Filipino Measles): No Pertussis: No Clostridium Difficile: No Cancer: No Lung Cancer: No Surgical History Carotid Endarterectomy: No Coronary Artery Bypass Graft: No Valve Replacement: No Pacemaker: No Thyroidectomy: No Subjective Visit Visit for: new patient and knee Immunization / Flu Flu Vaccine in the Last 12 Months: No Flu Vaccine Exclusion Criteria: Refused by Patient and Already Received History of Present Illness Chief complaint: RT KNEE ARTHRITIS HISTORY OF PRESENT ILLNESS IMichael, have obtained verbal consent from the patient, to be recorded during this encounter which may include, but not limited to, medical history, examination, treatment plans, and relevant health information.? Patient was informed that recording will be read and reviewed by myself before inclusion in the medical chart. The patient is a 40-year-old male with myelodysplastic syndrome and knee pain. He is accompanied by an professional organizer. He went to the emergency room in September where they performed a knee aspiration to rule out infection. His cell count was 7206 with a PMN count of 65%. Multiple blood cultures were taken, and one blood culture was positive for Salmonella. None of the synovial aspirations demonstrated any positive growth. He reports experiencing pain in his right knee, which has been progressively worsening over the years. He has been under the care of an community living specialist in [place], who administered an injection into the lateral aspect of his knee. He has experienced recurrent episodes of knee swelling, with 4 to 5 instances occurring within the past year. He has been diagnosed with gout or pseudogout, characterized by the presence of crystals in his joints. He has been prescribed naproxen for pain management, but it has not provided significant relief. He has a history of myelodysplastic syndrome, a type of cancer similar to leukemia, which has resulted in a low white blood cell count. Personal History Red flag PMH: none BMI Counceling provided: Yes Pain Pain level (0-10): 5 Pain location: outside (lateral), anterior and posterior Associated signs & symptoms: none Ambulatory data Ambulatory device: none Treatments Improvement with previous injections: No Improvement with PT: No Improvement with NSAIDS: no Review of Systems Review of Systems: All systems negative unless otherwise noted in HPI.
== END 2025-10-21 13:55 | disposition home or self-care (01) ==
LOC: HODSRG 13:20
PROVIDERS: PCP Internal Medicine; Referring Provider Internal Medicine; Supervising Provider Orthopaedic Surgery Adult Reconstructive Orthopaedic Surgery; Visit Provider Orthopaedic Surgery Adult Reconstructive Orthopaedic Surgery
DX: M25.561 Pain in right knee (principal); D46.9 Myelodysplastic syndrome, unspecified
CPT/HCPCS: 99203; G0463

== ENCOUNTER 2025-10-22 12:03 | Emergency (ER) | payer MEDICAID, SELFPAY ==
[2025-10-22 12:15] VITALS: BP 117/74; PULSE 112; RESP 18; TEMP 36.9; O2SAT 97; BMI 21.1
--- NOTE | 2025-10-22 12:18 | XR_ITS ---
Examination: Knee, right, 3 views Technique: Knee AP, lateral, oblique 3 views Date and time of exam: October 22, 2025, 1233 hours INDICATION: Right knee pain and swelling beginning 2 months ago FINDINGS: Moderate tricompartment osteoarthritis Large knee effusion No fracture IMPRESSION: Moderate right knee tricompartment osteoarthritis with large right knee effusion
--- NOTE | 2025-10-22 12:19 | PD.EDRME ---
Rapid Medical Screening Exam [facility] Arrival date/time: 10/22/25 12:03 40-year-old male with a history of arthritis presents to the emergency room with a chief complaint of right knee swelling and tenderness x 1 week. Patient was also told to come to the emergency room due to a low hemoglobin level. I have greeted and performed a focused initial assessment of this patient. A comprehensive ED assessment and evaluation of the patient, analysis of all test results, and completion of the medical decision making process will be conducted by additional ED providers. Chief Complaint: Recheck/Abnormal Lab/Rx Vital signs: Vital Signs Temperature 98.4 F 10/22/25 12:15 Pulse Rate 126 H 10/22/25 12:15 Respiratory Rate 18 10/22/25 12:15 Blood Pressure 117/74 10/22/25 12:15 Pulse Oximetry (%) 97 10/22/25 12:15 Oxygen Delivery Method Room Air 10/22/25 12:15 Vital signs reviewed by provider: Yes Exam: Swelling, tenderness to the right knee Strong and regular rhythm S1 and S2 noted Clear bilateral lung sounds Clinical Impression: Septic arthritis/arthritis/knee effusion/anemia
[2025-10-22 13:16] LABS: Collection Type, Urine Clean Catch
[2025-10-22 13:17] LABS: Lactate (Lactic Acid) 1.1 mMol/L (0.4-2.0)
[2025-10-22 13:21] LABS: Basophils # (Auto) 0.0 Thou/mm3 (0.0-0.2); Basophils % (Auto) 0 % (0-2.5); Eosinophils # (Auto) 0.0 Thou/mm3 (0.0-0.5); Eosinophils % (Auto) 0 % (0-10); Hematocrit 22.4 % (41.0-53.0); Immature Granulocytes Auto 0.04 Thou/mm3 (0.00-0.00); Lymphocytes # (Auto) 1.2 Thou/mm3 (1.0-4.8); Lymphocytes % (Auto) 59 % (10-50); Mean Corpuscular HGB Conc 33.0 g/dl (31.0-37.0); Mean Corpuscular Hemoglobin 32.0 pg (25.0-35.0); Mean Corpuscular Volume 97 fL (80-100); Monocytes # (Auto) 0.3 Thou/mm3 (0.0-0.8); Monocytes % (Auto) 16 % (0-12); Neutrophils # (Auto) 0.5 Thou/mm3 (1.8-7.7); Neutrophils % (Auto) 23 % (37-80); Nucleated Red Blood Cell # 0.16 Thou/mm3 (0.00-0.00); Nucleated Red Blood Cell % 8 /100 WBC (0); Platelet Count 254 Thou/mm3 (140-440); RDW Standard Deviation 49.7 fL (35.1-43.9); Red Blood Count 2.31 Miln/mm3 (4.50-5.90); White Blood Count 2.0 Thou/mm3 (3.8-10.6)
[2025-10-22 13:23] LABS: Hemoglobin 7.4 g/dL (13.5-16.0)
[2025-10-22 13:27] LABS: Bilirubin,Urine Negative (Negative); Blood,Urine Negative (Negative); Clarity,Urine Clear (Clear/Hazy); Color,Urine Colorless (Lt Yel-Yel); Glucose, Urine 4+ (Negative); Ketones,Urine Negative (Negative); Leukocyte Esterase,Urine Negative (Negative); Nitrite,Urine Negative (Negative); PH,Urine 5.5 (5.0-7.0); Protein,Urine Negative (Neg - Trace); RBC,Urine 2 /hpf (0-3); Specific Gravity,Urine 1.031 (1.001-1.035); Squamous Epithelial Cell,Urine 1 /hpf (0-5); Urobilinogen,Urine Negative mg/dL (0.0-1.0); WBC,Urine 1 /hpf (0-5)
[2025-10-22 13:34] LABS: INR 1.0 (0.9-1.3); Partial Thromboplastin Time 28.1 Seconds (22.0-36.0); Prothrombin Time 10.9 Seconds (9.0-12.2)
[2025-10-22 13:43] LABS: Alanine Aminotransferase 49 U/L (10-49); Albumin, Serum 4.3 gm/dL (3.5-5.0); Albumin/Globulin Ratio 1.2 (1.2-2.2); Alkaline Phosphatase 77 U/L (46-116); Anion Gap 9 (7-16); Aspartate Amino Transferase 24 U/L (0-34); BUN/Creatinine Ratio 15 Ratio (12-20); Bilirubin,Total 0.2 mg/dL (0.3-1.2); Blood Urea Nitrogen 15 mg/dL (9-23); C-Reactive Protein 9.2 mg/dL (0.0-0.9); Calcium 8.9 mg/dL (8.3-10.6); Calcium (Corrected) 8.9 mg/dL (8.5-10.1); Carbon Dioxide 27.0 mMol/L (20.0-31.0); Chloride 101 mMol/L (98-107); Creatinine (Component) 1.0 mg/dL (0.6-1.3); Estimated Creatinine Clearance 67.4 mL/min (>60); Globulin 3.6 gm/dL (2.3-3.5); Glucose 240 mg/dL (74-106); Osmolality,Calculated 282 (275-295); Potassium 3.9 mMol/L (3.4-5.1); Procalcitonin 0.11 ng/ml (0.0-0.49); Sodium 137 mMol/L (136-145); Total Protein 7.9 gm/dL (5.7-8.2); eGFR > 60 See Note
[2025-10-22 14:47] LABS: Sed Rate (ESR) 86 mm/hr (0-15)
--- NOTE | 2025-10-22 14:53 | PD.EDRECHK ---
ED Recheck Abnl Lab Rx-RME/HPI General Chief Complaint: Recheck/Abnormal Lab/Rx Stated Complaint: NEEDS BLOOD TRANSFUSIO& R KNEE PAIN Time Seen by Provider: 10/22/25 12:43 Arrival date/time: 10/22/25 12:03 40-year-old male patient with significant history of myelodysplastic syndrome, currently not on any medication, was brought in from PCP for request of blood transfusion and reevaluation of the right knee pain. Patient has been having worsening right knee pain, had arthrocentesis done a month ago and showed crystals showing gouty arthritis probably related to acute myelodysplastic syndrome. Was seen by orthopedic surgeon yesterday Dr. Pope, who recommends aspiration of the knee joints and application or injection of steroids. It was not done yesterday. Instead patient came here for the procedure. Patient is denying any fever denies any redness to the knee patient is ambulatory but limping. Denies any vomiting blood or blood in the stool RME / HPI RME / HPI narrative: 10/22/25 12:03 40-year-old male with a history of arthritis presents to the emergency room with a chief complaint of right knee swelling and tenderness x 1 week. Patient was also told to come to the emergency room due to a low hemoglobin level. I have greeted and performed a focused initial assessment of this patient. A comprehensive ED assessment and evaluation of the patient, analysis of all test results, and completion of the medical decision making process will be conducted by additional ED providers. Exam: Swelling, tenderness to the right knee Strong and regular rhythm S1 and S2 noted Clear bilateral lung sounds Impression: Septic arthritis/arthritis/knee effusion/anemia Related Data Home Medications ?Medication ?Instructions ?Recorded ?Confirmed albuterol sulfate 90 mcg/actuation 1 puff inhalation Q6H PRN 06/15/25 10/21/25 aerosol inhaler shortness of breath or wheezing Previous Rx's ?Medication ?Instructions ?Recorded folic acid 1 mg tablet 1 mg PO BID #90 tabs 06/18/25 furosemide 20 mg tablet 20 mg PO QAM #90 tabs 06/18/25 pantoprazole 40 mg tablet,delayed 40 mg PO QDAY #90 tabs 06/18/25 release thiamine mononitrate (vit B1) 100 100 mg PO QDAY #90 tabs 06/18/25 mg tablet naproxen 500 mg tablet 500 mg PO BID #60 tabs 10/21/25 Allergies Allergy/AdvReac Type Severity Reaction Status Date / Time No Known Allergies Allergy Verified 10/22/25 12:08 Review of Systems Review of Systems Narrative Review of Systems: Review of system reviewed and within normal limits except mentioned in HPI ED Exam Narrative Physical exam: VITAL SIGNS: Reviewed. GENERAL APPEARANCE: Alert and interactive, follows commands, no acute distress, HEAD AND FACE: Non-traumatic. ENT: PERRL, pale conjunctiva, eyelid no trauma, Mucous membrane moist. NECK: Supple, nontender, no nuchal rigidity. CHEST: No tenderness, no crepitus, no paradoxical movement, no retractions. LUNGS: Clear, well ventilated, symmetric, no rales, no wheezing, no ronchi, no stridor, good breath sounds bilaterally. HEART: Regular rate, regular rhythm, no murmur, no gallops. ABDOMEN: Soft, positive bowel sounds, nondistended, no guarding, nontender, no rebound, no masses, RECTAL: Deferred. GENITAL: Deferred. NEUROLOGICAL: Gross motor function intact sensory function intact, Appropriate for age. MUSCULOSKELETAL: low back nontender, full range of motion. EXTREMITIES: Nontender, full range of motion. Right knee swollen, SKIN: Color pale, dry, no rash, no lacerations, no abrasions, no contusions. LYMPHATICS: Deferred. Course Quality Measures none Orders Category Date Time Status Transfuse,blood/blood products ONCE Care 10/22/25 15:05 Active XR knee RT 3V Stat Exams 10/22/25 12:18 Completed Blood Culture (Lab) Stat Lab 10/22/25 12:58 Received CBC Stat Lab 10/22/25 12:53 Completed CMP [Comprehensive Metabolic Panel] Stat Lab 10/22/25 12:53 Completed CRP [C-Reactive Protein] Stat Lab 10/22/25 12:53 Completed ESR [Sed Rate (ESR)] Stat Lab 10/22/25 12:53 Completed Lactate (Lactic Acid) Stat Lab 10/22/25 12:53 Completed PT [Prothrombin Time with INR] Stat Lab 10/22/25 12:53 Completed PTT [Partial Thromboplastin Time] Stat Lab 10/22/25 12:53 Completed Procalcitonin Stat Lab 10/22/25 12:53 Completed Type and Screen Stat Lab 10/22/25 12:53 Completed UA [Urinalysis] Stat Lab 10/22/25 13:05 Completed Uric Acid Stat Lab 10/22/25 12:53 Completed Urine Culture Stat Lab 10/22/25 13:05 Received prbc [Red Blood Cells] Stat Lab 10/22/25 12:53 Completed Bupivacaine Mpf 0.5% [Sensorcaine-Mpf Inj 0.5%] Med 10/22/25 15:15 Discontinued 2 ml INFL X1 ONE MethylPREDNISolone ACETATE [Depo-Medrol Inj] Med 10/22/25 15:00 Discontinued 40 mg IARTICULAR X1 ONE Vital Signs Vital signs: Vital Signs Temperature 98.4 F 10/22/25 12:15 Pulse Rate 112 H 10/22/25 12:15 Respiratory Rate 18 10/22/25 12:15 Blood Pressure 117/74 10/22/25 12:15 Pulse Oximetry (%) 97 10/22/25 12:15 Oxygen Delivery Method Room Air 10/22/25 12:15 Recheck / Abnormal Lab / Rx MDM Narrative MDM Narrative:: 40-year-old male patient with significant history of myelodysplastic syndrome, currently not on any medication, was brought in from PCP for request of blood transfusion and reevaluation of the right knee pain. Patient has been having worsening right knee pain, had arthrocentesis done a month ago and showed crystals showing gouty arthritis probably related to acute myelodysplastic syndrome. Was seen by orthopedic surgeon yesterday Dr. Pope, who recommends aspiration of the knee joints and application or injection of steroids. It was not done yesterday. Instead patient came here for the procedure. Patient is denying any fever denies any redness to the knee patient is ambulatory but limping. Denies any vomiting blood or blood in the stool Patient's workup is significant for a hemoglobin of 7.4. The rest of the labs unremarkable except for leukopenia. Which could be related to acute myelodysplastic syndrome. X-ray of the knee showed large knee effusion otherwise osteoarthritis noted. I was able to spoke with Dr. Pope orthopedic surgeon who saw the patient yesterday who recommends that patient can be aspirated and Depo-Medrol can be injected Plan of care discussed with the patient. Who agrees and accept the risks and benefits of arthrocentesis and steroid injection, including infection of the knee, worsening of swelling, disability, and inability to ambulate. Patient signed consent. The area was prepped aseptically, using Betadine, with the use of sterile technique, I was able to aspirate 30 cc of synovial fluids. There is no sign of pus noted. 40 mg of Depo-Medrol and Sensorcaine 2 mL mL was also infused. Patient tolerated the procedure well no complication noted. Sterile dressing applied Patient received 1 unit of packed RBC with no complication noted. Patient data External records reviewed:: None Clinical information provided by:: patient Social determinants that could affect healthcare access:: none Patient has the following chronic illnesses:: History of anemia, history of myoplastic dysplasia How is presenting disease/condition affected by chronic disease/condition?: exacerbated by Evaluation data The following diagnostics were reviewed and interpreted by me:: lab results and radiology exam(s) Lab and/or radiology exams considered but not ordered:: None Interpretation Summary: See above Medications / Prescriptions Medications or Prescriptions considered but not ordered:: None Medication administrations:: Medication Administration History Discontinued Medications Bupivacaine HCl (Bupivacaine Mpf 0.5% 10 Ml Vial) 2 ml INFL X1 ONE Stop: 10/22/25 15:16 Last Admin: 10/22/25 16:54 Dose: 2 ml Documented By: SHAHRAM Methylprednisolone Acetate (Methylprednisolone Acet Im 40 Mg/Ml Vial) 40 mg IARTICULAR X1 ONE Stop: 10/22/25 15:01 Last Admin: 10/22/25 16:54 Dose: 40 mg Documented By: SHAHRAM See above Consultations Consultation(s) initiated? (list below): No Diagnosis Recheck Differential Diagnosis: other (Knee fluid effusion, knee pain, anemia) Most likely diagnosis given after review of the tests above:: Knee fluid effusion, anemia Admission Indicated Admission indicated?: not indicated Admission Request Was there a request for admission?: No Disposition Plan Disposition Plan: Discharge Discharge Attestation Discharge Attestation: The patient was given an opportunity to ask questions and understood the discharge instructions. Discharge instructions specifically effects, indications for sooner follow up or return to the emergency department, and the expected course of current diagnosis. Patient condition: Stable Discharge Plan Plan Patient Disposition: HOME (Self Care) Discharge Disposition comment: Stable Prescriptions/Referrals Prescriptions/Med Rec: No Action naproxen 500 mg tablet 500 mg PO BID Qty: 60 0RF albuterol sulfate 90 mcg/actuation HFA aerosol inhaler 1 puff INHALATION Q6H PRN (Reason: shortness of breath or wheezing) Patient Comments: INHALE 1 PUFF POR V A ORAL CADA CUATRO HORAS CUANDO SEA NECESARIO folic acid 1 mg Tablet 1 mg PO BID Qty: 90 0RF furosemide 20 mg Tablet 20 mg PO QAM Qty: 90 0RF thiamine mononitrate (vit B1) 100 mg Tablet 100 mg PO QDAY Qty: 90 0RF pantoprazole 40 mg Tablet,Delayed Release (Dr/Ec) 40 mg PO QDAY Qty: 90 0RF Referrals: Santhosh Telles MD [Primary Care Provider, Family Practice] - In 1 week Problem List Clinical Impression: Myelodysplasia (myelodysplastic syndrome), Crystalline arthritis, Anemia Patient/Caregiver Discharge Instructions Discharge Activity: activity as tolerated Education Materials: Anemia Additional Instructions: Thank you for the opportunity for serving you today. You are stable for discharged . You are advised to: Follow-up with your PCP in 1 to 2 days Return to ED for worsening of symptoms Print Language: Montenegrin Stand Alone Forms: Melly Award Info., Patient Portal Info Letter PA/CONING MACHINE OPERATOR Supervising Physician PA/PITO Supervising Physician: MD Austin
[2025-10-22 15:45] LABS: Uric Acid 3.3 mg/dL (3.7-9.2)
[2025-10-22] MEDS: [UNRECOGNIZED DRUG - OTHER] IARTICULAR (16:54)
[2025-10-22] MEDS: BUPIVACAINE MPF 0.5% 10 ML VIAL 2 ML INFL (16:54)
[2025-10-22 17:00] VITALS: BP 105/61; PULSE 104; RESP 16; TEMP 37.1; O2SAT 98
[2025-10-22 17:14] VITALS: BP 105/61; PULSE 102; RESP 16; TEMP 36.9; O2SAT 98
[2025-10-22 17:37] VITALS: BP 104/64; PULSE 95; RESP 16; TEMP 36.8; O2SAT 98
[2025-10-22 17:52] VITALS: BP 103/68; PULSE 91; RESP 16; TEMP 36.8; O2SAT 98
[2025-10-22 19:23] VITALS: BP 102/63; PULSE 93; RESP 14; TEMP 37; O2SAT 99
[2025-10-22] MEDS: HYDROcodone/APAP 5/325 TABLET 1 TAB PO (19:34)
== END 2025-10-22 19:58 | disposition home or self-care (01) ==
PROVIDERS: Nurse Practitioner Family; Emergency Provider Family Medicine; PCP Family Medicine
DX: M11.9 Crystal arthropathy, unspecified (principal); D46.9 Myelodysplastic syndrome, unspecified
CPT/HCPCS: 36415; 36430; 73562; 80053; 81001; 83605; 84145; 84550; 85025; 85610; 85652; 85730; 86140; 86850; 86900; 86901; 86923; 87040; 87086; 99283; J1010; J3490; P9016; A9270

== ENCOUNTER 2025-10-31 18:07 | Emergency (ER) | payer MEDICAID, SELFPAY ==
[2025-10-31 18:09] VITALS: BMI 26.4
[2025-10-31 18:27] VITALS: BP 112/66; PULSE 93; RESP 18; TEMP 36.7; O2SAT 99
--- NOTE | 2025-10-31 19:42 | EDRME_ITS ---
Rapid Medical Screening Exam [facility] Arrival date/time: 10/31/25 18:07 This is a case of 40-year-old male who came into the emergency room due to dark- colored stool and abdominal pain and rectal pain for 3 days worsening of the symptoms this patient decided to start consulted in the emergency room Chief Complaint: General Adult/Misc Complain Time Seen by Provider: 10/31/25 18:32 Vital signs: Vital Signs Temperature 98.0 F 10/31/25 18:27 Pulse Rate 93 10/31/25 18:27 Respiratory Rate 18 10/31/25 18:27 Blood Pressure 112/66 10/31/25 18:27 Pulse Oximetry (%) 99 10/31/25 18:27 Oxygen Delivery Method Room Air 10/31/25 18:27 Exam: Abdominal exam is benign nonsurgical no guarding no rebound no rigidity noted rectal exam external hemorrhoid Clinical Impression: Rectal pain abdominal pain
[2025-10-31 20:00] LABS: Basophils # (Auto) 0.0 Thou/mm3 (0.0-0.2); Basophils % (Auto) 0 % (0-2.5); Eosinophils # (Auto) 0.0 Thou/mm3 (0.0-0.5); Eosinophils % (Auto) 0 % (0-10); Hematocrit 25.5 % (41.0-53.0); Immature Granulocytes Auto 0.02 Thou/mm3 (0.00-0.00); Lymphocytes # (Auto) 2.0 Thou/mm3 (1.0-4.8); Lymphocytes % (Auto) 72 % (10-50); Mean Corpuscular HGB Conc 32.9 g/dl (31.0-37.0); Mean Corpuscular Hemoglobin 31.7 pg (25.0-35.0); Mean Corpuscular Volume 96 fL (80-100); Monocytes # (Auto) 0.4 Thou/mm3 (0.0-0.8); Monocytes % (Auto) 13 % (0-12); Neutrophils # (Auto) 0.4 Thou/mm3 (1.8-7.7); Neutrophils % (Auto) 14 % (37-80); Nucleated Red Blood Cell # 0.12 Thou/mm3 (0.00-0.00); Nucleated Red Blood Cell % 4 /100 WBC (0); Platelet Count 164 Thou/mm3 (140-440); RDW Standard Deviation 45.3 fL (35.1-43.9); Red Blood Count 2.65 Miln/mm3 (4.50-5.90); White Blood Count 2.8 Thou/mm3 (3.8-10.6)
[2025-10-31 20:03] LABS: Hemoglobin 8.4 g/dL (13.5-16.0)
[2025-10-31 20:12] VITALS: BP 108/59; PULSE 84; RESP 16; TEMP 36.7; O2SAT 98
[2025-10-31 20:16] LABS: Alanine Aminotransferase 66 U/L (10-49); Albumin, Serum 3.8 gm/dL (3.5-5.0); Albumin/Globulin Ratio 1.1 (1.2-2.2); Alkaline Phosphatase 106 U/L (46-116); Anion Gap 7 (7-16); Aspartate Amino Transferase 18 U/L (0-34); BUN/Creatinine Ratio 16 Ratio (12-20); Bilirubin,Total 0.2 mg/dL (0.3-1.2); Blood Urea Nitrogen 16 mg/dL (9-23); Calcium 9.0 mg/dL (8.3-10.6); Calcium (Corrected) 9.2 mg/dL (8.5-10.1); Carbon Dioxide 28.6 mMol/L (20.0-31.0); Chloride 100 mMol/L (98-107); Creatinine (Component) 1.0 mg/dL (0.6-1.3); Estimated Creatinine Clearance 81.4 mL/min (>60); Globulin 3.4 gm/dL (2.3-3.5); Glucose 347 mg/dL (74-106); Lipase 82 U/L (12-53); Osmolality,Calculated 287 (275-295); Potassium 4.0 mMol/L (3.4-5.1); Sodium 136 mMol/L (136-145); Total Protein 7.2 gm/dL (5.7-8.2); eGFR > 60 See Note
--- NOTE | 2025-10-31 20:26 | EDNOTE_ITS ---
ED General RME/HPI General Chief complaint: Abdominal Pain Stated complaint: RECTAL PAIN X4 DAYS Time Seen by Provider: 10/31/25 18:32 Arrival date/time: 10/31/25 18:07 Limitations: no limitations RME / HPI RME / HPI narrative: 10/31/25 18:07 This is a case of 40-year-old male who came into the emergency room due to dark- colored stool and abdominal pain and rectal pain for 3 days worsening of the symptoms this patient decided to start consulted in the emergency room Dr. Khan's Main ED Evaluation: 40yo male with a history of anemia presents to the ED for a chief complaint of rectal pain x 3 days. Patient states he was constipated up until this morning when he had a bowel movement and noticed he was having dark stools. Patient reports he recently started taking iron pills. Patient denies any abdominal pain, hematemesis, coffee-ground emesis, fever, chills, or any other associated symptoms. NKA. Related Data Home Medications ?Medication ?Instructions ?Recorded ?Confirmed albuterol sulfate 90 mcg/actuation 1 puff inhalation Q 6H PRN 06/15/25 10/21/25 aerosol inhaler shortness of breath or wheez ing Previous Rx's ?Medication ?Instructions ?Recorded folic acid 1 mg tablet 1 mg PO BID #90 tabs 5 furosemide 20 mg tablet 20 mg PO QAM #90 tabs pantoprazole 40 mg tablet,delayed 40 mg PO QDAY #90 ta bs 06/18/25 release thiamine mononitrate (vit B1) 100 100 mg PO QDAY #90 t abs 06/18/25 mg tablet naproxen 500 mg tablet 500 mg PO BID #60 tabs 10/21 hydrocortisone 2.5 % topical cream 1 applic RI QDAY RI N pain 5 days 10/31/25 with perineal applicator #30 grams (Anusol-HC) polyethylene glycol 3350 17 17 g PO QDAY 7 days #119 g pepe 10/31/25 gram/dose oral powder (Miralax) Allergies Allergy/AdvReac Type Severity Reaction Status Date / Time No Known Allergies Allergy Verified 10/31/25 18:11 Review of Systems Review of Systems Systems Reviewed: All systems reviewed, normal except as documented ED Exam General Limitations: Present no limitations General appearance: Present alert and in no apparent distress Head Head exam: Present atraumatic Eye Eye exam: Present normal appearance, PERRL and EOMI ENT ENT exam: Present normal exam, normal oropharynx and mucous membranes moist Neck Neck exam: Present normal inspection, full ROM and trachea midline Chest Chest inspection: Present normal inspection and symmetric chest wall rise Respiratory Respiratory exam: Present normal lung sounds bilaterally Cardiovascular Cardiovascular exam: Present regular rate, normal rhythm and normal heart sounds Abdominal Exam Abdominal exam: Present soft; Absent distention or tenderness Rectal Exam Rectal exam: Present other (supervisor pairing and inspecting present, external hemorrhoid that is not thrombosed) Extremities Exam Extremities exam: Present normal inspection and full ROM Back Exam Back exam: Present normal inspection and full ROM Neurological Exam Neurological exam: Present alert, oriented X3 and CN II-XII intact Psychiatric Psychiatric exam: Present normal affect and normal mood Skin Skin exam: Present warm, dry, intact and normal color Course Quality Measures none Orders Category Date Time Status CBC Stat Lab 10/31/25 19:46 Completed Comprehensive Metabolic Panel Stat Lab 10/31/25 19:46 Completed Lipase Stat Lab 10/31/25 19:46 Completed Urinalysis Stat Lab 10/31/25 20:30 Completed Vital Signs Vital signs: Vital Signs Temperature 98.0 F 10/31/25 18:27 Pulse Rate 93 10/31/25 18:27 Respiratory Rate 18 10/31/25 18:27 Blood Pressure 112/66 10/31/25 18:27 Pulse Oximetry (%) 99 10/31/25 18:27 Oxygen Delivery Method Room Air 10/31/25 18:27 Discharge Plan Plan Patient Disposition: HOME (Self Care) Patient condition on transfer: Stable Prescriptions/Referrals Prescriptions/Med Rec: New hydrocortisone [Anusol-HC] 2.5 % cream with perineal applicator 1 applic RI QDAY PRN (Reason: pain) 5 Days Qty: 30 0RF polyethylene glycol 3350 [Miralax] 17 gram/dose powder 17 g PO QDAY 7 Days Qty: 119 0RF No Action naproxen 500 mg tablet 500 mg PO BID Qty: 60 0RF albuterol sulfate 90 mcg/actuation HFA aerosol inhaler 1 puff INHALATION Q6H PRN (Reason: shortness of breath or wheezing) Patient Comments: INHALE 1 PUFF POR V A ORAL CADA CUATRO HORAS CUANDO SEA NECESARIO folic acid 1 mg Tablet 1 mg PO BID Qty: 90 0RF furosemide 20 mg Tablet 20 mg PO QAM Qty: 90 0RF thiamine mononitrate (vit B1) 100 mg Tablet 100 mg PO QDAY Qty: 90 0RF pantoprazole 40 mg Tablet,Delayed Release (Dr/Ec) 40 mg PO QDAY Qty: 90 0RF Referrals: Santhosh Telles MD [Primary Care Provider, Family Practice] - 11/01/25 Problem List Clinical Impression: Acute hemorrhoid Patient/Caregiver Discharge Instructions Education Materials: ED Hemorrhoids Print Language: Lithuanian Stand Alone Forms: Melly Award Info., Patient Portal Info Letter MDM Narrative MDM hospital course (for use when minimal MDM required): Scribe Attestation: 10/31/25 - Mimi Viera am scribing for and in the presence of Dr. Khan. Reviewed nurses' notes and discussed with the patient, patient does not have any abdominal pain. Patient otherwise has small hemorrhoid on exam. No bright red blood per rectum. Patient is not having abdominal pain. Do not suspect upper or lower GI bleed. Return precautions are given and understood. Clinical Information Provided by: patient Medical Records reviewed [facility] (Per chart review, patient was seen here on 10/22/25 for anemia.) Meds/Rx considered, not ordered None Labs/Rad/Tests considered, not ordered None Chronic Illness/Social Conditions Explain: Hx anemia Labs Labs: interpreted by ri Lab(s) Interpretation(s): Hgb 8.4 and Hct 25.5 which is stable. Imaging Imaging interpretation: none Medication Administration(s) none Diagnosis Differential Diagnosis ED Complaint MDM: GI bleed, iron deficiency anemia, internal hemorrhoid, external hemorrhoid
[2025-10-31 20:41] LABS: Collection Type, Urine Clean Catch
[2025-10-31 20:48] LABS: Bilirubin,Urine Negative (Negative); Blood,Urine Negative (Negative); Clarity,Urine Clear (Clear/Hazy); Color,Urine Lt-Yellow (Lt Yel-Yel); Glucose, Urine 4+ (Negative); Ketones,Urine Negative (Negative); Leukocyte Esterase,Urine Negative (Negative); Nitrite,Urine Negative (Negative); PH,Urine 6.5 (5.0-7.0); Protein,Urine Negative (Neg - Trace); RBC,Urine 1 /hpf (0-3); Specific Gravity,Urine 1.047 (1.001-1.035); Squamous Epithelial Cell,Urine 1 /hpf (0-5); Urobilinogen,Urine Negative mg/dL (0.0-1.0); WBC,Urine < 1 /hpf (0-5)
[2025-10-31 22:00] VITALS: BP 112/58; PULSE 72; RESP 18; TEMP 36.8; O2SAT 99
== END 2025-10-31 22:01 | disposition home or self-care (01) ==
PROVIDERS: Nurse Practitioner Family; Emergency Provider Emergency Medicine; PCP Family Medicine
DX: K64.9 Unspecified hemorrhoids (principal)
CPT/HCPCS: 36415; 80053; 81001; 83690; 85025; 99282

== ENCOUNTER 2025-11-09 12:59 | Outpatient (AMB) | payer MEDICAID, SELFPAY ==
--- NOTE | 2025-11-09 13:15 | ORTHONT_ITS ---
Vital signs 11/09/25 13:16 Height 1.63 m Height Method Measured Weight 48.648 kg Weight Measurement Method Standing Scale BMI 18.3 BP 106/66 Blood Pressure Source Automatic Cuff Blood Pressure Location Left Upper Arm Position Sitting Respiration 16 Pulse 100 Pulse Source Monitor Temp 98.0 F Temp Source Temporal Artery Scan Pulse Oximetry (%) 99 Oxygen Delivery Method Room Air Med/Allergies Allergies & Medications Allergies No Known Allergies Allergy (Verified 11/09/25 13:18) Medication Reconciliation albuterol sulfate 90 mcg/actuation aerosol inhaler 1 puff inhalation Q6H PRN shortness of breath or wheezing 06/15/25 [History Confirmed 11/09/25] folic acid 1 mg tablet 1 mg PO BID #90 tabs 06/18/25 [Rx Confirmed 11/09/25] furosemide 20 mg tablet 20 mg PO QAM #90 tabs 06/18/25 [Rx Confirmed 11/09/25] pantoprazole 40 mg tablet,delayed release 40 mg PO QDAY #90 tabs 06/18/25 [Rx Confirmed 11/09/25] thiamine mononitrate (vit B1) 100 mg tablet 100 mg PO QDAY #90 tabs 06/18/25 [Rx Confirmed 11/09/25] naproxen 500 mg tablet 500 mg PO BID #60 tabs 10/21/25 [Rx Confirmed 11/09/25] Exam Exam Patient is in no acute distress and is cooperative with the examination today. Breathing is nonlabored. Patient has a normal mood and affect. The patient has a gait that is nonantalgic Bilateral extremities were evaluated and demonstrates sensation intact to light touch. Palpable pedal pulses are present. No significant edema is present. Bilateral hips were examined. The patient has no pain with log roll of the hips. Internal rotation to 30 degrees and external rotation to 30 degrees is painless. Negative FADIR. Left knee was examined today. The left knee is in reasonable alignment. Range of motion from 0-120 degrees. Knee is stable to varus and valgus as well as AP translation with <5mm. Patient has a negative McMurrays. There is no pain with patellofemoral compression and no crepitus noted. The knee is nontender to palpation. The right knee was also examined. The right knee is in neutral alignment. Range of motion from 0-120 degrees. Knee is stable to varus and valgus as well as AP translation with <5mm. Patient has a negative McMurrays. There is no pain with patellofemoral compression and no crepitus noted. The knee is tender to palpation diffusely. RESULTS Labs - Cell count: 09/2025, 7206 with a PMN count of 65% - Blood culture: 09/2025, Positive for Salmonella - Synovial aspirations: 09/2025, No positive growth Assessment and Plan Problem List (1) Myelodysplasia (myelodysplastic syndrome): Status: Acute (2) Crystalline arthritis: Status: Acute Plan: ASSESSMENT AND PLAN 1. Right knee pain: Right knee pain is likely due to recurrent flares causing knee swelling. Synovial fluid analysis did not indicate an infection, and the presence of crystals suggests a diagnosis of gout or pseudogout. It is recommended to inform the primary care physician about the diagnosis of crystal and joint disease. The risks and benefits of the cortisone injection were discussed, including potential relief from pain and swelling versus possible side effects such as infection or increased pain. Lifestyle modifications such as avoiding foods high in purines and staying hydrated were recommended to help manage gout symptoms. Given that his crystalline knee disease is related to myelkoduysp-lsyndrome, I would see his primary care provider or a supervisor major appliance assembly for management of this at prevent future recurrences. 2. Myelodysplastic syndrome: Myelodysplastic syndrome may contribute to the symptoms experienced. No specific treatment plan was discussed during the visit for this condition. Office Procedures GNS Level of Care Nursing/Assessment Patient Status: Established Patient Nursing Assessment/Reassesment: Medication Reconciliation, Update PMH in EMR and Vital Signs Coordination of Care: Complex Care and Chronic Disease 1-5, Education Complex Pt/Fam, Consent,records obtained, informed consent, Results/Orders obtained and Staff clarify orders Special Needs: Language special needs Established Patient Charge Established Patient Point Assignment: 95 Established Patient Point Charge: EP Level 3 (80-115) MA Intake Visit Data Collection New Patient or Established: Established Patient (seen at [facility] within 3 years) Reason for Visit:: RT KNEE PAIN/POSSIBLE INJECTION Seen by Clinical Staff ONLY (RN/MA): No Thickener Operator Required: Yes PCP or OBGYN visit in last 3 months: Yes Hx Now: No Do You Feel Safe at Home: Yes Authorities Contacted: N/A Questionairres Past Medical History Past Medical History Have you ever been diagnosed with any of the following: Neurological Problems Cerebrovascular Accident (CVA): No Transient Ischemic Attacks (TIA): No Dementia: No Alzheimer's Disease: No Parkinson's Disease: No Brain Tumor: No Meningitis: No Seizures: No Epilepsy: No Multiple Sclerosis: No Cerebral Palsy: No Amyotrophic Lateral Sclerosis (ALS/Betsy Gehrig's): No Guillain-[place] Syndrome: No Spina Bifida: No Paralysis: No Peripheral Neuropathy: No Cabral's Palsy: No Subdural Hematoma: No Migraine: No Head Trauma: No Spinal Cord Injury: No Traumatic Brain Injury: No Cardiology Problems Myocardial Infarction: No Cardiac Arrhythmia: No Atrial Fibrillation: No Angina: No Heart Murmur: No Coronary Artery Disease: No Atherosclerotic Heart Disease: No Peripheral Vascular Disease: No Hypercholesterolemia: No Aneurysm: No Congestive Heart Failure: No Congenital Heart Disease: No Valvular Heart Disease: No Rheumatic Fever: No Cardiomyopathy: No Edema: No Pericarditis: No Cellulitis: No Deep Vein Thrombosis: No Hypertension: No Hypotension: No Varicose Veins: No Respiratory Problems Chronic Obstructive Pulmonary Disease (COPD): No Asthma: Yes Bronchitis: No Emphysema: No Pneumonia: No Pulmonary Fibrosis: No Tuberculosis: No Pulmonary Embolism: No Pulmonary Edema: No Sleep Apnea: No Stomache/Intestinal Problems Hepatitis: No Cirrhosis: No Pancreatitis: No Celiac Disease: No Gall Bladder Disease: No Gastrointestinal Bleed: No Esophageal Varices: No Holcomb's Esophagus: No Colitis: No Ulcerative Colitis: No Diverticulitis: No Diverticulosis: No Ulcer: No Colorectal Cancer: No Irritable Bowel: No Crohn's Disease: No Obstructive Bowel: No Hiatal Hernia: No Hemorrhoids: No Gastroesophageal Reflux Disease: No Obesity: No Genital/Urinary Problems Renal Disease: No Kidney Stones: No Polycystic Kidney Disease: No Neurogenic Bladder: No Inguinal Hernia: No Dialysis: No Prostate Cancer: No Benign Prostatic Hyperplasia: No Reproductive Problems Breast Cancer: No Genital Herpes: No Gonorrhea: No Syphilis: No Testicular Cancer: No Musculoskeletal Problems Muscular Dystrophy: No Myasthenia Gravis: No Marfan's Syndrome: No Bone Cancer: No Arthritis: No Rheumatoid Arthritis: No Osteoporosis: No Degenerative Disk Disease: No Gout: No Scoliosis: No Carpal Tunnel Syndrome: No Fibromyalgia: No Fractures: No Degenerative Joint Disease: No Osteomyelitis: No Poliovirus: No Head,Eye,Nose,Throat Problems Cataracts: No Glaucoma: No Blind: No Retinal Detachment: No Macular Degeneration: No Chronic Ear Infections: No Deafness: No Eye Prosthesis: No Endocrine Problems Diabetes Mellitus Type 1: No Diabetes Mellitus Type 2: Yes Hypoglycemia: No Yessy's Syndrome: No Rob's Disease: No Hyperthyroidism: No Hypothyroidism: No Parathyroid Disease: No Pituitary Disease: No Systemic Lupus Erythematosus: No Syndrome of Inappropriate Antidiuretic Hormone: No Adrenal Disease: No Graves' Disease: No Blood Problems Anemia: Yes Leukemia: No Hemophilia: No Thalassemia: No Sickle Cell Disease: No Clotting Problems: No Psychologic Problems Schizophrenia: No Recreational Drug Use: No Bipolar Disorder: No Depression: No Anxiety: No Behavior Problems: No Self-Mutilation: No Attention Deficit Disorder: No Attention Deficit Hyperactivity Disorder: No Depression: No Post Traumatic Stress Disorder: No Eating Disorder: No Other Problems Hospitalization: No Down Syndrome: No Autism: No Developmental Delay: No Shingles: No Falls: No Blood Transfusions: Yes Blood Transfusion Reaction: No Anesthesia Reactions: No Organ Transplant: No Chemotherapy: No Radiation Therapy: No Hyperbaric Therapy: No MRSA: No VRSA: No Vancomycin-Resistant Enterococci: No Human Immunodeficiency Virus (HIV): No Chicken Pox: No Measles: No Mumps: No Rubella (Kazakh Measles): No Pertussis: No Clostridium Difficile: No Cancer: No Lung Cancer: No Surgical History Carotid Endarterectomy: No Coronary Artery Bypass Graft: No Valve Replacement: No Pacemaker: No Thyroidectomy: No Subjective Visit Visit for: follow up visit and knee Immunization / Flu Flu Vaccine in the Last 12 Months: No Flu Vaccine Exclusion Criteria: Refused by Patient and Already Received History of Present Illness Chief complaint: RT KNEE PAIN/POSSIBLE INJECTION HISTORY OF PRESENT ILLNESS IMichael, have obtained verbal consent from the patient, to be recorded during this encounter which may include, but not limited to, medical history, examination, treatment plans, and relevant health information.? Patient was informed that recording will be read and reviewed by myself before inclusion in the medical chart. The patient is a 40-year-old male with myelodysplastic syndrome and knee pain. He is accompanied by an ecdis n navigation operator. He went to the emergency room in September where they performed a knee aspiration to rule out infection. His cell count was 7206 with a PMN count of 65%. Multiple blood cultures were taken, and one blood culture was positive for Salmonella. None of the synovial aspirations demonstrated any positive growth. He reports experiencing pain in his right knee, which has been progressively worsening over the years. He has been under the care of an processing specialist in [place], who administered an injection into the lateral aspect of his knee. He has experienced recurrent episodes of knee swelling, with 4 to 5 instances occurring within the past year. He has been diagnosed with gout or pseudogout, characterized by the presence of crystals in his joints. He has been prescribed naproxen for pain management, but it has not provided significant relief. He has a history of myelodysplastic syndrome, a type of cancer similar to leukemia, which has resulted in a low white blood cell count. Personal History Red flag PMH: none BMI Counceling provided: Yes Pain Pain level (0-10): 8 Pain location: inside (medial) and outside (lateral) Associated signs & symptoms: none Ambulatory data Ambulatory device: none Treatments Improvement with previous injections: No Improvement with PT: No Improvement with NSAIDS: no Review of Systems Review of Systems: All systems negative unless otherwise noted in HPI.
[2025-11-09 13:16] VITALS: BP 106/66; PULSE 100; RESP 16; TEMP 36.7; O2SAT 99; BMI 18.3
== END 2025-11-09 13:45 | disposition home or self-care (01) ==
PROVIDERS: PCP Internal Medicine; Referring Provider Internal Medicine; Supervising Provider Orthopaedic Surgery Adult Reconstructive Orthopaedic Surgery; Visit Provider Orthopaedic Surgery Adult Reconstructive Orthopaedic Surgery
DX: D46.9 Myelodysplastic syndrome, unspecified (principal); M25.561 Pain in right knee; M11.9 Crystal arthropathy, unspecified
CPT/HCPCS: 99213; G0463

== ENCOUNTER 2025-11-12 17:12 | Inpatient (IN) | payer MEDICAID, SELFPAY ==
[2025-11-12] VITALS (9 sets, daily range): BP systolic 91–115; BP diastolic 51–72; PULSE 92–127; RESP 14–20; TEMP 36.8–37.5; O2SAT 98–100; BMI 21.4
--- NOTE | 2025-11-12 17:47 | EKG_ITS ---
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
--- NOTE | 2025-11-12 19:03 | EDNOTE_ITS ---
ED Arrhythmia Palp. RME/HPI General Chief Complaint: Arrhythmia/Palpitations Stated Complaint: SENT BY PCP FOR PALPITATIONS Time Seen by Provider: 11/12/25 18:53 Arrival date/time: 11/12/25 17:12 RME / HPI RME / HPI narrative: See [facility] for Dr. Horton's HPI Documentation. Related Data Home Medications ?Medication ?Instructions ?Recorded ?Confirmed albuterol sulfate 90 mcg/actuation 1 puff inhalation Q 6H PRN 06/15/25 11/09/25 aerosol inhaler shortness of breath or wheez ing Previous Rx's ?Medication ?Instructions ?Recorded folic acid 1 mg tablet 1 mg PO BID #90 tabs 5 furosemide 20 mg tablet 20 mg PO QAM #90 tabs pantoprazole 40 mg tablet,delayed 40 mg PO QDAY #90 ta bs 06/18/25 release thiamine mononitrate (vit B1) 100 100 mg PO QDAY #90 t abs 06/18/25 mg tablet naproxen 500 mg tablet 500 mg PO BID #60 tabs 10/21 Allergies Allergy/AdvReac Type Severity Reaction Status Date / Time No Known Allergies Allergy Verified 11/09/25 13:18 Review of Systems Review of Systems Systems Reviewed: All systems reviewed, normal except as documented Past Medical History Past Medical History RESPIRATORY: Positive Asthma ENDOCRINE: Positive Diabetes Mellitus Type 2 HEMATOLOGIC: Positive Anemia OTHER HISTORY: Positive Blood Transfusions ED Exam Narrative Physical exam: See [facility] for Dr. Horton's Physical Exam Documentation. Course Quality Measures none Orders Category Date Time Status EKG (ED ONLY) *Do not use* NOW Care 11/12/25 17:47 Completed EKG (ED Only) Stat Exams 11/12/25 17:47 Draft Diltiazem Inj [Cardizem Inj] Med 11/12/25 18:57 Discontinued 20 mg IV X1 ONE Vital Signs Vital signs: Vital Signs Temperature 98.8 F 11/12/25 17:40 Pulse Rate 127 H 11/12/25 17:40 Respiratory Rate 19 11/12/25 17:40 Blood Pressure 115/72 11/12/25 17:40 Pulse Oximetry (%) 98 11/12/25 17:40 Oxygen Delivery Method Room Air 11/12/25 17:40 Arrhythmia/Palpitations MDM Narrative MDM Narrative:: This section includes all my notes and documentations, including HPI, PE, and ED course. Isai Horton MD HPI: 40 y/o male with Type II DM and Asthma here with several hours of cough and shortness of breath and palpitations. No fever or chills. No chest pain. No other complaints. ROS: All negative except as documented in HPI. Physical Exam: General: Alert and oriented. No acute distress when remaining still. Eyes: Conjunctivae and lids clear. ENT: No nasal congestion. Neck: Supple. Heart: Tachycardia with regular rhythm. Lungs: No respiratory distress. Good air movement with scattered rhonchi. Abdomen: Soft and nontender. Skin: Warm and dry. Neuro: Alert and oriented X 3. I reviewed all diagnostic test results: My interpretation of the EKG is: Sinus tachycardia (143 bpm) with nonspecific ST-T changes. My interpretation of the chest x-ray is: NAD. My review of the Chest/Abdomen/Pelvis CTA report is pulmonary embolism My review of the Venous Doppler BLE report is no DVT. Blood tests and urine tests remarkable for Hgb 7.0, D-dimer > 3820. Covid/Influenza: Negative. At this point, diagnoses include: Pulmonary Embolism Severe Anemia Treatment here included: IVF Xopenex 2.5 mg neb treatment SoluMedrol 40 mg IV Heparin bolus and drip Patient remained stable. I discussed the case with our hospitalist. About the presentation and exam and diagnostics and treatments here. And need of further care in the hospital. Will accept the patient. Isai Horton MD Patient data External records reviewed:: [facility] previous records (Reviewed prior ED records from 10/31/25. Patient was seen for Acute hemorrhoid.) Clinical information provided by:: patient Social determinants that could affect healthcare access:: none Patient has the following chronic illnesses:: Anemia, Asthma, Type II DM How is presenting disease/condition affected by chronic disease/condition?: exacerbated by Evaluation data The following diagnostics were reviewed and interpreted by me:: lab results, radiology exam(s) and EKG tracing(s) (My interpretation of the EKG is: Sinus tachycardia (143 bpm) with nonspecific ST-T changes. Isai Horton MD) Lab and/or radiology exams considered but not ordered:: None Interpretation Summary: I reviewed all diagnostic test results: My interpretation of the EKG is: Sinus tachycardia (143 bpm) with nonspecific ST-T changes. My interpretation of the chest x-ray is: NAD. My review of the Chest/Abdomen/Pelvis CTA report is pulmonary embolism My review of the Venous Doppler BLE report is no DVT. Blood tests and urine tests remarkable for Hgb 7.0, D-dimer > 3820. Covid/Influenza: Negative. Medications / Prescriptions Medications or Prescriptions considered but not ordered:: None Medication administrations:: Medication Administration History Discontinued Medications Diltiazem HCl (Diltiazem Inj 5 Mg/Ml Vial 5 Ml) 20 mg IV X1 ONE Stop: 11/12/25 18:58 Treatment here included: IVF Xopenex 2.5 mg neb treatment SoluMedrol 40 mg IV Heparin bolus and drip Consultations Consultation(s) initiated? (list below): Yes Consultation #1 (Physician, Specialty, Details): I discussed the case with our hospitalist. About the presentation and exam and diagnostics and treatments here. And need of further care in the hospital. Will accept the patient. Time: 01:00 Diagnosis Differential diagnosis arrhythmia/palpitations: palpitations, anxiety, sinus tachycardia, artial fibrillation, artial flutter, supraventricular tachycardia and ventricular tachycardia Most likely diagnosis given after review of the tests above:: Pulmonary Embolism Severe Anemia Admission Indicated Admission indicated?: indicated Explain why admission is indicated or not indicated:: Pulmonary Embolism Severe Anemia Admission Request Was there a request for admission?: Yes Admission Attestation Admission request attestation: Discussed case with Hospitalist service regarding admission. Discussed patients ED course, exam findings, labs, and radiology results. Agreed to accept the patient for admission. Disposition Plan Disposition Plan: Admit Discharge Plan Plan Patient Disposition: Admit Acute Care w/in Hospital Problem List Clinical Impression: Pulmonary embolism, Severe anemia
--- NOTE | 2025-11-12 19:10 | EKG_ITS ---
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
--- NOTE | 2025-11-12 19:12 | XR_ITS ---
EXAMINATION: AP chest single view TECHNIQUE: AP portable upright chest single view Date and time: November 12, 2025, 1927 hours, comparison 08/25/2025 INDICATION: Shortness of breath today FINDINGS: Normal heart size No lobar pneumonia or pulmonary edema Intact osseous structures IMPRESSION: No active disease
[2025-11-12] MEDS: SODIUM CHLORIDE 0.9% 1000 ML 1,000 ML 999 ML IV (19:30)
[2025-11-12 19:56] LABS: Lactate (Lactic Acid) 1.5 mMol/L (0.4-2.0)
[2025-11-12 19:58] LABS: Base Excess, Venous 3 (-3-3); O2 Saturation, Venous 95 % (96-97); PCO2, Venous 34 mmHg (36-56); PO2, Venous 62 mmHg (15-58); pH, Venous 7.50 (7.33-7.66)
[2025-11-12 20:05] LABS: Beta Hydroxybutyrate 0.0 mmol/L (<0.6)
[2025-11-12 20:08] LABS: Sed Rate (ESR) 75 mm/hr (0-15)
[2025-11-12 20:12] LABS: Basophils # (Auto) 0.0 Thou/mm3 (0.0-0.2); Basophils % (Auto) 0 % (0-2.5); Eosinophils # (Auto) 0.0 Thou/mm3 (0.0-0.5); Eosinophils % (Auto) 0 % (0-10); Lymphocytes # (Auto) 2.0 Thou/mm3 (1.0-4.8); Mean Corpuscular Volume 93 fL (80-100); Monocytes # (Auto) 0.5 Thou/mm3 (0.0-0.8)
[2025-11-12 20:13] LABS: Hematocrit 20.3 % (41.0-53.0); Immature Granulocytes Auto 0.02 Thou/mm3 (0.00-0.00); Lymphocytes % (Auto) 69 % (10-50); Mean Corpuscular HGB Conc 34.5 g/dl (31.0-37.0); Mean Corpuscular Hemoglobin 32.1 pg (25.0-35.0); Monocytes % (Auto) 16 % (0-12); Neutrophils # (Auto) 0.4 Thou/mm3 (1.8-7.7); Neutrophils % (Auto) 14 % (37-80); Nucleated Red Blood Cell # 0.13 Thou/mm3 (0.00-0.00); Nucleated Red Blood Cell % 5 /100 WBC (0); Platelet Count 162 Thou/mm3 (140-440); RDW Standard Deviation 43.5 fL (35.1-43.9); Red Blood Count 2.18 Miln/mm3 (4.50-5.90); White Blood Count 2.9 Thou/mm3 (3.8-10.6)
[2025-11-12 20:15] LABS: Hemoglobin 7.0 g/dL (13.5-16.0)
[2025-11-12 20:26] LABS: D-Dimer > 3820 ng/mL (<600)
--- NOTE | 2025-11-12 20:29 | XR_ITS ---
Examination: Venous duplex lower extremity sonogram, bilateral. Date and time of exam: November 12, 2025, 1108 hours INDICATIONS: Elevated D-dimer leg pain and swelling several days Technique: Multiple sonographic images of the deep venous system have been obtained. B-mode/2-D grayscale imaging of vascular structures and Doppler spectral analysis (waveforms) and color performed Both legs are examined. Findings: Deep venous systems do not demonstrate abnormal echogenicity. All visualized deep veins exhibit compressibility. All visualized deep veins exhibit augmentation. Impression: Negative for deep vein thrombosis
--- NOTE | 2025-11-12 20:30 | XR_ITS ---
Examination: CTA chest, with intravenous contrast. CTA abdomen, with intravenous contrast. CTA pelvis, with intravenous contrast. 2-D sagittal and coronal reconstructions. 3-D reconstructions. Date and time of exam: November 12, 2025, 2124 hours, comparison June 15, 2025 INDICATIONS: Shortness of breath elevated D-dimer today CTDI vol (mgy) 5.92 DLP (MGycm) 375 Technique: Multiple CTA images, 2.0 mm slice thickness, obtained chest, abdomen, pelvis, with the high-resolution 64 slice scanner. 85 cc Isovue-370 is administered intravenously. Sagittal and coronal 2-D reconstructions are obtained. 3-D reconstructions, angiographic images are obtained. 3-D postprocessing, including vascular maximum intensity projections. Low dose protocols were performed. One or more of the following dose reduction techniques were used; automated exposure control, adjustment of the mA and/or KV according to patient size, use of iterative reconstruction technique. Findings: No thoracic aortic aneurysmal dilatation Positive for small right lower lobe pulmonary artery emboli No pneumonia or pulmonary edema No visualized liver or splenic lesions No gallstones No pancreatic or adrenal mass. No renal or ureteral calculi, no hydronephrosis Normal appendix No bowel obstruction Urinary bladder intact with mild wall thickening Mild prostatomegaly IMPRESSION: Positive for small right lower lobe pulmonary artery emboli
[2025-11-12 20:31] LABS: Alanine Aminotransferase 17 U/L (10-49); Albumin, Serum 4.0 gm/dL (3.5-5.0); Albumin/Globulin Ratio 1.1 (1.2-2.2); Alcohol, Blood Medical < 3.0 mg/dL (0-10.0); Alkaline Phosphatase 86 U/L (46-116); Anion Gap 9 (7-16); Aspartate Amino Transferase 14 U/L (0-34); BUN/Creatinine Ratio 16 Ratio (12-20); Bilirubin,Direct < 0.1 mg/dL (0.0-0.3); Bilirubin,Total 0.2 mg/dL (0.3-1.2); Blood Urea Nitrogen 16 mg/dL (9-23); Calcium 9.3 mg/dL (8.3-10.6); Calcium (Corrected) 9.3 mg/dL (8.5-10.1); Carbon Dioxide 25.9 mMol/L (20.0-31.0); Chloride 103 mMol/L (98-107); Creatine Kinase 35 U/L (34-171); Creatinine (Component) 1.0 mg/dL (0.6-1.3); Estimated Creatinine Clearance 68.6 mL/min (>60); Globulin 3.7 gm/dL (2.3-3.5); Glucose 111 mg/dL (74-106); Lipase 60 U/L (12-53); Magnesium 1.8 mg/dL (1.6-2.6); Osmolality,Calculated 277 (275-295); Potassium 3.5 mMol/L (3.4-5.1); Procalcitonin 0.12 ng/ml (0.0-0.49); Sodium 138 mMol/L (136-145); Thyroid Stimulating Hormone 1.87 uIU/mL (0.55-4.78); Total Protein 7.7 gm/dL (5.7-8.2); Troponin I < 0.002 ng/mL (0.0-0.045); eGFR > 60 See Note
[2025-11-12 20:38] LABS: B-Type Natriuretic Peptide < 20 pg/mL (0-100)
[2025-11-12 20:54] LABS: Glucose Estimated Average 260 mg/dL (80-131); Hemoglobin A1C 10.7 % Hgb (4.8-6.0)
[2025-11-12] MEDS: SODIUM CHLORIDE RT SOL 0.9% 3 ML NEBU INH (20:55)
[2025-11-12] MEDS: LEVALBUTEROL RT 1.25 MG/0.5 ML NEBU 2.5 MG INH (20:55)
[2025-11-12 20:59] LABS: C-Reactive Protein 9.4 mg/dL (0.0-0.9)
[2025-11-12 23:05] LABS: INR 1.0 (0.9-1.3); Partial Thromboplastin Time 29.8 Seconds (22.0-36.0); Prothrombin Time 10.5 Seconds (9.0-12.2)
[2025-11-13] VITALS (17 sets, daily range): BP systolic 92–140; BP diastolic 57–97; PULSE 80–99; RESP 12–19; TEMP 36.6–38.1; O2SAT 95–100; BMI 20.5
[2025-11-13 00:07] LABS: Collection Type, Urine Clean Catch
[2025-11-13 00:40] LABS: Bilirubin,Urine Negative (Negative); Blood,Urine Negative (Negative); Clarity,Urine Clear (Clear/Hazy); Color,Urine Lt-Yellow (Lt Yel-Yel); Culture Indicated,Urine Not Indicated; Glucose, Urine 4+ (Negative); Ketones,Urine Negative (Negative); Leukocyte Esterase,Urine Negative (Negative); Nitrite,Urine Negative (Negative); PH,Urine 6.5 (5.0-7.0); Protein,Urine Negative (Neg - Trace); RBC,Urine 2 /hpf (0-3); Squamous Epithelial Cell,Urine < 1 /hpf (0-5); Urobilinogen,Urine Negative mg/dL (0.0-1.0); WBC,Urine 1 /hpf (0-5)
[2025-11-13 00:45] LABS: Specific Gravity,Urine < 1.005 (1.001-1.035)
[2025-11-13] MEDS: RINGERS LACTATED 1000 ML 1,000 ML 999 ML IV (03:37)
[2025-11-13] MEDS: HEPARIN SOD INJ 5000 UNIT/ML VIAL 4700 UNIT IV (03:38)
[2025-11-13] MEDS: Heparin/D5w 25K 250 ML Ivpb 25,000 UNIT/250 ML BAG 10.62 UNIT IV (03:41)
[2025-11-13 06:42] LABS: Basophils # (Auto) 0.0 Thou/mm3 (0.0-0.2); Basophils % (Auto) 1 % (0-2.5); Eosinophils # (Auto) 0.0 Thou/mm3 (0.0-0.5); Eosinophils % (Auto) 0 % (0-10); Hematocrit 27.9 % (41.0-53.0); Hemoglobin 9.6 g/dL (13.5-16.0); Immature Granulocytes Auto 0.03 Thou/mm3 (0.00-0.00); Lymphocytes # (Auto) 0.7 Thou/mm3 (1.0-4.8); Lymphocytes % (Auto) 46 % (10-50); Mean Corpuscular HGB Conc 34.4 g/dl (31.0-37.0); Mean Corpuscular Hemoglobin 30.6 pg (25.0-35.0); Mean Corpuscular Volume 89 fL (80-100); Monocytes # (Auto) 0.3 Thou/mm3 (0.0-0.8); Monocytes % (Auto) 23 % (0-12); Neutrophils # (Auto) 0.4 Thou/mm3 (1.8-7.7); Neutrophils % (Auto) 28 % (37-80); Nucleated Red Blood Cell # 0.14 Thou/mm3 (0.00-0.00); Nucleated Red Blood Cell % 10 /100 WBC (0); Platelet Count 156 Thou/mm3 (140-440); RDW Standard Deviation 42.1 fL (35.1-43.9); Red Blood Count 3.14 Miln/mm3 (4.50-5.90)
[2025-11-13 06:50] LABS: White Blood Count 1.5 Thou/mm3 (3.8-10.6)
[2025-11-13 07:04] LABS: Anion Gap 9 (7-16); BUN/Creatinine Ratio 19 Ratio (12-20); Blood Urea Nitrogen 13 mg/dL (9-23); Calcium 8.9 mg/dL (8.3-10.6); Carbon Dioxide 25.7 mMol/L (20.0-31.0); Chloride 106 mMol/L (98-107); Creatinine (Component) 0.7 mg/dL (0.6-1.3); Estimated Creatinine Clearance 98.2 mL/min (>60); Glucose 127 mg/dL (74-106); Osmolality,Calculated 283 (275-295); Potassium 4.1 mMol/L (3.4-5.1); Sodium 141 mMol/L (136-145); eGFR > 60 See Note
--- NOTE | 2025-11-13 07:29 | PC.NURSE ---
Report received from pm nurse, patient lying in rtiff queitly no distress noted, patient denies pain, patient on heparin gtt at 18units/kg, skin is warm dry and pink, patient Sinus Rythm on the hospice clinical supervisor, patient awaiting bed on floor. Patient has no other needs at this time, call light within reach.
--- NOTE | 2025-11-13 07:38 | PC.NURSE ---
Patient requesting tylenol for sorethroat. Will give medication per MD order.
[2025-11-13] MEDS: ACETAMINOPHEN 325 MG TABLET 650 MG PO ×2 (07:39→15:55)
--- NOTE | 2025-11-13 07:58 | ESHP_ITS ---
Documentation for date of: 11/13/25 HPI - Hospitalist History of Present Illness History of Present Illness: SOB History of present illness: 40-year-old male patient with past medical history significant for myelodysplastic syndrome, insulin-dependent diabetes, remote history of alcohol abuse presented to ED for shortness of breath, and palpitations the patient symptoms started a few days earlier and have been stable as there was no improvement patient decided to come to ED, denies any symptoms of chest pain fever, chills, headaches or other neurosymptoms. At ED patient's vitals were noted for borderline hypotension tachycardia labs showed WBC count of 2.9, Hgb 7.0, neutrophil 14%, ESR 75, D-dimer>3280, VBG noted for PaO2 62. BLE venous Doppler was negative for DVT but CTA of chest showed small right lower lobe PE. Patient was transfused 2 units of PRBC in ED. Patient was admitted for further evaluation and care of PE in setting of MDS with neutropenia and severe anemia. Review of Systems Review of Systems Systems Reviewed: All systems reviewed, normal except as documented Meds Home Medications and Allergies Home Medications ?Medication ?Instructions ?Recorded ?Confirmed ?Type albuterol sulfate 90 mcg/actuation 1 puff inhalation Q 6H PRN 06/15/25 11/09/25 History aerosol inhaler shortness of breath or wheez ing Allergies Allergy/AdvReac Type Severity Reaction Status Date / Time No Known Allergies Allergy Verified 11/09/25 13:18 Exam Vital Signs Temp Pulse Resp BP Pulse Ox O2 Del Method 98.2 F 93 14 100/62 99 Room Air 11/13/25 07:26 11/13/25 07:26 11/13/25 07:26 11/13/25 07:26 11/13/25 07:26 11/13/25 07:26 Narrative General: Ill-appearing, underweight but not in distress, normal mood and affect. HEENT: Normocephalic, atraumatic, anicteric, EOM intact, PERRLA, moist mucous membranes. Heart: RRR, no murmur or gallop. Lungs: Clear to auscultation with equal breath sounds bilaterally. Abdomen: Bowel sounds normal, soft, non distended, no tenderness or guarding, no CVA tenderness Extremities: Sensation, circulation &motor function intact and equal in all extremities. Neurologic: Alert and oriented to name, place and date of , CN II-XII intact, able to move all extremities, DTRs normal Skin: Warm, dry, no rashes or ecchymosis noted. Results - Hospitalist Labs Diagrams: 11/13/25 06:26 11/13/25 06:26 Labs: Short CBC 11/12/25 11/13/25 Range/Units 19:23 06:26 WBC 2.9 L 1.5 L D (3.8-10.6) Thou/mm3 Hgb 7.0 L 9.6 L D (13.5-16.0) g/dL Hct 20.3 L* 27.9 L (41.0-53.0) % Plt Count 162 156 (140-440) Thou/mm3 BMP 11/12/25 11/13/25 19:23 06:26 Sodium 138 141 Potassium 3.5 4.1 D Chloride 103 106 Carbon Dioxide 25.9 25.7 BUN 16 13 Creatinine 1.0 0.7 Glucose 111 H 127 H Calcium 9.3 8.9 Cardiac Enzymes 11/12/25 Range/Units 19:23 Total Creatine Kinase 35 (34-171) U/L Troponin I < 0.002 (0.0-0.045) ng/mL Liver Function 11/12/25 Range/Units 19:23 Total Bilirubin 0.2 L (0.3-1.2) mg/dL Direct Bilirubin < 0.1 (0.0-0.3) mg/dL AST 14 (0-34) U/L ALT 17 (10-49) U/L Alkaline Phosphatase 86 (46-116) U/L Albumin 4.0 (3.5-5.0) gm/dL Urine 11/12/25 Range/Units 23:35 Urine Color Lt-Yellow (Lt Yel-Yel) Urine Clarity Clear (Clear/Hazy) Urine pH 6.5 (5.0-7.0) Ur Specific Rossiter < 1.005 (1.001-1.035) Urine Protein Negative (Neg - Trace) Urine Glucose (UA) 4+ A (Negative) ABG Interpretation ABG results: 11/12/25 19:23 VBG pH 7.50 VBG pCO2 34 L VBG pO2 62 H VBG Base Excess 3 Assessment & Plan -Hospitalist Additional Assessment 40-year-old male patient with past medical history significant for myelodysplastic syndrome, insulin-dependent diabetes, remote history of alcohol abuse admitted for evaluation and care of PE in setting of MDS with neutropenia and severe anemia. #Pulmonary embolism #Acute hypoxic respiratory failure Patient started on heparin drip Oxygen as needed Monitor for hemodynamic instability Follow-up echocardiogram Reach out to hematology?Dr. Briones for further information and recommendations. #Myelodysplastic syndrome #Normocytic anemia #Leukopenia #Neutropenia Patient transfused 2 units of PRBC in ED Follow-up posttransfusion H&H. Patient has no symptoms of active infection. No need for antibiotics at this time Hematology consults per day team #IDDM II Insulin degludec 20 units twice daily Insulin sliding scale Follow-up A1c Diet: Carb consistent diet DVT: Heparin drip Code full code After examination of the patient and review of the clinical data I feel that this patient needs admission to the hospital for further treatment/evaluation. Plan of care discussed with patient and is in agreement. Lemuel Lopez MD Quality Measures Quality Measures VTE prophylaxis
[2025-11-13 08:06] LABS: Band Neutrophils (Manual) 2 % (0-6); Lymphocytes (Manual) 63 % (20-44); Monocytes (Manual) 10 % (2-9); Neutrophils (Manual) 25 % (50-70)
[2025-11-13 08:12] LABS: Atypical Lymphs Occ
[2025-11-13 08:13] LABS: Path Review Blood Smear Sent to Pathologist
--- NOTE | 2025-11-13 08:34 | PC.OT ---
Dr. Sunny Oliver at bedside to evaluate patient.
--- NOTE | 2025-11-13 09:09 | PC.NURSE ---
Patient ate 100% of his breakfast tray.
[2025-11-13] MEDS: PANTOPRAZOLE 40 MG TABLET PO (09:16)
[2025-11-13] MEDS: INSULIN DEGLUDEC 5 UNIT/0.05 ML (PER 5 UNITS) 20 UNIT SC ×2 (09:17→20:57)
[2025-11-13 11:20] LABS: INR 1.0 (0.9-1.3); Partial Thromboplastin Time 66.3 Seconds (22.0-36.0); Prothrombin Time 10.9 Seconds (9.0-12.2)
[2025-11-13] MEDS: INSULIN LISPRO (AdmeLOG) 1 UNIT/0.01 ML UNIT SC (12:06)
--- NOTE | 2025-11-13 12:11 | PC.NURSE ---
Patient sleeping in gurney, arouses to vigorous stimuli, opens eyes and falls back to sleep easily, patient twitching legs intermittently, skin is warm, dry and jaundice, call light within reach.
--- NOTE | 2025-11-13 14:10 | ESPR_ITS ---
<Statement entered by Vaughn Oliver MD - 11/13/25 16:43> Overnight admission. Seen and examined at bedside in ED and does not have any complaints at this time. He is unsure of who he follows up outpatient for his myelodysplastic syndrome but states that his physician is here in [place]. Per chart review, patient follows up with Dr. Briones. Reached out and will need to clarify as recommendations were to treat PE and then transfer to tertiary care center. Otherwise, vital signs stable as he is on room air. CBC shows leukopenia of 1.5, stable hemoglobin, and normal platelets. ANC 450, severe neutropenia and reverse isolation precautions initiated. Chem panel largely unremarkable but A1c noted to be 10.7%. Will continue heparin drip for PE and transition to oral anticoagulation in upcoming days. ----- Note reviewed and agree with care plan as documented. Please refer to the note below for further details. Plan discussed with attending physician Dr. Jonel Oliver MD PGY-2 Internal Medicine Documentation for date of: 11/13/25 Subjective Subjective Interval history: Overnight admission: The patient is a 40-year-old male with a significant past medical history of diabetes mellitus (on insulin), gout arthritis, and recently diagnosed myelodysplastic syndrome (June 2025). He was sent by his primary care provider to the hospital for evaluation of palpitations. At bedside, the patient reports no chest pain, palpitations, nausea, or vomiting, diziness. He endorses a cough and chronic neck pain but denies hemoptysis or sputum production. Denies any recent immobilization, recent travel history for long hours. He reports right knee pain, with swelling and warmth, progressively worsening over the past few weeks but otherwise stable. The patient saw orthopedic on 11/09/2025 and was prescribed naproxen for pain, which provided minimal relief. Orthopedics recommended follow-up with his primary care provider or a net developer with [facility] for ongoing management to prevent future recurrences. The patient has a history of cocaine and alcohol use but reports cessation years ago. He follows regularly with Dr. Briones for management of his myelodysplastic syndrome. On discussion with oncology, it was recommended to manage the patient for pulmonary embolism and transfer him to a tertiary care center for continued management of his myelodysplastic syndrome. 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 Stop alcohol intake and cocaine use. Exam Vital Signs Temp Pulse Resp BP Pulse Ox O2 Del Method O2 Flow Rate 97.8 F 85 18 140/97 H 100 Nasal Cannula 6 11/13/25 12:09 11/13/25 12:11/13/25 12:11/13/25 12:11/13/25 12:11/13/25 12:11/13/25 12:09 Narrative Exam General: Alert, no acute distress.Conversational and non-toxic appearing. Skin: Warm, dry, intact. No rash or ecchymoses. Head: Normocephalic, atraumatic. Eye: Normal conjunctiva, PERRL. Throat: Oral mucosa moist. No obvious lesions in oropharynx. Cardiovascular: Regular rate and rhythm, no murmur, +S1/S2. Respiratory: Lungs are clear to auscultation, respirations unlabored, no crackles, no wheezing. Gastrointestinal: Soft, nontender, non-distended. No guarding or rebound tenderness. Extremities: right knee edema, warm to touch. No edema, no cyanosis, no clubbing. Neuro: Alert and oriented x3.No focal deficits observed. Conversant, moving all extremities. No overt cerebellar signs/incoordination. Psychiatric: Cooperative, appropriate affect Objective Labs 11/14/25 05:45 11/14/25 05:45 Labs: Laboratory Results - last 24 hr 11/12/25 11/12/25 11/12/25 19:23 21:15 23:35 WBC 2.9 L RBC 2.18 L Hgb 7.0 L Hct 20.3 L* MCV 93 MCH 32.1 MCHC 34.5 RDW Std Deviation 43.5 Plt Count 162 Neut % (Auto) 14 L Lymph % (Auto) 69 H White % (Auto) 16 H Eos % (Auto) 0 Baso % (Auto) 0 Neut # (Auto) 0.4 L Lymph # (Auto) 2.0 White # (Auto) 0.5 Eos # (Auto) 0.0 Baso # (Auto) 0.0 Immature Gran # (Auto) 0.02 H Absolute Nucleated RBC 0.13 H Immature Gran % 1 H Neutrophils % (Manual) Monocytes % (Manual) Nucleated RBC % 5 H Band Neutrophils Lymphocytes (Manual) Atypical Lymphocytes Smear Path Review Cancelled ESR 75 H PT 10.5 INR 1.0 APTT 29.8 D-Dimer > 3820 H VBG pH 7.50 VBG pCO2 34 L VBG pO2 62 H VBG O2 Sat (Juan M) 95 L VBG Base Excess 3 Sodium 138 Potassium 3.5 Chloride 103 Carbon Dioxide 25.9 Anion Gap 9 BUN 16 Creatinine 1.0 Estim Creat Clear Calc 68.6 eGFR > 60 BUN/Creatinine Ratio [address] Glu mg/dL 260 H Hemoglobin A1c 10.7 H Calculated Osmolality 277 Lactic Acid 1.5 Calcium 9.3 Corrected Calcium 9.3 Magnesium 1.8 Total Bilirubin 0.2 L Direct Bilirubin < 0.1 AST 14 ALT 17 Alkaline Phosphatase 86 Total Creatine Kinase 35 Troponin I < 0.002 C-Reactive Prot, Quant 9.4 H B-Natriuretic Peptide < 20 Total Protein 7.7 Albumin 4.0 Globulin 3.7 H Albumin/Globulin Ratio 1.1 L Lipase 60 H Beta-Hydroxybutyrate/Acetoacetate 0.0 Procalcitonin 0.12 TSH 1.87 Ur Collection Type Clean Catch Urine Color Lt-Yellow Urine Clarity Clear Urine pH 6.5 Ur Specific Irene < 1.005 Urine Protein Negative Urine Glucose (UA) 4+ A Urine Ketones Negative Urine Blood Negative Urine Nitrite Negative Urine Bilirubin Negative Urine Urobilinogen (Auto) Negative Ur Leukocyte Esterase Negative Urine RBC 2 Urine WBC 1 Ur Squamous Epith Cells < 1 Urine Bacteria None Ur Culture Indicated? Not Indicated Ethyl Alcohol < 3.0 Blood Type O Positive Antibody Screen NEGATIVE Crossmatch See Detail Blood Bank Wristband ID Yes 11/13/25 11/13/25 06:26 10:12 WBC 1.5 L D RBC 3.14 L Hgb 9.6 L D Hct 27.9 L MCV 89 MCH 30.6 MCHC 34.4 RDW Std Deviation 42.1 Plt Count 156 Neut % (Auto) 28 L Lymph % (Auto) 46 White % (Auto) 23 H Eos % (Auto) 0 Baso % (Auto) 1 Neut # (Auto) 0.4 L Lymph # (Auto) 0.7 L White # (Auto) 0.3 Eos # (Auto) 0.0 Baso # (Auto) 0.0 Immature Gran # (Auto) 0.03 H Absolute Nucleated RBC 0.14 H Immature Gran % 2 H Neutrophils % (Manual) 25 L Monocytes % (Manual) 10 H Nucleated RBC % 10 H Band Neutrophils 2 Lymphocytes (Manual) 63 H Atypical Lymphocytes Occ Smear Path Review Sent to Pathologist ESR PT 10.9 INR 1.0 APTT 66.3 H D D-Dimer VBG pH VBG pCO2 VBG pO2 VBG O2 Sat (Juan M) VBG Base Excess Sodium 141 Potassium 4.1 D Chloride 106 Carbon Dioxide 25.7 Anion Gap 9 BUN 13 Creatinine 0.7 Estim Creat Clear Calc 98.2 eGFR > 60 BUN/Creatinine Ratio 19 [address]ucose [address] Glu mg/dL Hemoglobin A1c Calculated Osmolality 283 Lactic Acid Calcium 8.9 Corrected Calcium Magnesium Total Bilirubin Direct Bilirubin AST ALT Alkaline Phosphatase Total Creatine Kinase Troponin I C-Reactive Prot, Quant B-Natriuretic Peptide Total Protein Albumin Globulin Albumin/Globulin Ratio Lipase Beta-Hydroxybutyrate/Acetoacetate Procalcitonin TSH Ur Collection Type Urine Color Urine Clarity Urine pH Ur Specific Irene Urine Protein Urine Glucose (UA) Urine Ketones Urine Blood Urine Nitrite Urine Bilirubin Urine Urobilinogen (Auto) Ur Leukocyte Esterase Urine RBC Urine WBC Ur Squamous Epith Cells Urine Bacteria Ur Culture Indicated? Ethyl Alcohol Blood Type Antibody Screen Crossmatch Blood Bank Wristband ID ABG Interpretation ABG results: 11/12/25 19:23 VBG pH 7.50 VBG pCO2 34 L VBG pO2 62 H VBG Base Excess 3 Quality Measures Quality Measures none Assessment & Plan Assessment Current Active Medications: Generic Name Dose Route Start Last Admin Trade Name Ashley PRN Reason Stop Dose Admin Acetaminophen 650 mg 11/13/25 02:44 11/13/25 07:39 Acetaminophen 325 Mg Tablet PO 12/13/25 02:43 650 mg Q6H PRN Administration Fever >101.5 Dextrose 25 ml 11/13/25 07:59 Dextrose 50%-Water Inj 50 Ml Syringe IV 12/13/25 07:58 Q15MIN PRN BG 50-70 responsive npo pt Dextrose 50 ml 11/13/25 07:59 Dextrose 50%-Water Inj 50 Ml Syringe IV 12/13/25 07:58 Q15MIN PRN BG <50 OR BG <70 & pt unresponsive Glucagon 1 mg 11/13/25 07:59 Glucagon Inj 1 Mg Vial IM Q15MIN PRN BG <70, and no IV access Heparin Sodium/Dextrose 25,000 unit in 250 mls @ 10.62 mls/hr 11/13/25 02:45 11/13/25 10:30 Heparin In D5w Ivpb IV 11/27/25 02:44 18 units/kg/hr .[id number] NITZA 10.62 mls/hr Protocol Titration 18 UNITS/KG/HR Insulin Degludec 20 unit 11/13/25 09:00 11/13/25 09:17 Insulin Degludec 5 Unit/0.05 Ml (Per 5 Units) SC 12/13/25 08:59 20 unit BID NITZA Administration Insulin Human Lispro 0 unit 11/13/25 11:30 11/13/25 12:06 Insulin Lispro (Admelog) 1 Unit/0.01 Ml Unit SC 12/13/25 11:29 4 unit AC NITZA Administration Protocol Magnesium Hydroxide 30 ml 11/13/25 02:44 Milk Of Magnesia Susp 30 Ml Udc PO 12/13/25 02:43 QDAY PRN CONSTIPATION Protocol Ondansetron HCl 4 mg 11/13/25 02:44 Ondansetron Inj 2 Mg/Ml Inj 2 Ml IVP 12/13/25 02:43 Q6H PRN NAUSEA OR VOMITING Protocol Pantoprazole Sodium 40 mg 11/13/25 09:00 11/13/25 09:16 Pantoprazole 40 Mg Tablet PO 12/13/25 08:59 40 mg QDAY NITZA Administration Sodium Chloride 3 ml 11/12/25 19:11 11/12/25 20:55 Sodium Chloride Rt Sruthi 0.9% 3 Ml Nebu INH 12/12/25 19:10 3 ml PRN PRN Administration SOLN Plan The patient is a 40-year-old male with a significant past medical history of diabetes mellitus (on insulin), gout arthritis, and recently diagnosed myelodysplastic syndrome (June 2025). He was sent by his primary care provider to the hospital for evaluation of palpitations. Found to be pancytopenic and CTAP showed small right lower lobe pulmonary tumor emboli. Patient admitted for PE and symptomatic anemia evaluation and management. #Right LL pulmonary emboli in setting of # Myelodysplastic syndrome Patient presented to the ED per PCP recommendation for palpitations; however, on evaluation, the patient denies palpitations, hemoptysis, shortness of breath, pleuritic chest pain, or lightheadedness. Imaging confirmed pulmonary embolism, which is likely related to underlying hypercoagulable state associated with myelodysplastic syndrome, as MDS is known to increase thrombotic risk. In the ED patient was sinus tachycardia for which ED EKG -Sinus tachycardia with a rate 143, provider gave [id number] mg x 1, rate now improving. - Venous Doppler was negative for DVT. - CTAP- Positive for small right lower lobe pulmonary artery emboli - D- dimer >3820, trops negative, bnp <20 -PESI score - 101 points, Class III- Intermediate Risk: 3.2-7.1% 30-day mortality in this group. - Well score: 6 points- moderate risk - bone marrow biopsy in 06/2025 and diagnosed to have myelodysplastic syndrome. f/u outpatient Plan - Continue therapeutic anticoagulation-heparin drip - Monitor closely for signs of bleeding or clinical deterioration # Severe Neutropenia secondary to MDS # Pancytopenia #Severe anemia Patient has Myelodysplastic syndrome for which one of the clinical findings is pancytopenia as seen in this patient. WBC 1.5, hemoglobin 9.6, hematocrit 27.9. Neutrophil 28%, monocyte 10%, neutrophil 25%, nucleated RBC 10%, lymphocytes 83%, ESR 75% -ANC: 450 cells/ul: Severe neutropenia. NCI risk category 4- need CBC w/ differential - Patient got extensive workup in 06/2025 and noted to have iron, B12 and folate within normal limits. 06/16/25: GI endoscopy done at that time did not show any malignanc, just mild gastritis Plan - Reverse isolation -Monitor for neutropenic fever, may need empiric antibiotics to cover for possible indigenous joaquin - Oncology Dr. Briones consulted, recommendation appreciated - May consider starting filgrastin to stimulate neutrophils production -Blood culture ordered, pending -Will continue to monitor CBC # Hx Gout arthritis # ?Gout flares Patient reports right knee pain associated with swelling and warmth to palpation. Prior Evaluation: The patient presented to the emergency department in September, where a diagnostic knee aspiration was performed to evaluate for septic arthritis. Synovial fluid analysis revealed a cell count of 7,206 with 65% PMNs. Multiple blood cultures were obtained, with one culture positive for Salmonella. All synovial fluid cultures showed no growth, making septic arthritis less likely. - Lifestyle and Follow-Up: The patient was counseled on lifestyle modifications on last orthopedic appt, including avoidance of purine-rich foods and maintaining adequate hydration, to help reduce gout flares. 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 Plan -Indomethacin 50 mg x 1, if knee pain improves will continue regimen for 5 days to reduce flares - Pending med rec # Diabetes mellitus, insulin-dependent On admission glucose 111 and A1C 10.7. Patient reported that he is using insulin 30 units at home but unsure of the type of the insulinan Plan - Continue insulin sliding scale with Accu-Cheks - Insulin degludec 20 units twice daily - Target blood sugar 140-180 while hospitalized. #Prostatomegaly on CT Asymptomatic. No intervention needed at this time Hospital management: Lines: peripheral IV Diet: low microbial Bowel: Magnesium recommending a suppository a GI prophylaxis: pantoprazole DVT prophylaxis: pe tx Disposition: Med/tele for pulmonary embolus neutropenia examination and management CODE STATUS: Full code Patient assessed under supervision of attending physician and senior resident Dr. Oliver PGY-2 Shaunna Sawyer MD PGY-1, Internal Medicine Please note: this document was transcribed using voice recognition technology; minor inaccuracies may be present. Attending Provider Attestation/Addendum I have examined the patient, reviewed labs and imaging findings, discussed the case with the resident(s), and reviewed entered orders. I agree with the plan of care as outlined in this note. Dr. Jonel MD
[2025-11-13 16:39] LABS: Partial Thromboplastin Time 51.3 Seconds (22.0-36.0)
[2025-11-13] MEDS: INDOMETHACIN 25 MG CAPSULE 50 MG PO (17:34)
[2025-11-13 23:50] LABS: Partial Thromboplastin Time 48.8 Seconds (22.0-36.0)
[2025-11-14] VITALS (7 sets, daily range): BP systolic 90–112; BP diastolic 58–68; PULSE 80–114; RESP 17–20; TEMP 36.8–37.9; O2SAT 94–97
[2025-11-14] MEDS: Heparin/D5w 25K 250 ML Ivpb 25,000 UNIT/250 ML BAG 11.8 UNIT IV ×2 (00:40→22:45)
[2025-11-14] MEDS: HEPARIN SOD INJ 5000 UNIT/ML VIAL 1880 UNIT IV (00:48)
[2025-11-14 06:54] LABS: Basophils # (Auto) 0.0 Thou/mm3 (0.0-0.2); Basophils % (Auto) 1 % (0-2.5); Eosinophils # (Auto) 0.0 Thou/mm3 (0.0-0.5); Eosinophils % (Auto) 1 % (0-10); Hematocrit 28.4 % (41.0-53.0); Hemoglobin 9.6 g/dL (13.5-16.0); Immature Granulocytes Auto 0.07 Thou/mm3 (0.00-0.00); Lymphocytes # (Auto) 1.1 Thou/mm3 (1.0-4.8); Lymphocytes % (Auto) 61 % (10-50); Mean Corpuscular HGB Conc 33.8 g/dl (31.0-37.0); Mean Corpuscular Hemoglobin 29.9 pg (25.0-35.0); Mean Corpuscular Volume 89 fL (80-100); Monocytes # (Auto) 0.4 Thou/mm3 (0.0-0.8); Monocytes % (Auto) 21 % (0-12); Neutrophils # (Auto) 0.2 Thou/mm3 (1.8-7.7); Neutrophils % (Auto) 13 % (37-80); Nucleated Red Blood Cell # 0.09 Thou/mm3 (0.00-0.00); Nucleated Red Blood Cell % 5 /100 WBC (0); Platelet Count 156 Thou/mm3 (140-440); RDW Standard Deviation 42.9 fL (35.1-43.9); Red Blood Count 3.21 Miln/mm3 (4.50-5.90); White Blood Count 1.7 Thou/mm3 (3.8-10.6)
[2025-11-14 07:12] LABS: Anion Gap 10 (7-16); BUN/Creatinine Ratio 15 Ratio (12-20); Blood Urea Nitrogen 12 mg/dL (9-23); Calcium 8.9 mg/dL (8.3-10.6); Carbon Dioxide 27.8 mMol/L (20.0-31.0); Chloride 103 mMol/L (98-107); Creatinine (Component) 0.8 mg/dL (0.6-1.3); Estimated Creatinine Clearance 82.1 mL/min (>60); Glucose 105 mg/dL (74-106); Osmolality,Calculated 280 (275-295); Potassium 3.5 mMol/L (3.4-5.1); Sodium 141 mMol/L (136-145); eGFR > 60 See Note
[2025-11-14 08:44] LABS: Partial Thromboplastin Time 60.3 Seconds (22.0-36.0)
[2025-11-14] MEDS: guaiFENesin/COD SYRUP 5 ML UDC PO ×2 (09:36→22:50)
[2025-11-14] MEDS: PANTOPRAZOLE 40 MG TABLET PO (09:36)
[2025-11-14] MEDS: INSULIN DEGLUDEC 5 UNIT/0.05 ML (PER 5 UNITS) 20 UNIT SC ×2 (09:39→20:35)
--- NOTE | 2025-11-14 14:35 | ESPR_ITS ---
<Statement entered by Vaughn Oliver MD - 11/14/25 15:59> No acute overnight events. Seen and examined at bedside and patient endorses some abdominal discomfort due to dry cough. Otherwise has no complaints at this time. Touched base with client development director and recommended starting filgrastim for 7 days. Will continue to monitor patient's ANC. Also recommending transfer to tertiary care center and will follow-up on particular service being requested. Pulse of 103 but saturating well on room air and will continue heparin drip with plans to transition to oral anticoagulation likely tomorrow. CBC showing WBC of 1.7 with ANC of approximately 255 (no % bands on CBC) but will monitor on filgrastim. Hemoglobin stable after receiving 2 units pRBC. Chem panel unremarkable. ----- Note reviewed and agree with care plan as documented. Please refer to the note below for further details. Plan discussed with attending physician Dr. Jonel Oliver MD PGY-2 Internal Medicine Documentation for date of: 11/14/25 Subjective Subjective Interval history: Mr. Curtis is stating that he is doing well this morning save for a dry cough. Otherwise no fevers nor chills. He understands the plan to continue the heparin drip for his pulmonary embolism. Plan for medical team is to also evaluate neutropenia; orders for filgastrim per recommendations of Dr. Briones have been done. Otherwise AxOx4 GCS 15 Exam Vital Signs Temp Pulse Resp BP Pulse Ox O2 Del Method O2 Flow Rate 99.0 F 103 H 17 95/64 94 L Room Air 6 11/14/25 12:00 11/14/25 12:11/14/25 12:11/14/25 12:11/14/25 12:11/14/25 12:11/14/25 07:58 Narrative Exam General: alert and oriented to self/place/year, no acute distress, able to speak full sentences HEENT: NC/AT, mucous membranes moist, bilateral sclera anicteric Cardiovascular: regular rate and rhythm, S1/S2 present, no murmurs appreciated Pulmonary: clear to auscultation bilaterally, no rales/rhonchi/wheezes Abdominal: soft, nontender, present bowel sounds Musculoskeletal: no peripheral edema; R knee swollen, +/- warmth to touch vs left Skin: Warm, well-perfused Objective Labs 12/15/25 04:20 11/15/25 04:20 Labs: Laboratory Results - last 24 hr 11/13/25 11/13/25 11/14/25 16:04 23:06 05:45 WBC 1.7 L RBC 3.21 L Hgb 9.6 L Hct 28.4 L MCV 89 MCH 29.9 MCHC 33.8 RDW Std Deviation 42.9 Plt Count 156 Neut % (Auto) 13 L Lymph % (Auto) 61 H [place] % (Auto) 21 H Eos % (Auto) 1 Baso % (Auto) 1 Neut # (Auto) 0.2 L Lymph # (Auto) 1.1 [place] # (Auto) 0.4 Eos # (Auto) 0.0 Baso # (Auto) 0.0 Immature Gran # (Auto) 0.07 H Absolute Nucleated RBC 0.09 H Immature Gran % 4 H Nucleated RBC % 5 H APTT 51.3 H D 48.8 H Sodium 141 Potassium 3.5 D Chloride 103 Carbon Dioxide 27.8 Anion Gap 10 BUN 12 Creatinine 0.8 Estim Creat Clear Calc 82.1 eGFR > 60 BUN/Creatinine Ratio 15 Glucose 105 Calculated Osmolality 280 Calcium 8.9 11/14/25 07:11 WBC RBC Hgb Hct MCV MCH MCHC RDW Std Deviation Plt Count Neut % (Auto) Lymph % (Auto) [place] % (Auto) Eos % (Auto) Baso % (Auto) Neut # (Auto) Lymph # (Auto) [place] # (Auto) Eos # (Auto) Baso # (Auto) Immature Gran # (Auto) Absolute Nucleated RBC Immature Gran % Nucleated RBC % APTT 60.3 H D Sodium Potassium Chloride Carbon Dioxide Anion Gap BUN Creatinine Estim Creat Clear Calc eGFR BUN/Creatinine Ratio Glucose Calculated Osmolality Calcium ABG Interpretation ABG results: 11/12/25 19:23 VBG pH 7.50 VBG pCO2 34 L VBG pO2 62 H VBG Base Excess 3 Quality Measures Quality Measures VTE prophylaxis Assessment & Plan Assessment Current Active Medications: Generic Name Dose Route Start Last Admin Trade Name Freq PRN Reason Stop Dose Admin Acetaminophen 650 mg 11/13/25 02:44 11/13/25 15:55 Acetaminophen 325 Mg Tablet PO 12/13/25 02:43 650 mg Q6H PRN Administration Fever >101.5 Dextrose 25 ml 11/13/25 07:59 Dextrose 50%-Water Inj 50 Ml Syringe IV 12/13/25 07:58 Q15MIN PRN BG 50-70 responsive npo pt Dextrose 50 ml 11/13/25 07:59 Dextrose 50%-Water Inj 50 Ml Syringe IV 12/13/25 07:58 Q15MIN PRN BG <50 OR BG <70 & pt unresponsive Glucagon 1 mg 11/13/25 07:59 Glucagon Inj 1 Mg Vial IM Q15MIN PRN BG <70, and no IV access Guaifenesin/Codeine Phosphate 5 ml 11/14/25 07:59 11/14/25 09:36 Guaifenesin/Cod Syrup 5 Ml Udc PO 12/14/25 07:58 5 ml Q4HR PRN Administration COUGH Protocol Heparin Sodium/Dextrose 25,000 unit in 250 mls @ 10.62 mls/hr 11/13/25 02:45 11/14/25 00:40 Heparin In D5w Ivpb IV 11/27/25 02:44 20 units/kg/hr .[id number] NITZA 11.8 mls/hr Protocol Administration 18 UNITS/KG/HR Insulin Degludec 20 unit 11/13/25 09:00 11/14/25 09:39 Insulin Degludec 5 Unit/0.05 Ml (Per 5 Units) SC 12/13/25 08:59 20 unit BID NITZA Administration Insulin Human Lispro 0 unit 11/13/25 11:30 11/13/25 16:45 Insulin Lispro (Admelog) 1 Unit/0.01 Ml Unit SC 12/13/25 11:29 Not Given AC NITZA Protocol Magnesium Hydroxide 30 ml 11/13/25 02:44 Milk Of Magnesia Susp 30 Ml Udc PO 12/13/25 02:43 QDAY PRN CONSTIPATION Protocol Ondansetron HCl 4 mg 11/13/25 02:44 Ondansetron Inj 2 Mg/Ml Inj 2 Ml IVP 12/13/25 02:43 Q6H PRN NAUSEA OR VOMITING Protocol Pantoprazole Sodium 40 mg 11/13/25 09:00 11/14/25 09:36 Pantoprazole 40 Mg Tablet PO 12/13/25 08:59 40 mg QDAY NITZA Administration Sodium Chloride 3 ml 11/12/25 19:11 11/12/25 20:55 Sodium Chloride Rt Sruthi 0.9% 3 Ml Nebu INH 12/12/25 19:10 3 ml PRN PRN Administration SOLN Plan The patient is a 40-year-old male with a significant past medical history of diabetes mellitus (on insulin), gout arthritis, and recently diagnosed myelodysplastic syndrome (June 2025). He was sent by his primary care provider to the hospital for evaluation of palpitations. Found to be pancytopenic and CTAP showed small right lower lobe pulmonary tumor emboli. Patient admitted for PE and symptomatic anemia evaluation and management. #Right LL pulmonary emboli in setting of # Myelodysplastic syndrome #Fever Patient presented to the ED per PCP recommendation for palpitations; however, on evaluation, the patient denies palpitations, hemoptysis, shortness of breath, pleuritic chest pain, or lightheadedness. Imaging confirmed pulmonary embolism, which is likely related to underlying hypercoagulable state associated with myelodysplastic syndrome, as MDS is known to increase thrombotic risk. In the ED patient was sinus tachycardia for which ED EKG -Sinus tachycardia with a rate 143, provider gave [id number] mg x 1, rate now improving. Dr. Briones states that the patient needs to be transferred to tertiary center for further care and workup 11/14 1x episode of fever 100.5 overnight - Venous Doppler was negative for DVT. - CTAP- Positive for small right lower lobe pulmonary artery emboli - D- dimer >3820, trops negative, bnp <20 -PESI score - 101 points, Class III- Intermediate Risk: 3.2-7.1% 30-day mortality in this group. - Well score: 6 points- moderate risk - bone marrow biopsy in 06/2025 and diagnosed to have myelodysplastic syndrome. f/u outpatient Plan - Continue therapeutic anticoagulation-heparin drip - Monitor closely for signs of bleeding or clinical deterioration -Per Dr. Briones, started filgastrim 5 mcg/kg/q24h x7 days; ~ started on 300mcg/24h -Continue to address Dr. Briones's endorsement for futher workup/transfer to tertiary care center -Blood, sputum, urine cultures -Continue to monitor temperature # Severe Neutropenia secondary to MDS # Pancytopenia #Severe anemia Patient has Myelodysplastic syndrome for which one of the clinical findings is pancytopenia as seen in this patient. WBC 1.5, hemoglobin 9.6, hematocrit 27.9. Neutrophil 28%, monocyte 10%, neutrophil 25%, nucleated RBC 10%, lymphocytes 83%, ESR 75% -ANC: 450 cells/ul: Severe neutropenia. NCI risk category 4- need CBC w/ differential - Patient got extensive workup in 06/2025 and noted to have iron, B12 and folate within normal limits. 06/16/25: GI endoscopy done at that time did not show any malignanc, just mild gastritis Plan - Reverse isolation -Monitor for neutropenic fever, may need empiric antibiotics to cover for possible indigenous joaquin - Oncology Dr. Briones consulted, recommendation appreciated - May consider starting filgrastin to stimulate neutrophils production -Blood culture ordered, pending -Will continue to monitor CBC # Hx Gout arthritis # Gout flares Patient reports right knee pain associated with swelling and warmth to palpation. Prior Evaluation: The patient presented to the emergency department in September, where a diagnostic knee aspiration was performed to evaluate for septic arthritis. Synovial fluid analysis revealed a cell count of 7,206 with 65% PMNs. Multiple blood cultures were obtained, with one culture positive for Salmonella. All synovial fluid cultures showed no growth, making septic arthritis less likely. - Lifestyle and Follow-Up: The patient was counseled on lifestyle modifications on last orthopedic appt, including avoidance of purine-rich foods and maintaining adequate hydration, to help reduce gout flares. 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 Plan -Indomethacin 50 mg x 1, if knee pain improves will continue regimen for 5 days to reduce flares - Pending med rec -XR R knee follow up # Diabetes mellitus, insulin-dependent On admission glucose 111 and A1C 10.7. Patient reported that he is using insulin 30 units at home but unsure of the type of the insulinan Plan - Continue insulin sliding scale with Accu-Cheks - Insulin degludec 20 units twice daily - Target blood sugar 140-180 while hospitalized. #Prostatomegaly on CT Asymptomatic. No intervention needed at this time Patient seen and discussed with attending physician Dr. Smiba Remy and senior resident Dr. Vaughn Allen MD PGY-1 Attending Provider Attestation/Addendum I have examined the patient, reviewed labs and imaging findings, discussed the case with the resident(s), and reviewed entered orders. I agree with the plan of care as outlined in this note. Dr. Jonel MD
--- NOTE | 2025-11-14 15:00 | XR_ITS ---
Examination: Knee, 5 Technique: Knee AP, lateral, RPO LPO axial right knee 5 views Date and time of exam: November 14, 2025, 1446 hours INDICATIONS: Neutropenia diagnosis, knee pain, clinical diagnosis gouty arthropathy versus osteomyelitis FINDINGS: Advanced osteoarthritis narrowing medial joint space Moderate osteoarthritis patellofemoral joint Moderate knee effusion, seen with internal derangement of the knee No fracture There is no true lateral view of the knee IMPRESSION: Advanced osteoarthritis medial joint space Moderate osteoarthritis patellofemoral joint Moderate knee effusion, seen with internal derangement of the knee
--- NOTE | 2025-11-14 15:59 | PC.SS ---
Rounding: on heprin drip, following.
[2025-11-14] MEDS: FILGRASTIM INJ (ZARXIO) 300 MCG/0.5 ML SYRINGE SC (17:18)
[2025-11-14] MEDS: ACETAMINOPHEN 325 MG TABLET 650 MG PO (17:19)
[2025-11-15] VITALS (9 sets, daily range): BP systolic 97–109; BP diastolic 52–68; PULSE 79–120; RESP 16–30; TEMP 36.3–39.4; O2SAT 92–96
[2025-11-15] MEDS: guaiFENesin/COD SYRUP 5 ML UDC PO (02:58)
[2025-11-15] MEDS: ACETAMINOPHEN 325 MG TABLET 650 MG PO ×2 (03:50→21:38)
[2025-11-15] MEDS: RINGERS LACTATED 1000 ML 1,000 ML 999 ML IV (04:13)
--- NOTE | 2025-11-15 04:16 | PD.RESEVENT ---
Documentation for date of: 11/15/25 Event Note Event Note: Rapid Response Room:?359 Time:?0400 Reason for Call:?Fever 103F, sepsis alert criteria Patient presentation:?Patient relaxing comfortably in bed with wet towel over his head. Events:? Rapid response was called at 0400 for fever of 103 ?F, which satisfies SIRS criteria for sepsis alert as patient had fever, tachycardia with heart rate 120s, and leukopenia with most recent WBC at 1.7. Lab response was upgraded to sepsis alert shortly thereafter. Sepsis alert had not yet been called in the ED previously as the patient was afebrile in the ED. Resident physician team came to assess the patient. Patient does not appear to be in any acute distress and was following all commands. New orders:?Lab to collect morning labs, lactic acid, 1 L LR bolus, repeated blood cultures, started the patient on cefepime and held vancomycin as there is no catheters or hemodynamic instability Patient was discussed with the attending, Dr. Lopez, and senior resident Dr. Ortiz, PGY-2. López Carrasco, PGY-1
[2025-11-15 04:49] LABS: Lactate (Lactic Acid) 0.7 mMol/L (0.4-2.0)
[2025-11-15 04:55] LABS: Basophils # (Auto) 0.0 Thou/mm3 (0.0-0.2); Basophils % (Auto) 0 % (0-2.5); Eosinophils # (Auto) 0.0 Thou/mm3 (0.0-0.5); Eosinophils % (Auto) 0 % (0-10); Hematocrit 27.2 % (41.0-53.0); Hemoglobin 9.2 g/dL (13.5-16.0); Immature Granulocytes Auto 0.09 Thou/mm3 (0.00-0.00); Lymphocytes # (Auto) 1.8 Thou/mm3 (1.0-4.8); Lymphocytes % (Auto) 61 % (10-50); Mean Corpuscular HGB Conc 33.8 g/dl (31.0-37.0); Mean Corpuscular Hemoglobin 30.0 pg (25.0-35.0); Mean Corpuscular Volume 89 fL (80-100); Monocytes # (Auto) 0.6 Thou/mm3 (0.0-0.8); Monocytes % (Auto) 18 % (0-12); Neutrophils # (Auto) 0.5 Thou/mm3 (1.8-7.7); Neutrophils % (Auto) 17 % (37-80); Nucleated Red Blood Cell # 0.10 Thou/mm3 (0.00-0.00); Nucleated Red Blood Cell % 3 /100 WBC (0); Platelet Count 144 Thou/mm3 (140-440); RDW Standard Deviation 42.4 fL (35.1-43.9); Red Blood Count 3.07 Miln/mm3 (4.50-5.90); White Blood Count 3.0 Thou/mm3 (3.8-10.6)
[2025-11-15 05:21] LABS: Anion Gap 8 (7-16); BUN/Creatinine Ratio 16 Ratio (12-20); Blood Urea Nitrogen 14 mg/dL (9-23); Calcium 8.5 mg/dL (8.3-10.6); Carbon Dioxide 26.7 mMol/L (20.0-31.0); Chloride 100 mMol/L (98-107); Creatinine (Component) 0.9 mg/dL (0.6-1.3); Estimated Creatinine Clearance 73.0 mL/min (>60); Glucose 105 mg/dL (74-106); Osmolality,Calculated 270 (275-295); Partial Thromboplastin Time 63.4 Seconds (22.0-36.0); Potassium 3.4 mMol/L (3.4-5.1); Sodium 135 mMol/L (136-145); eGFR > 60 See Note
[2025-11-15] MEDS: CEFEPIME INJ 2 GM in SODIUM CHLORIDE 0.9% (Popper) 50 ML IV ×3 (05:28→21:34)
[2025-11-15] MEDS: PANTOPRAZOLE 40 MG TABLET PO (08:25)
--- NOTE | 2025-11-15 10:41 | XR_ITS ---
EXAMINATION: AP chest single view TECHNIQUE: AP portable sitting chest single view Date and time: November 15, 2025, 1141 hours INDICATIONS: Shortness of breath today. FINDINGS: Normal heart size Lungs are clear. Moderate osteopenia IMPRESSION: No active disease
[2025-11-15] MEDS: INSULIN LISPRO (AdmeLOG) 1 UNIT/0.01 ML UNIT SC ×2 (11:53→17:43)
--- NOTE | 2025-11-15 12:27 | ESPR_ITS ---
<Statement entered by Vaughn Oliver MD - 11/15/25 13:54> Overnight patient had rapid response/sepsis alert called for fever 103 ?F, pulse of 120. In the room patient was resting comfortably in bed, lactic acid ordered, 1 L LR bolus given, repeat blood cultures ordered, and started on cefepime. Upon evaluation in a.m., patient was again was resting comfortably in bed. Denies shortness of breath or chest discomfort but does endorse some abdominal discomfort from his coughing. He has remained afebrile since 4 AM this morning and is on room air. CBC shows increase in WBC from 1.7 to 3.0 after receiving filgrastim x 1. Hemoglobin stable. CHEM panel largely unremarkable. Blood cultures showing no growth to date. X-ray knee showing moderate knee effusion with osteoarthritis at the medial joint space and patellofemoral joint. CXR unremarkable. Will elect to not aspirate given prior documented diagnosis of gouty arthritis earlier this month. Will give additional dose of filgrastim as ANC less than 1500, continue cefepime, and follow-up cultures. Regarding PE, will transition to Eliquis 10 mg BID today for 1 week and then 5 mg for 1 week thereafter. ----- Note reviewed and agree with care plan as documented. Please refer to the note below for further details. Plan discussed with attending physician Dr. Jonel Oliver MD PGY-2 Internal Medicine Documentation for date of: 11/15/25 Subjective Subjective Interval history: Rapid Response called overnight for a fever 0350 at 103. Night team responded, started Mr. Apodaca on cefepime, gave 1L LR bolus and ginny pancultures. After his 1x febrile episode he has remained afebrile. Pt still endorses cough, describes it as dry and has not had any chest pain/tightness and does not endorse any confusion nor symptoms of fever. CXR ordered AM 11/15 negative for consolidation/effusion. Physical exam in AM negative for abnormal pulmonary auscultation. His right knee is swollen > left; knee xray from yesterday revealed advanced osteoarthritis of medial R knee joint and osteoarthritis of patelofemoral joint w/ moderate effusion. Diagnosis is consistent with gouty arthritis as documented by Dr. Pope(orthopedics) earlier this month, so in light of previous, known diagnosis and no alarm symptoms nor signs on presentation, the decision to not aspirate and culture patient's right knee was made. Has been stable since, pending cultures while on abx. Exam Vital Signs Temp Pulse Resp BP Pulse Ox O2 Del Method O2 Flow Rate 97.4 F 98 18 107/66 94 L Room Air 6 11/15/25 08:00 11/15/25 08:00 11/15/25 08:00 11/15/25 08:00 11/15/25 08:00 11/15/25 08:00 11/14/25 07:58 Narrative Exam General: alert and oriented to self/place/year, no acute distress, able to speak full sentences; thin HEENT: NC/AT, mucous membranes moist, bilateral sclera anicteric Cardiovascular: regular rate and rhythm, S1/S2 present, no murmurs appreciated Pulmonary: clear to auscultation bilaterally, no rales/rhonchi/wheezes Abdominal: soft, nontender, present bowel sounds Musculoskeletal: no peripheral edema; right knee swelling medial>lateral. No erythema nor pain on examination, passive or active range of motion Skin: Warm, well-perfused Objective Labs 11/18/25 04:38 11/18/25 04:38 Labs: Laboratory Results - last 24 hr 11/15/25 04:20 WBC 3.0 L D RBC 3.07 L Hgb 9.2 L Hct 27.2 L MCV 89 MCH 30.0 MCHC 33.8 RDW Std Deviation 42.4 Plt Count 144 Neut % (Auto) 17 L Lymph % (Auto) 61 H [place] % (Auto) 18 H Eos % (Auto) 0 Baso % (Auto) 0 Neut # (Auto) 0.5 L Lymph # (Auto) 1.8 [place] # (Auto) 0.6 Eos # (Auto) 0.0 Baso # (Auto) 0.0 Immature Gran # (Auto) 0.09 H Absolute Nucleated RBC 0.10 H Immature Gran % 3 H Nucleated RBC % 3 H APTT 63.4 H Sodium 135 L Potassium 3.4 Chloride 100 Carbon Dioxide 26.7 Anion Gap 8 BUN 14 Creatinine 0.9 Estim Creat Clear Calc 73.0 eGFR > 60 BUN/Creatinine Ratio 16 Glucose 105 Calculated Osmolality 270 L Lactic Acid 0.7 Calcium 8.5 ABG Interpretation ABG results: 11/12/25 19:23 VBG pH 7.50 VBG pCO2 34 L VBG pO2 62 H VBG Base Excess 3 Quality Measures Quality Measures VTE prophylaxis Assessment & Plan Assessment Current Active Medications: Generic Name Dose Route Start Last Admin Trade Name Ashley PRN Reason Stop Dose Admin Acetaminophen 650 mg 11/14/25 16:28 11/15/25 03:50 Acetaminophen 325 Mg Tablet PO 12/13/25 02:43 650 mg Q6H PRN Administration Fever >101.5 or PRN Headache Dextrose 25 ml 11/13/25 07:59 Dextrose 50%-Water Inj 50 Ml Syringe IV 12/13/25 07:58 Q15MIN PRN BG 50-70 responsive npo pt Dextrose 50 ml 11/13/25 07:59 Dextrose 50%-Water Inj 50 Ml Syringe IV 12/13/25 07:58 Q15MIN PRN BG <50 OR BG <70 & pt unresponsive Glucagon 1 mg 11/13/25 07:59 Glucagon Inj 1 Mg Vial IM Q15MIN PRN BG <70, and no IV access Guaifenesin/Codeine Phosphate 5 ml 11/14/25 07:59 11/15/25 02:58 Guaifenesin/Cod Syrup 5 Ml Udc PO 12/14/25 07:58 5 ml Q4HR PRN Administration COUGH Protocol Heparin Sodium/Dextrose 25,000 unit in 250 mls @ 10.62 mls/hr 11/13/25 02:45 11/14/25 22:45 Heparin In D5w Ivpb IV 11/27/25 02:44 20 units/kg/hr .[id number] NITZA 11.8 mls/hr Protocol Administration 18 UNITS/KG/HR Cefepime HCl 2 gm/ Sodium 50 mls @ 100 mls/hr 11/15/25 04:09 11/15/25 05:29 Chloride IV 11/22/25 04:08 Not Given Q8HR [facility] Insulin Degludec 20 unit 11/13/25 09:00 11/15/25 08:28 Insulin Degludec 5 Unit/0.05 Ml (Per 5 Units) SC 12/13/25 08:59 Not Given BID [facility] Insulin Human Lispro 0 unit 11/13/25 11:30 11/15/25 11:53 Insulin Lispro (Admelog) 1 Unit/0.01 Ml Unit SC 12/13/25 11:29 3 unit AC NITZA Administration Protocol Magnesium Hydroxide 30 ml 11/13/25 02:44 Milk Of Magnesia Susp 30 Ml Udc PO 12/13/25 02:43 QDAY PRN CONSTIPATION Protocol Ondansetron HCl 4 mg 11/13/25 02:44 Ondansetron Inj 2 Mg/Ml Inj 2 Ml IVP 12/13/25 02:43 Q6H PRN NAUSEA OR VOMITING Protocol Pantoprazole Sodium 40 mg 11/13/25 09:00 11/15/25 08:25 Pantoprazole 40 Mg Tablet PO 12/13/25 08:59 40 mg QDAY NITZA Administration Sodium Chloride 3 ml 11/12/25 19:11 11/12/25 20:55 Sodium Chloride Rt Sruthi 0.9% 3 Ml Nebu INH 12/12/25 19:10 3 ml PRN PRN Administration SOLN Plan The patient is a 40-year-old male with a significant past medical history of diabetes mellitus (on insulin), gout arthritis, and recently diagnosed myelodysplastic syndrome (June 2025). He was sent by his primary care provider to the hospital for evaluation of palpitations. Found to be pancytopenic and CTAP showed small right lower lobe pulmonary tumor emboli. Patient admitted for PE and symptomatic anemia evaluation and management. #Right LL pulmonary emboli in setting of # Myelodysplastic syndrome #Fever Patient presented to the ED per PCP recommendation for palpitations; however, on evaluation, the patient denies palpitations, hemoptysis, shortness of breath, pleuritic chest pain, or lightheadedness. Imaging confirmed pulmonary embolism, which is likely related to underlying hypercoagulable state associated with myelodysplastic syndrome, as MDS is known to increase thrombotic risk. In the ED patient was sinus tachycardia for which ED EKG -Sinus tachycardia with a rate 143, provider gave [id number] mg x 1, rate now improving. Dr. Briones states that the patient needs to be transferred to tertiary center for further care and workup 11/14 1x episode of fever 100.5 overnight 11/15 2x fever 103 F overnight - cefepime started, pancultures collected - Venous Doppler was negative for DVT. - CTAP- Positive for small right lower lobe pulmonary artery emboli - D- dimer >3820, trops negative, bnp <20 -PESI score - 101 points, Class III- Intermediate Risk: 3.2-7.1% 30-day mortality in this group. - Well score: 6 points- moderate risk - bone marrow biopsy in 06/2025 and diagnosed to have myelodysplastic syndrome. f/u outpatient Plan - Continue therapeutic anticoagulation-heparin drip - Monitor closely for signs of bleeding or clinical deterioration -Per Dr. Briones, started filgastrim 5 mcg/kg/q24h x7 days; ~ started on 300mcg/24h, to continue for 2x more doses Goal of neupogen = ANC >1500, 500 today -Continue to address Dr. Briones's endorsement for futher workup/transfer to tertiary care center -Blood, sputum, urine cultures pending -Transition from heparin drip to PO Eliquis 11/15 10mg BID 11/15 - 11/22 then 5mg BID 11/23 - 11/30 # Severe Neutropenia secondary to MDS # Pancytopenia #Severe anemia Patient has Myelodysplastic syndrome for which one of the clinical findings is pancytopenia as seen in this patient. WBC 1.5, hemoglobin 9.6, hematocrit 27.9. Neutrophil 28%, monocyte 10%, neutrophil 25%, nucleated RBC 10%, lymphocytes 83%, ESR 75% -ANC: 450 cells/ul: Severe neutropenia. NCI risk category 4- need CBC w/ differential - Patient got extensive workup in 06/2025 and noted to have iron, B12 and folate within normal limits. 06/16/25: GI endoscopy done at that time did not show any malignant, just mild gastritis Plan - Reverse isolation -Monitor for neutropenic fever, may need empiric antibiotics to cover for possible indigenous joaquin - Oncology Dr. Briones consulted, recommendation appreciated - Dose 2/3 of Filgastrim 300mg today 11/15 -Blood culture ordered, pending -Will continue to monitor CBC # Hx Gout arthritis # Gout flares Patient reports right knee pain associated with swelling and warmth to palpation. Prior Evaluation: The patient presented to the emergency department in September, where a diagnostic knee aspiration was performed to evaluate for septic arthritis. Synovial fluid analysis revealed a cell count of 7,206 with 65% PMNs. Multiple blood cultures were obtained, with one culture positive for Salmonella. All synovial fluid cultures showed no growth, making septic arthritis less likely. - Lifestyle and Follow-Up: The patient was counseled on lifestyle modifications on last orthopedic appt, including avoidance of purine-rich foods and maintaining adequate hydration, to help reduce gout flares. 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 Plan -Indomethacin 50 mg x 1, if knee pain improves will continue regimen for 5 days to reduce flares - Pending med rec 11/15 XR consistent with known gouty arthritis, well documented by Orthopedics; to continue to monitor pending infectious workup # Diabetes mellitus, insulin-dependent On admission glucose 111 and A1C 10.7. Patient reported that he is using insulin 30 units at home but unsure of the type of the insulinan Plan - Continue insulin sliding scale with Accu-Cheks - Insulin degludec 20 units twice daily - Target blood sugar 140-180 while hospitalized. #Prostatomegaly on CT Asymptomatic. No intervention needed at this time Patient seen and discussed with attending physician Dr. Simba Remy and senior resident Dr. Vaughn Allen MD PGY-1 Attending Provider Attestation/Addendum I have examined the patient, reviewed labs and imaging findings, discussed the case with the resident(s), and reviewed entered orders. I agree with the plan of care as outlined in this note. Dr. Jonel MD
[2025-11-15 14:58] LABS: Cocci Serology, IgM Negative (Negative)
[2025-11-15] MEDS: FILGRASTIM INJ (ZARXIO) 300 MCG/0.5 ML SYRINGE SC (17:43)
[2025-11-15] MEDS: APIXABAN 2.5 MG TABLET 10 MG PO (21:34)
[2025-11-15] MEDS: INSULIN DEGLUDEC 5 UNIT/0.05 ML (PER 5 UNITS) 20 UNIT SC (21:35)
[2025-11-16] VITALS: BP 95/51; PULSE 83; RESP 20; TEMP 36.2; O2SAT 96
[2025-11-16 04:00] VITALS: BP 93/59; PULSE 75; PULSE 84; RESP 16; TEMP 36.8; O2SAT 99
[2025-11-16] MEDS: CEFEPIME INJ 2 GM in SODIUM CHLORIDE 0.9% (Popper) 50 ML IV ×3 (05:44→21:45)
[2025-11-16 05:52] LABS: Basophils # (Auto) 0.0 Thou/mm3 (0.0-0.2); Basophils % (Auto) 1 % (0-2.5); Eosinophils # (Auto) 0.0 Thou/mm3 (0.0-0.5); Eosinophils % (Auto) 1 % (0-10); Hematocrit 28.5 % (41.0-53.0); Hemoglobin 9.5 g/dL (13.5-16.0); Immature Granulocytes Auto 1.04 Thou/mm3 (0.00-0.00); Lymphocytes # (Auto) 1.9 Thou/mm3 (1.0-4.8); Lymphocytes % (Auto) 47 % (10-50); Mean Corpuscular HGB Conc 33.3 g/dl (31.0-37.0); Mean Corpuscular Hemoglobin 30.2 pg (25.0-35.0); Mean Corpuscular Volume 91 fL (80-100); Monocytes # (Auto) 1.0 Thou/mm3 (0.0-0.8); Monocytes % (Auto) 24 % (0-12); Neutrophils # (Auto) 0.1 Thou/mm3 (1.8-7.7); Neutrophils % (Auto) 2 % (37-80); Nucleated Red Blood Cell # 0.11 Thou/mm3 (0.00-0.00); Nucleated Red Blood Cell % 3 /100 WBC (0); Platelet Count 143 Thou/mm3 (140-440); RDW Standard Deviation 43.8 fL (35.1-43.9); Red Blood Count 3.15 Miln/mm3 (4.50-5.90); White Blood Count 4.1 Thou/mm3 (3.8-10.6)
[2025-11-16] MEDS: guaiFENesin/COD SYRUP 5 ML UDC PO ×3 (06:28→21:47)
[2025-11-16 06:37] LABS: Alanine Aminotransferase 67 U/L (10-49); Albumin, Serum 3.4 gm/dL (3.5-5.0); Albumin/Globulin Ratio 1.0 (1.2-2.2); Alkaline Phosphatase 74 U/L (46-116); Anion Gap 8 (7-16); Aspartate Amino Transferase 22 U/L (0-34); BUN/Creatinine Ratio 16 Ratio (12-20); Bilirubin,Total 0.4 mg/dL (0.3-1.2); Blood Urea Nitrogen 14 mg/dL (9-23); Calcium 8.7 mg/dL (8.3-10.6); Calcium (Corrected) 9.2 mg/dL (8.5-10.1); Carbon Dioxide 28.6 mMol/L (20.0-31.0); Chloride 106 mMol/L (98-107); Creatinine (Component) 0.9 mg/dL (0.6-1.3); Estimated Creatinine Clearance 73.0 mL/min (>60); Globulin 3.4 gm/dL (2.3-3.5); Glucose 101 mg/dL (74-106); Magnesium 1.9 mg/dL (1.6-2.6); Osmolality,Calculated 285 (275-295); Phosphorous 3.8 mg/dL (2.4-5.1); Potassium 3.6 mMol/L (3.4-5.1); Sodium 143 mMol/L (136-145); Total Protein 6.8 gm/dL (5.7-8.2); eGFR > 60 See Note
[2025-11-16 08:00] VITALS: BP 91/59; PULSE 90; PULSE 98; RESP 16; TEMP 36.7; O2SAT 97
[2025-11-16] MEDS: PANTOPRAZOLE 40 MG TABLET PO (08:13)
[2025-11-16] MEDS: INSULIN DEGLUDEC 5 UNIT/0.05 ML (PER 5 UNITS) 20 UNIT SC ×2 (08:13→21:45)
[2025-11-16] MEDS: APIXABAN 2.5 MG TABLET 10 MG PO ×2 (08:13→21:47)
[2025-11-16 10:59] VITALS: BMI 20.7
[2025-11-16 11:57] LABS: Cocci Serology, IgG Negative (Negative)
[2025-11-16 12:00] VITALS: BP 112/65; PULSE 96; PULSE 97; RESP 16; TEMP 37.2; O2SAT 100
--- NOTE | 2025-11-16 12:45 | ESPR_ITS ---
<Statement entered by Vaughn Oliver MD - 11/16/25 15:29> No acute overnight events. Seen and examined at bedside and resting comfortably in bed. He denies any shortness of breath or chest pain, fever, or chills. Vital signs stable as he is on room air and afebrile since previous night. CBC shows increase in WBC from 3 to 4 and ANC decreased from 500 to 100. Chem panel unremarkable. Kirk cultures at this time showing no growth. Will continue cefepime at this time and if remains afebrile overnight then will likely discharge tomorrow on eliquis for his PE. ----- Note reviewed and agree with care plan as documented. Please refer to the note below for further details. Plan discussed with attending physician Dr. Lj Oliver MD PGY-2 Internal Medicine Documentation for date of: 11/16/25 Subjective Subjective Interval history: beny CASTANO has remained afebrile overnight VSS. Day 2 of eliquis for PE, day 3 of filgrastim tx 300mg. He continues to have a dry cough, but has not endorsed chest pain, palpitations or other symptoms. Will continue to tx PE and neutropenic fever, on cefepime day 2. Exam Vital Signs Temp Pulse Resp BP Pulse Ox O2 Del Method O2 Flow Rate 98.1 F 90 16 91/59 L 97 Room Air 6 11/16/25 08:00 11/16/25 08:00 11/16/25 08:00 11/16/25 08:00 11/16/25 08:00 11/16/25 08:00 11/16/25 04:00 Narrative Exam General: alert and oriented to self/place/year, no acute distress, able to speak full sentences; turkmen speaking, AxOx4, GCS 15 - pleasant, not endorsing active symptoms HEENT: NC/AT, mucous membranes moist, bilateral sclera anicteric Cardiovascular: regular rate and rhythm, S1/S2 present, no murmurs appreciated Pulmonary: clear to auscultation bilaterally, no rales/rhonchi/wheezes Abdominal: soft, nontender, present bowel sounds Musculoskeletal: no peripheral edema; R gouty arthritis without underlying errythema Skin: Warm, well-perfused Objective Labs 11/17/25 04:47 11/17/25 04:47 Labs: Laboratory Results - last 24 hr 11/15/25 11/16/25 09:55 04:58 WBC 4.1 RBC 3.15 L Hgb 9.5 L Hct 28.5 L MCV 91 MCH 30.2 MCHC 33.3 RDW Std Deviation 43.8 Plt Count 143 Neut % (Auto) 2 L Lymph % (Auto) 47 [place] % (Auto) 24 H Eos % (Auto) 1 Baso % (Auto) 1 Neut # (Auto) 0.1 L Lymph # (Auto) 1.9 [place] # (Auto) 1.0 H Eos # (Auto) 0.0 Baso # (Auto) 0.0 Immature Gran # (Auto) 1.04 H Absolute Nucleated RBC 0.11 H Immature Gran % 26 H Nucleated RBC % 3 H Sodium 143 Potassium 3.6 Chloride 106 Carbon Dioxide 28.6 Anion Gap 8 BUN 14 Creatinine 0.9 Estim Creat Clear Calc 73.0 eGFR > 60 BUN/Creatinine Ratio 16 Glucose 101 Calculated Osmolality 285 Calcium 8.7 Corrected Calcium 9.2 Phosphorus 3.8 Magnesium 1.9 Total Bilirubin 0.4 AST 22 ALT 67 H Alkaline Phosphatase 74 Total Protein 6.8 Albumin 3.4 L Globulin 3.4 Albumin/Globulin Ratio 1.0 L Coccidioides IgG Ab Negative Coccidioides IgM Ab Negative ABG Interpretation ABG results: 11/12/25 19:23 VBG pH 7.50 VBG pCO2 34 L VBG pO2 62 H VBG Base Excess 3 Quality Measures Quality Measures VTE prophylaxis Assessment & Plan Assessment Current Active Medications: Generic Name Dose Route Start Last Admin Trade Name Freq PRN Reason Stop Dose Admin Acetaminophen 650 mg 11/14/25 16:28 11/15/25 21:38 Acetaminophen 325 Mg Tablet PO 12/13/25 02:43 650 mg Q6H PRN Administration Fever >101.5 or PRN Headache Apixaban 10 mg 11/15/25 21:00 11/16/25 08:13 Apixaban 2.5 Mg Tablet PO 11/22/25 09:01 10 mg BID NITZA Administration Dextrose 25 ml 11/13/25 07:59 Dextrose 50%-Water Inj 50 Ml Syringe IV 12/13/25 07:58 Q15MIN PRN BG 50-70 responsive npo pt Dextrose 50 ml 11/13/25 07:59 Dextrose 50%-Water Inj 50 Ml Syringe IV 12/13/25 07:58 Q15MIN PRN BG <50 OR BG <70 & pt unresponsive Filgrastim 300 mcg 11/15/25 17:30 11/15/25 17:43 Filgrastim Inj (Zarxio) 300 Mcg/0.5 Ml Syringe SC 11/18/25 17:29 300 mcg QDAY@1730 NITZA Administration Glucagon 1 mg 11/13/25 07:59 Glucagon Inj 1 Mg Vial IM Q15MIN PRN BG <70, and no IV access Guaifenesin/Codeine Phosphate 5 ml 11/14/25 07:59 11/16/25 06:28 Guaifenesin/Cod Syrup 5 Ml Udc PO 12/14/25 07:58 5 ml Q4HR PRN Administration COUGH Protocol Cefepime HCl 2 gm/ Sodium 50 mls @ 100 mls/hr 11/15/25 04:09 11/16/25 05:44 Chloride IV 11/22/25 04:08 100 mls/hr Q8HR NITZA Administration Insulin Degludec 20 unit 11/13/25 09:00 11/16/25 08:13 Insulin Degludec 5 Unit/0.05 Ml (Per 5 Units) SC 12/13/25 08:59 20 unit BID NITZA Administration Insulin Human Lispro 0 unit 11/13/25 11:30 11/16/25 11:55 Insulin Lispro (Admelog) 1 Unit/0.01 Ml Unit SC 12/13/25 11:29 Not Given AC NITZA Protocol Magnesium Hydroxide 30 ml 11/13/25 02:44 Milk Of Magnesia Susp 30 Ml Udc PO 12/13/25 02:43 QDAY PRN CONSTIPATION Protocol Ondansetron HCl 4 mg 11/13/25 02:44 Ondansetron Inj 2 Mg/Ml Inj 2 Ml IVP 12/13/25 02:43 Q6H PRN NAUSEA OR VOMITING Protocol Pantoprazole Sodium 40 mg 11/13/25 09:00 11/16/25 08:13 Pantoprazole 40 Mg Tablet PO 12/13/25 08:59 40 mg QDAY NITZA Administration Sodium Chloride 3 ml 11/12/25 19:11 11/12/25 20:55 Sodium Chloride Rt Sruthi 0.9% 3 Ml Nebu INH 12/12/25 19:10 3 ml PRN PRN Administration SOLN Plan The patient is a 40-year-old male with a significant past medical history of diabetes mellitus (on insulin), gout arthritis, and recently diagnosed myelodysplastic syndrome (June 2025). He was sent by his primary care provider to the hospital for evaluation of palpitations. Found to be pancytopenic and CTAP showed small right lower lobe pulmonary tumor emboli. Patient admitted for PE and symptomatic anemia evaluation and management. #Right LL pulmonary emboli in setting of # Myelodysplastic syndrome #Fever Patient presented to the ED per PCP recommendation for palpitations; however, on evaluation, the patient denies palpitations, hemoptysis, shortness of breath, pleuritic chest pain, or lightheadedness. Imaging confirmed pulmonary embolism, which is likely related to underlying hypercoagulable state associated with myelodysplastic syndrome, as MDS is known to increase thrombotic risk. In the ED patient was sinus tachycardia for which ED EKG -Sinus tachycardia with a rate 143, provider gave [id number] mg x 1, rate now improving. Dr. Briones states that the patient needs to be transferred to tertiary center for further care and workup 11/14 1x episode of fever 100.5 overnight 11/15 2x fever 103 F overnight - cefepime started, pancultures collected 11/16 no fever overnight, Neutrophil # ~100 despite WBC improvement to 4.1: infection progression vs improvement on filgrastim - Venous Doppler was negative for DVT. - CTAP- Positive for small right lower lobe pulmonary artery emboli - D- dimer >3820, trops negative, bnp <20 -PESI score - 101 points, Class III- Intermediate Risk: 3.2-7.1% 30-day mortality in this group. - Well score: 6 points- moderate risk - bone marrow biopsy in 06/2025 and diagnosed to have myelodysplastic syndrome. f/u outpatient Plan - Continue therapeutic anticoagulation-heparin drip - Monitor closely for signs of bleeding or clinical deterioration -Per Dr. Briones, started filgastrim 5 mcg/kg/q24h x7 days; ~ started on 300mcg/24h, to continue for 2x more doses; dose 3/3 today Goal of neupogen = ANC >1500, 500 today -11/16 follow up with lab for band count on daily CBC's to calculate ANC -Dr. Briones regarding tx of MDS: needs another clinic/site for tx in regards to insurance coverage for medications cost to be addressed s/p tx of neutropenic fever while on abx -Blood, sputum, urine cultures pending -Transitioned from heparin drip to PO Eliquis 11/15 10mg BID 11/15 - 11/22 then 5mg BID 11/23 - 11/30 # Severe Neutropenia secondary to MDS # Pancytopenia #Severe anemia Patient has Myelodysplastic syndrome for which one of the clinical findings is pancytopenia as seen in this patient. WBC 1.5, hemoglobin 9.6, hematocrit 27.9. Neutrophil 28%, monocyte 10%, neutrophil 25%, nucleated RBC 10%, lymphocytes 83%, ESR 75% -ANC: 450 cells/ul: Severe neutropenia. NCI risk category 4- need CBC w/ differential - Patient got extensive workup in 06/2025 and noted to have iron, B12 and folate within normal limits. 06/16/25: GI endoscopy done at that time did not show any malignant, just mild gastritis Plan - Reverse isolation -Monitor for neutropenic fever, may need empiric antibiotics to cover for possible indigenous joaquin - Oncology Dr. Briones consulted, recommendation appreciated - Dose 3/3 of Filgastrim 300mg today 11/16 -Blood culture ordered, pending -Will continue to monitor CBC # Hx Gout arthritis # Gout flares Patient reports right knee pain associated with swelling and warmth to palpation. Prior Evaluation: The patient presented to the emergency department in September, where a diagnostic knee aspiration was performed to evaluate for septic arthritis. Synovial fluid analysis revealed a cell count of 7,206 with 65% PMNs. Multiple blood cultures were obtained, with one culture positive for Salmonella. All synovial fluid cultures showed no growth, making septic arthritis less likely. - Lifestyle and Follow-Up: The patient was counseled on lifestyle modifications on last orthopedic appt, including avoidance of purine-rich foods and maintaining adequate hydration, to help reduce gout flares. 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 Plan -Indomethacin 50 mg x 1, if knee pain improves will continue regimen for 5 days to reduce flares - Pending med rec 11/15 XR consistent with known gouty arthritis, well documented by Orthopedics; to continue to monitor pending infectious workup # Diabetes mellitus, insulin-dependent On admission glucose 111 and A1C 10.7. Patient reported that he is using insulin 30 units at home but unsure of the type of the insulinan Plan - Continue insulin sliding scale with Accu-Cheks - Insulin degludec 20 units twice daily - Target blood sugar 140-180 while hospitalized. #Prostatomegaly on CT Asymptomatic. No intervention needed at this time Patient seen and discussed with attending physician Dr. Isis Calhoun and senior resident Dr. Vaughn Allen MD PGY-1 Attending Provider Attestation/Addendum I, Isis Calhoun, DO, attest that I was physically present for the leblanc portions of the service and evaluated the patient with the resident and I reviewed and discussed the case with the resident and agree with the resident's findings and plans of care as documented above Patient seen and evaluated this AM. he states he is feeling improved. Discussed case with violin mechanic/oncologist who recommended for patient to follow up at [facility] to initiate treatment of MDS. Patient stated that he has an appointment in [place] on Dec 21. He has been afebrile for the past 24h. He remains on cefepime. Fever may be 2/2 PE versus neutropenia. Will continue with filgrastim at this time. Anticipate DC within next 24-48h once ANC is to goal and cultures are final.
[2025-11-16] MEDS: ACETAMINOPHEN 325 MG TABLET 650 MG PO (13:31)
[2025-11-16 14:03] LABS: Path Review Blood Smear Sent to Pathologist
[2025-11-16 15:35] LABS: Neutrophils (Manual) 7 % (50-70)
[2025-11-16 15:36] LABS: Atypical Lymphs 2+; Band Neutrophils (Manual) 5 % (0-6); Basophils (Manual) 1 % (0-2); Eosinophils (Manual) 4 % (0-4); Lymphocytes (Manual) 65 % (20-44); Monocytes (Manual) 16 % (2-9)
[2025-11-16 16:00] VITALS: BP 105/60; PULSE 86; PULSE 99; RESP 16; TEMP 36.7; O2SAT 99
[2025-11-16] MEDS: FILGRASTIM INJ (ZARXIO) 300 MCG/0.5 ML SYRINGE SC (16:45)
[2025-11-16 20:00] VITALS: BP 107/69; PULSE 86; PULSE 92; RESP 16; TEMP 36.3; O2SAT 96
[2025-11-17] VITALS: BP 98/62; PULSE 81; PULSE 88; RESP 18; TEMP 36.9; O2SAT 98
[2025-11-17 04:00] VITALS: BP 104/57; PULSE 81; PULSE 82; RESP 18; TEMP 36.3; O2SAT 95
[2025-11-17] MEDS: CEFEPIME INJ 2 GM in SODIUM CHLORIDE 0.9% (Popper) 50 ML IV (05:35)
[2025-11-17] MEDS: guaiFENesin/COD SYRUP 5 ML UDC PO ×2 (05:37→11:22)
[2025-11-17 05:41] LABS: Basophils # (Auto) 0.0 Thou/mm3 (0.0-0.2); Basophils % (Auto) 1 % (0-2.5); Eosinophils # (Auto) 0.0 Thou/mm3 (0.0-0.5); Eosinophils % (Auto) 1 % (0-10); Hematocrit 27.4 % (41.0-53.0); Hemoglobin 9.2 g/dL (13.5-16.0); Immature Granulocytes Auto 0.21 Thou/mm3 (0.00-0.00); Lymphocytes # (Auto) 1.7 Thou/mm3 (1.0-4.8); Lymphocytes % (Auto) 44 % (10-50); Mean Corpuscular HGB Conc 33.6 g/dl (31.0-37.0); Mean Corpuscular Hemoglobin 30.4 pg (25.0-35.0); Mean Corpuscular Volume 90 fL (80-100); Monocytes # (Auto) 0.8 Thou/mm3 (0.0-0.8); Monocytes % (Auto) 20 % (0-12); Neutrophils # (Auto) 1.2 Thou/mm3 (1.8-7.7); Neutrophils % (Auto) 29 % (37-80); Nucleated Red Blood Cell # 0.19 Thou/mm3 (0.00-0.00); Nucleated Red Blood Cell % 5 /100 WBC (0); Platelet Count 141 Thou/mm3 (140-440); RDW Standard Deviation 43.3 fL (35.1-43.9); Red Blood Count 3.03 Miln/mm3 (4.50-5.90); White Blood Count 4.0 Thou/mm3 (3.8-10.6)
[2025-11-17 06:05] LABS: Alanine Aminotransferase 57 U/L (10-49); Albumin, Serum 3.6 gm/dL (3.5-5.0); Albumin/Globulin Ratio 1.0 (1.2-2.2); Alkaline Phosphatase 83 U/L (46-116); Anion Gap 9 (7-16); Aspartate Amino Transferase 24 U/L (0-34); BUN/Creatinine Ratio 12 Ratio (12-20); Bilirubin,Total 0.3 mg/dL (0.3-1.2); Blood Urea Nitrogen 11 mg/dL (9-23); Calcium 8.9 mg/dL (8.3-10.6); Calcium (Corrected) 9.2 mg/dL (8.5-10.1); Carbon Dioxide 27.0 mMol/L (20.0-31.0); Chloride 104 mMol/L (98-107); Creatinine (Component) 0.9 mg/dL (0.6-1.3); Estimated Creatinine Clearance 72.9 mL/min (>60); Globulin 3.5 gm/dL (2.3-3.5); Glucose 75 mg/dL (74-106); Magnesium 2.0 mg/dL (1.6-2.6); Osmolality,Calculated 277 (275-295); Phosphorous 4.2 mg/dL (2.4-5.1); Potassium 3.8 mMol/L (3.4-5.1); Sodium 140 mMol/L (136-145); Total Protein 7.1 gm/dL (5.7-8.2); eGFR > 60 See Note
[2025-11-17 08:00] VITALS: BP 98/61; PULSE 80; PULSE 87; RESP 21; TEMP 36.4; O2SAT 96
[2025-11-17] MEDS: INSULIN DEGLUDEC 5 UNIT/0.05 ML (PER 5 UNITS) 20 UNIT SC (08:56)
[2025-11-17] MEDS: PANTOPRAZOLE 40 MG TABLET PO (08:58)
[2025-11-17] MEDS: APIXABAN 2.5 MG TABLET 10 MG PO ×2 (08:58→20:51)
[2025-11-17] MEDS: Milk Of Magnesia Susp 30 ML UDC PO (11:22)
[2025-11-17] MEDS: ACETAMINOPHEN 325 MG TABLET 650 MG PO (11:22)
[2025-11-17 12:00] VITALS: BP 93/62; PULSE 79; PULSE 80; RESP 95; TEMP 36.6; O2SAT 95
[2025-11-17] MEDS: INSULIN LISPRO (AdmeLOG) 1 UNIT/0.01 ML UNIT SC ×2 (12:38→20:50)
--- NOTE | 2025-11-17 14:44 | ESPR_ITS ---
<Statement entered by Vaughn Oliver MD - 11/17/25 15:49> No acute overnight events. Seen and examined at bedside and resting comfortably in bed. Continues to have a cough that is relieved with guaifenesin. Vital signs stable as he has remained afebrile since 11/15 and on room air. CBC shows ANC of 1.2 but given that is still less than 1.5 we will do 1 more day fill gastrin and follow-up on labs tomorrow. Transition cefepime to Levaquin for oral coverage. Blood, urine, and sputum cultures have remained negative to date. The patient remains afebrile and ANC greater than 1.5 tomorrow, anticipate discharge for the next [place] 4 to 48 hours on Eliquis dose for PE ----- Note reviewed and agree with care plan as documented. Please refer to the note below for further details. Plan discussed with attending physician Dr. Lj Oliver MD PGY-2 Internal Medicine Documentation for date of: 11/17/25 Subjective Subjective Interval history: NAOE, VSS. Mr. Curtis has been afebrile and does not present with any acute concerns. Plan for today is to finish one more dose of filgastrim and monitor before tentative discharge tomorrow. Will follow up on appointment with cancer center scheduled for Dec 21. Exam Vital Signs Temp Pulse Resp BP Pulse Ox O2 Del Method O2 Flow Rate 97.8 F 79 95 H 93/62 95 Room Air 6 11/17/25 12:00 11/17/25 12:00 11/17/25 12:11/17/25 12:11/17/25 12:11/17/25 12:11/16/25 04:00 Narrative Exam General: alert and oriented to self/place/year, no acute distress, able to speak full sentences HEENT: NC/AT, mucous membranes moist, bilateral sclera anicteric Cardiovascular: regular rate and rhythm, S1/S2 present, no murmurs appreciated Pulmonary: clear to auscultation bilaterally, no rales/rhonchi/wheezes Abdominal: soft, nontender, present bowel sounds Musculoskeletal: no peripheral edema; R medial leg swelling without underlying erythema Skin: Warm, well-perfused Objective Labs 11/17/25 04:47 11/17/25 04:47 Labs: Laboratory Results - last 24 hr 11/16/25 11/17/25 04:58 04:47 WBC 4.0 RBC 3.03 L Hgb 9.2 L Hct 27.4 L MCV 90 MCH 30.4 MCHC 33.6 RDW Std Deviation 43.3 Plt Count 141 Neut % (Auto) 29 L Lymph % (Auto) 44 [place] % (Auto) 20 H Eos % (Auto) 1 Baso % (Auto) 1 Neut # (Auto) 1.2 L Lymph # (Auto) 1.7 [place] # (Auto) 0.8 Eos # (Auto) 0.0 Baso # (Auto) 0.0 Immature Gran # (Auto) 0.21 H Absolute Nucleated RBC 0.19 H Immature Gran % 5 H Neutrophils % (Manual) 7 L Monocytes % (Manual) 16 H Eosinophils % (Manual) 4 Basophils % (Manual) 1 Nucleated RBC % 5 H Band Neutrophils 5 D Lymphocytes (Manual) 65 H Atypical Lymphocytes 2+ Sodium 140 Potassium 3.8 Chloride 104 Carbon Dioxide 27.0 Anion Gap 9 BUN 11 Creatinine 0.9 Estim Creat Clear Calc 72.9 eGFR > 60 BUN/Creatinine Ratio 12 Glucose 75 Calculated Osmolality 277 Calcium 8.9 Corrected Calcium 9.2 Phosphorus 4.2 Magnesium 2.0 Total Bilirubin 0.3 AST 24 ALT 57 H Alkaline Phosphatase 83 Total Protein 7.1 Albumin 3.6 Globulin 3.5 Albumin/Globulin Ratio 1.0 L ABG Interpretation ABG results: 11/12/25 19:23 VBG pH 7.50 VBG pCO2 34 L VBG pO2 62 H VBG Base Excess 3 Quality Measures Quality Measures VTE prophylaxis Assessment & Plan Assessment Current Active Medications: Generic Name Dose Route Start Last Admin Trade Name Darrionq PRN Reason Stop Dose Admin Acetaminophen 650 mg 11/14/25 16:28 11/17/25 11:22 Acetaminophen 325 Mg Tablet PO 12/13/25 02:43 650 mg Q6H PRN Administration Fever >101.5 or PRN Headache Apixaban 10 mg 11/15/25 21:00 11/17/25 08:58 Apixaban 2.5 Mg Tablet PO 11/22/25 09:01 10 mg BID NITZA Administration Dextrose 25 ml 11/13/25 07:59 Dextrose 50%-Water Inj 50 Ml Syringe IV 12/13/25 07:58 Q15MIN PRN BG 50-70 responsive npo pt Dextrose 50 ml 11/13/25 07:59 Dextrose 50%-Water Inj 50 Ml Syringe IV 12/13/25 07:58 Q15MIN PRN BG <50 OR BG <70 & pt unresponsive Filgrastim 300 mcg 11/15/25 17:30 11/16/25 16:45 Filgrastim Inj (Zarxio) 300 Mcg/0.5 Ml Syringe SC 11/18/25 17:29 300 mcg QDAY@1730 NITZA Administration Glucagon 1 mg 11/13/25 07:59 Glucagon Inj 1 Mg Vial IM Q15MIN PRN BG <70, and no IV access Guaifenesin/Codeine Phosphate 5 ml 11/14/25 07:59 11/17/25 11:22 Guaifenesin/Cod Syrup 5 Ml Udc PO 12/14/25 07:58 5 ml Q4HR PRN Administration COUGH Protocol Insulin Degludec 20 unit 11/13/25 09:00 11/17/25 08:56 Insulin Degludec 5 Unit/0.05 Ml (Per 5 Units) SC 12/13/25 08:59 20 unit BID NITZA Administration Insulin Human Lispro 0 unit 11/13/25 11:30 11/17/25 12:38 Insulin Lispro (Admelog) 1 Unit/0.01 Ml Unit SC 12/13/25 11:29 4 unit AC NITZA Administration Protocol Levofloxacin 750 mg 11/18/25 09:00 Levofloxacin 250 Mg Tablet PO 11/25/25 08:59 QDAY NITZA Magnesium Hydroxide 30 ml 11/13/25 02:44 11/17/25 11:22 Milk Of Magnesia Susp 30 Ml Udc PO 12/13/25 02:43 30 ml QDAY PRN Administration CONSTIPATION Protocol Ondansetron HCl 4 mg 11/13/25 02:44 Ondansetron Inj 2 Mg/Ml Inj 2 Ml IVP 12/13/25 02:43 Q6H PRN NAUSEA OR VOMITING Protocol Pantoprazole Sodium 40 mg 11/13/25 09:00 11/17/25 08:58 Pantoprazole 40 Mg Tablet PO 12/13/25 08:59 40 mg QDAY NITZA Administration Sodium Chloride 3 ml 11/12/25 19:11 11/12/25 20:55 Sodium Chloride Rt Sruthi 0.9% 3 Ml Nebu INH 12/12/25 19:10 3 ml PRN PRN Administration SOLN Plan The patient is a 40-year-old male with a significant past medical history of diabetes mellitus (on insulin), gout arthritis, and recently diagnosed myelodysplastic syndrome (June 2025). He was sent by his primary care provider to the hospital for evaluation of palpitations. Found to be pancytopenic and CTAP showed small right lower lobe pulmonary tumor emboli. Patient admitted for PE and symptomatic anemia evaluation and management. #Right LL pulmonary emboli in setting of # Myelodysplastic syndrome Patient presented to the ED per PCP recommendation for palpitations; however, on evaluation, the patient denies palpitations, hemoptysis, shortness of breath, pleuritic chest pain, or lightheadedness. Imaging confirmed pulmonary embolism, which is likely related to underlying hypercoagulable state associated with myelodysplastic syndrome D- dimer >3820, trops negative, bnp <20. Well score: 6 points- moderate risk bone marrow biopsy in 06/2025 and diagnosed to have myelodysplastic syndrome 11/12 Venous Doppler was negative for DVT. 11/12 CTAP- Positive for small right lower lobe pulmonary artery emboli 11/14 1x episode of fever 100.5 overnight 11/15 2x fever 103 F overnight - cefepime started, pancultures collected 11/16 no fever overnight, Neutrophil # ~100 despite WBC improvement to 4.1: infection progression vs improvement on filgrastim 11/17 WBC stable [address] Briones, started filgastrim 5 mcg/kg/q24h x7 days; ~ started on 300mcg/24h, to continue for 2x more doses; dose 3/3 11/16 Goal of neupogen = ANC >1500 Dr. Briones regarding tx of MDS: needs another clinic/site for tx in regards to insurance coverage for medications cost to be addressed s/p tx of neutropenic fever while on abx -follow up with lab for band count on daily CBC's to calculate ANC -Blood, sputum, urine cultures NGTD from 11/15 -Transitioned from heparin drip to PO Eliquis 11/15 10mg BID 11/15 - 11/22 then 5mg BID 11/23 - 11/30 -Eliquis 11/15 -> # Severe Neutropenia secondary to MDS # Pancytopenia #Severe anemia #Neutropenic Fever Patient has Myelodysplastic syndrome for which one of the clinical findings is pancytopenia as seen in this patient. WBC 1.5, hemoglobin 9.6, hematocrit 27.9. Neutrophil 28%, monocyte 10%, neutrophil 25%, nucleated RBC 10%, lymphocytes 83%, ESR 75% ANC: 450 cells/ul: Severe neutropenia. NCI risk category 4- need CBC w/ differential Patient got extensive workup in 06/2025 and noted to have iron, B12 and folate within normal limits. 06/16/25: GI endoscopy done at that time did not show any malignant, just mild gastritis - Reverse isolation -Monitor for neutropenic fever, may need empiric antibiotics to cover for possible indigenous joaquin - Oncology Dr. Briones consulted, recommendation appreciated - Dose 3/3 of Filgastrim 300mg today 11/16 -Blood culture ordered 11/15 NGTD -Will continue to monitor CBC -Cefepime 11/15 --> dc'ed, started Levoquine 750mg q24h x5days 11/17 -> # Hx Gout arthritis # Gout flares Patient reports right knee pain associated with swelling and warmth to palpation. Prior Evaluation: The patient presented to the emergency department in September, where a diagnostic knee aspiration was performed to evaluate for septic arthritis. Synovial fluid analysis revealed a cell count of 7,206 with 65% PMNs. Multiple blood cultures were obtained, with one culture positive for Salmonella. All synovial fluid cultures showed no growth, making septic arthritis less likely. - Lifestyle and Follow-Up: The patient was counseled on lifestyle modifications on last orthopedic appt, including avoidance of purine-rich foods and maintaining adequate hydration, to help reduce gout flares. 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 -11/15 XR consistent with known gouty arthritis, well documented by Orthopedics; to continue to monitor pending infectious workup # Diabetes mellitus, insulin-dependent On admission glucose 111 and A1C 10.7. Patient reported that he is using insulin 30 units at home but unsure of the type of the insulinan Plan - Continue insulin sliding scale with Accu-Cheks - Insulin degludec 20 units twice daily - Target blood sugar 140-180 while hospitalized. #Prostatomegaly on CT Asymptomatic. No intervention needed at this time Hospital management: Disposition: Last dose of filgastrim, abx transition Fluids: NA Diet: diabetic diet Lines: PIV DVT prophylaxis: Eliquis CODE STATUS: full code/DNR Patient seen and discussed with attending physician Dr. Isis Calhoun and senior resident Dr. Vaughn Allen MD PGY-1 Attending Provider Attestation/Addendum I, Isis Calhoun, DO, attest that I was physically present for the leblanc portions of the service and evaluated the patient with the resident and I reviewed and discussed the case with the resident and agree with the resident's findings and plans of care as documented above Pt seen and evaluated this AM. ANC is 1100. Will continue with filgrastim with goal of >1500. Pt has otherwise been afebrile. Blood cultures have been negative. Will switch abx to levaquin 750mg po daily. pt continues to complain of cough. He states he has an appt for outpatient oncology on Dec 21, arranged by his sister. Anticipate DC within next 24h if ANC is to goal.
[2025-11-17 16:00] VITALS: BP 92/59; PULSE 81; PULSE 95; RESP 18; TEMP 36.3; O2SAT 95
[2025-11-17] MEDS: FILGRASTIM INJ (ZARXIO) 300 MCG/0.5 ML SYRINGE SC (17:10)
[2025-11-17 20:00] VITALS: BP 113/64; PULSE 80; PULSE 82; RESP 20; TEMP 36.6; O2SAT 94
[2025-11-18] VITALS: BP 88/53; PULSE 75; PULSE 77; RESP 15; TEMP 36.4; O2SAT 97
[2025-11-18] MEDS: ACETAMINOPHEN 325 MG TABLET 650 MG PO (00:02)
[2025-11-18 01:54] VITALS: BP 91/54; PULSE 96; RESP 18; O2SAT 96
--- NOTE | 2025-11-18 01:54 | PC.NURSE ---
Dr. Ortiz contacted due to pt's BP being low (91/54) even after elevating legs. to review chart and order fluids
[2025-11-18] MEDS: RINGERS LACTATED 1000 ML 1,000 ML 999 ML IV (02:02)
[2025-11-18 03:21] VITALS: BP 98/57; PULSE 69; RESP 18; TEMP 36.1; O2SAT 98
--- NOTE | 2025-11-18 03:21 | PC.NURSE ---
Dr. Carrasco notified after completion of 1L LR Bolus due to low BP, new BP after bolus is 98/57, Dr charlesayed as long as MAP is above 65
[2025-11-18 04:00] VITALS: BP 98/63; PULSE 67; PULSE 71; RESP 18; TEMP 36.5; O2SAT 92
[2025-11-18 05:31] LABS: Basophils # (Auto) 0.0 Thou/mm3 (0.0-0.2); Basophils % (Auto) 1 % (0-2.5); Eosinophils # (Auto) 0.0 Thou/mm3 (0.0-0.5); Eosinophils % (Auto) 0 % (0-10); Hematocrit 25.7 % (41.0-53.0); Immature Granulocytes Auto 0.34 Thou/mm3 (0.00-0.00); Lymphocytes # (Auto) 2.1 Thou/mm3 (1.0-4.8); Lymphocytes % (Auto) 39 % (10-50); Mean Corpuscular HGB Conc 34.2 g/dl (31.0-37.0); Mean Corpuscular Hemoglobin 30.8 pg (25.0-35.0); Mean Corpuscular Volume 90 fL (80-100); Monocytes # (Auto) 0.7 Thou/mm3 (0.0-0.8); Monocytes % (Auto) 14 % (0-12); Neutrophils # (Auto) 2.1 Thou/mm3 (1.8-7.7); Neutrophils % (Auto) 40 % (37-80); Nucleated Red Blood Cell # 0.16 Thou/mm3 (0.00-0.00); Nucleated Red Blood Cell % 3 /100 WBC (0); Platelet Count 135 Thou/mm3 (140-440); RDW Standard Deviation 43.8 fL (35.1-43.9); Red Blood Count 2.86 Miln/mm3 (4.50-5.90); White Blood Count 5.4 Thou/mm3 (3.8-10.6)
[2025-11-18 05:34] LABS: Hemoglobin 8.8 g/dL (13.5-16.0)
[2025-11-18 06:24] LABS: Alanine Aminotransferase 48 U/L (10-49); Albumin, Serum 3.2 gm/dL (3.5-5.0); Albumin/Globulin Ratio 1.0 (1.2-2.2); Alkaline Phosphatase 80 U/L (46-116); Anion Gap 9 (7-16); Aspartate Amino Transferase 26 U/L (0-34); BUN/Creatinine Ratio 13 Ratio (12-20); Bilirubin,Total 0.3 mg/dL (0.3-1.2); Blood Urea Nitrogen 10 mg/dL (9-23); Calcium 8.7 mg/dL (8.3-10.6); Calcium (Corrected) 9.3 mg/dL (8.5-10.1); Carbon Dioxide 27.9 mMol/L (20.0-31.0); Chloride 104 mMol/L (98-107); Creatinine (Component) 0.8 mg/dL (0.6-1.3); Estimated Creatinine Clearance 82.0 mL/min (>60); Globulin 3.2 gm/dL (2.3-3.5); Glucose 173 mg/dL (74-106); Magnesium 1.9 mg/dL (1.6-2.6); Osmolality,Calculated 284 (275-295); Phosphorous 4.0 mg/dL (2.4-5.1); Potassium 4.3 mMol/L (3.4-5.1); Sodium 141 mMol/L (136-145); Total Protein 6.4 gm/dL (5.7-8.2); eGFR > 60 See Note
[2025-11-18] MEDS: guaiFENesin/COD SYRUP 5 ML UDC PO (07:24)
[2025-11-18 08:00] VITALS: BP 106/64; PULSE 70; PULSE 93; RESP 15; TEMP 36.8; O2SAT 98
[2025-11-18] MEDS: PANTOPRAZOLE 40 MG TABLET PO (08:39)
[2025-11-18] MEDS: APIXABAN 2.5 MG TABLET 10 MG PO (08:39)
[2025-11-18] MEDS: INSULIN DEGLUDEC 5 UNIT/0.05 ML (PER 5 UNITS) 20 UNIT SC (08:39)
[2025-11-18] MEDS: INSULIN LISPRO (AdmeLOG) 1 UNIT/0.01 ML UNIT SC (11:43)
[2025-11-18 12:00] VITALS: BP 93/53; PULSE 71; PULSE 91; RESP 16; TEMP 36.8; O2SAT 99
--- NOTE | 2025-11-18 12:01 | PC.NURSE ---
Patient will discharged after lunch. Insulin given for blood sugar of 270.
== END 2025-11-18 13:25 | disposition home or self-care (01) | DRG 134 ==
LOC: SERX 11-13 01:08 → SERHOLD 11-13 03:52 → S3NX 11-15 06:00
PROVIDERS: Student in an Organized Health Care Education/Training Program; Admitting Provider Student in an Organized Health Care Education/Training Program; Emergency Provider Emergency Medicine; PCP Family Medicine; Visit Provider Internal Medicine
DX: I26.99 Other pulmonary embolism without acute cor pulmonale (principal); D46.9 Myelodysplastic syndrome, unspecified; J96.01 Acute respiratory failure with hypoxia; E11.9 Type 2 diabetes mellitus without complications; D61.818 Other pancytopenia; M10.9 Gout, unspecified; G89.29 Other chronic pain; N40.0 Benign prostatic hyperplasia without lower urinary tract symptoms; Z79.4 Long term (current) use of insulin; M17.11 Unilateral primary osteoarthritis, right knee; Z66 Do not resuscitate; Z78.9 Other specified health status
CPT/HCPCS: 36415; 36430; 71045; 71275; 73564; 74174; 80048; 80053; 80320; 81001; 82010; 82248; 82550; 82803; 83036; 83605; 83690; 83735; 83880; 84100; 84145; 84443; 84484; 85025; 85379; 85610; 85652; 85730; 86140; 86331; 86635; 86850; 86900; 86901; 86923; 87040; 87081; 87086; 87205; 87502; 87635; 93005; 93225; 93970; 94640; 96374; 99284; A4649; J0692; J1644; J1815; J2919; J7030; J7050; J7120; J7612; P9016; Q5101; Q9967; A9270; G0480